=== PATIENT | male | born 1955 | race African-American/Black ===

== ENCOUNTER 2018-08-17 07:24 | Inpatient (IN) | payer OTHER ==
--- NOTE | 2018-08-17 07:40 | PDOC ---
History of Present Illness - General Chief Complaint: Rectal Bleed Stated Complaint: RECTAL BLEEDING Time Seen by Provider: 08/17/18 07:39 - History of Present Illness Initial Comments: 08/17/18 08:56 The patient is a 63 year old male with a history of HTN, anxiety who presents for evaluation of rectal bleeding. The patient notes a 3 day history of bright red in his stool with black colored stool as well. He notes that he has been experiencing blood in his stool with every bowel movement. He states that today , he began feeling extremely fatigued prompting his presentation to the ED for further evaluation. He denies ever experiencing rectal bleeding in the past and otherwise denies fevers, chills, SOB, chest pain, nausea, vomiting, abdominal pain, or changes with urination. Of note, the patient reports almost daily alcohol use but is unsure of the amount of alcohol. Past History - Past Medical History Allergies/Adverse Reactions: Allergies Allergy/AdvReac Type Severity Reaction Status Date / Time No Known Allergies Allergy Verified 08/17/18 07:46 COPD: No HTN: Yes Psychiatric Problems: Yes (anxiety) Other medical history: ETOH - Suicide/Smoking/Psychosocial Hx Smoking History: Never smoked Have you smoked in the past 12 months: No Information on smoking cessation initiated: No Hx Alcohol Use: Yes Drug/Substance Use Hx: No Review of Systems - Review of Systems Comments:: 08/17/18 09:15 Constitutional: Fatigue. No fevers, chills, malaise HEENT: No Rhinorrhea, nasal congestion, visual changes Cardiovascular: No chest pain, syncope, palpitations, lightheadedness Respiratory: No Cough, SOB, Hemoptysis, Gastrointestinal: BRBPR, Melena. No Abdominal pain, Nausea, Vomiting, Constipation, Diarrhea, Genitourinary: No Dysuria, Frequency, Urgency, Hesitancy, Hematuria, Flank pain Musculoskeletal: No Myalgia, arthralgia Skin: Pallor. No rashes, itching, bruising, Neurologic: No Headache, Dizziness, Numbness, Weakness, or Tingling Psychiatric: No Hallucinations. No SI or HI *Physical Exam - Vital Signs Last Vital Signs Temp Pulse Resp BP Pulse Ox 98.3 F 112 H 16 111/56 L 100 08/17/18 07:27 08/17/18 07:27 08/17/18 07:27 08/17/18 07:27 08/17/18 07:27 - Physical Exam Comments: 08/17/18 09:16 General Appearance: Nourished. No Apparent Distress HEENT: EOMI, ALONDRA. Conjuctival pallor noted on exam. No Pharyngeal Erythema, Tonsillar Exudate, Tonsillar Erythema Neck: No Cervical Lymphadenopathy Respiratory/Chest: Lungs Clear, Normal Breath Sounds. No Crackles, Rales, Rhonchi, Wheezing Cardiovascular: Regular Rhythm, Tachycardic Rate. No Murmur, Gallops, Rubs Gastrointestinal/Abdominal: Normal Bowel Sounds, Soft. No Guarding, Rebound, Tenderness Rectal Exam: Significant amount of dark red blood noted around the rectum. Dark red stool on rectal exam. No notable internal or external hemorrhoids. No fissures noted. Musculoskeletal: No CVA Tenderness Extremity: Normal Capillary Refill Integumentary: Pallor noted on exam. Dry, Warm Neurologic: Fully Oriented, Alert, Normal Mood/Affect, Normal Response, Heart Score/ECG Review #1 ECG reviewed & interpreted by me at: 10:22 08/17/18 10:22 Sinus Tachycardic No acute ST Changes HR 113 VA 150 QRS 72 QTc 485 ED Treatment Course - LABORATORY CBC & Chemistry Diagram: 08/17/18 07:49 08/17/18 07:49 Medical Decision Making - Medical Decision Making 08/17/18 09:19 The patient is a 63 year old male with a history of HTN, anxiety who presents for evaluation of rectal bleeding. Differential includes but is not limited to : GI bleed, Anemia, Infectious, Metabolic Derangement. Given the patient's history and physical exam, we will obtain a cbc, cmp, coags, type and screen, stool of occult blood, ekg, chest plain film to evaluate further. We will continue to monitor and reassess while here in the ED. 08/17/18 09:37 CBC demonstrates a hgb of 4. CMP is unremarkable. Stool for occult blood is positive. Chest plain film is unremarkable as read by our radiologist. The patient's symptoms are likely due to symptomatic anemia from a GI bleed. Given the patient's vital signs abnormalities and significant anemia, the patient will require admission with ICU monitoring. We discussed the case with Dr. Spangler with GI who is aware of the case and recommends a protonix drip. We will transfuse the patient with 2 units of PRBC. We will continue to monitor and reassess while here in the ED. 08/17/18 11:06 We discussed the case with the ICU team who accepted the patient for ICU. We discussed the case with the admitting team who accepted the patient for admission. *DC/Admit/Observation/Transfer Diagnosis at time of Disposition: GI bleed Qualifiers: GI bleed type/associated pathology: unspecified gastrointestinal hemorrhage type Qualified Code(s): K92.2 - Gastrointestinal hemorrhage, unspecified Anemia Qualifiers: Anemia type: unspecified type Qualified Code(s): D64.9 - Anemia, unspecified - Discharge Dispostion Condition at time of disposition: Guarded Decision to Admit order: Yes - Referrals - Patient Instructions - Post Discharge Activity
[2018-08-17 08:25] LABS: BASO % 0.6 % (0-2.0); EOS % 0.9 % (0-4.5); HEMATOCRIT 11.9 % (35.4-49); LYMPH % 16.3 % (8-40); MCH 31.4 pg (25.7-33.7); MCHC 33.9 g/dl (32.0-35.9); MEAN CELL VOLUME 92.7 fl (80-96); MEAN PLT VOLUME 8.5 fl (7.5-11.1); MONO % 6.4 % (3.8-10.2); NEUT % 75.8 % (42.8-82.8); RBC 1.28 M/mm3 (4.00-5.60); RDW 18.2 % (11.9-15.9); WHITE BLOOD COUNT 9.8 K/mm3 (4.0-10.0)
[2018-08-17 08:47] LABS: ALBUMIN 2.2 g/dl (3.4-5.0); ALK PHOS 38 U/L (45-117); ANION GAP 9 MMOL/L (8-16); BILIRUBIN,TOTAL 0.3 mg/dL (0.2-1); BLOOD UREA NITROGEN 22.7 mg/dL (7-18); CALCIUM 7.4 mg/dL (8.5-10.1); CHLORIDE 107 mmol/L (98-107); CO2 22 mmol/L (21-32); CREATININE 1.3 mg/dL (0.55-1.3); GLUCOSE,RANDOM 169 mg/dL (74-106); POTASSIUM 3.8 mmol/L (3.5-5.1); SGOT/AST 20 U/L (15-37); SGPT/ALT 13 U/L (13-61); SODIUM 138 mmol/L (136-145); TOT PROT 4.6 g/dl (6.4-8.2)
[2018-08-17 08:48] LABS: INR 1.23 (0.83-1.09); PROTHROMBIN TIME (PATIENT) 14.5 SEC (9.7-13.0)
--- NOTE | 2018-08-17 08:49 | EKG ---
Test Reason : Blood Pressure : / mmHG Vent. Rate : 113 BPM Atrial Rate : 113 BPM P-R Int : 150 ms QRS Dur : 072 ms QT Int : 354 ms P-R-T Axes : 056 046 055 degrees QTc Int : 485 ms SINUS TACHYCARDIA OTHERWISE NORMAL ECG NO PREVIOUS ECGS AVAILABLE Confirmed by CASSIE BELL, JOSH ([id number]) on 08/17/2018 8:48:44 AM Referred By: Confirmed By:JOSH MATTHEWS MD
[2018-08-17] MEDS ORDERED: PANTOPRAZOLE SODIUM 40 MG VIAL IVPUSH ONE (08:59)
--- NOTE | 2018-08-17 09:08 | PDOC ---
Attending Attestation - Resident Resident Name: Stephan Carty - ED Attending Attestation I have performed the following: I have examined & evaluated the patient, The case was reviewed & discussed with the resident, I agree w/resident's findings & plan, Exceptions are as noted - HPI HPI: 08/17/18 09:07 63 years old with past medical history significant for hypertension and anxiety no previous history of GI bleed not on any anticoagulation presents to the emergency Department with three-day history of bright red blood per rectum. Blood is mixed with stool approximately 1-2 episodes per day. Patient now feeling lightheaded with some chest discomfort and generalized weakness. Symptoms are moderate persistent constant with no exacerbating or relieving factors. No history of similar. - Physicial Exam PE: 08/17/18 09:07 Vitals: Triage Vital signs reviewed General Appearance: no acute distress, well nourished well developed, Neck: Supple;No Nucal rigidity Chest Wall: Nontender Cardiac: Regular rate and rhythym, no murmurs, no rubs, no gallops, Lungs: Clear to auscultation bilateral, good air movement bilaterally, Abdomen: Soft, non distended, normal bowel sounds, non tender to palpation Rectal: Bright red blood per rectum mixed with dark stool Extremities: Full range of motion to all extremities, no cyanosis, clubbing, or edema Skin: Warm and dry, no rashes or lesions, no rash, no petechiae Psych: normal mood, normal affect - Critical Care Time Total Critical Care Time: 35 Critical Care Statement: The care of this patient involved high complexity decision making to prevent further life threatening deterioration of the patient 's condition and/or to evaluate & treat vital organ system(s) failure or risk of failure. - Medical Decision Making 08/17/18 09:08 History examination consistent with lower GI bleed 2 IVs placed Patient noted to be tachycardic Labs notable for hemoglobin of 4. 2 units PRBCs ordered GI consultation placed, patient has no GI is a patient at the [facility] no previous colonoscopy or endoscopy in the past. ICU consulted for higher level monitoring Heart Score/ECG Review - ECG Impressions Comment:: 08/17/18 14:48 EKG performed at 7:55 AM demonstrates sinus tachycardia [address] elevations or T-wave inversions will access. WI interval 150, QRS 72, QTC 45. Interpreted by me.
[2018-08-17] MEDS ORDERED: PANTOPRAZOLE SODIUM 40 MG VIAL ONE ×2 (09:17→10:10)
[2018-08-17] MEDS: PANTOPRAZOLE SODIUM 80 MG in SODIUM CHLORIDE 100 ML IVPB SCH ×2 (10:05→13:33)
[2018-08-17] MEDS ORDERED: OCTREOTIDE ACETATE 200 MCG, OCTREOTIDE ACETATE 1,000 MCG in DEXTROSE 5%-WATER - 496 ML IVPB SCH (11:00)
--- NOTE | 2018-08-17 11:20 | CONSULT ---
Consultation: REQUESTING PROVIDER: Dr. Edgar CONSULT REQUEST: GI bleed HISTORY OF PRESENT ILLNESS: 63 year old male with a history of hypertension, anxiety, alcohol abuse, and questionable pleural fluid tap 1 month ago at the [facility] presents to the hospital for a 3 day history of bright red blood per rectum. Patient reports that he began seeing blood around the stool on with every bowel movement. States that since then, his bowel movements are composed of solid stools and he denies overt blood in the toilet. States that this has never happened to him before. Reports mild epigastric abdominal pain, lightheadedness and weakness. Denies any nausea, vomiting, diarrhea, fevers or chills. Denies any NSAID use or liver pathology in the past. Reports drinking 1 liter of vodka every day for many years. Denies family history of colon cancer. Reports having an EGD/colonoscopy in 2010 which was normal. He was admitted to the [facility] around 1 month ago and states that he had fluid in the lung, for which he was tapped, but he does not recall his diagnosis. Denies Smoking Former user of cocaine, hasn't used in many years Daily alcohol 1 L of vodka, in a rehab program Surgeries: Hip replacement, no abdominal surgeries Occupation: former truck assembler and mechanical engineering advisor, now retired. REVIEW OF SYSTEMS: CONSTITUTIONAL: generalized weakness Absent: fever, chills, diaphoresis, malaise, loss of appetite, weight change HEENT: Absent: rhinorrhea, nasal congestion, throat pain, throat swelling, difficulty swallowing, mouth swelling, ear pain, eye pain, visual changes CARDIOVASCULAR: Absent: chest pain, syncope, palpitations, irregular heart rate, lightheadedness , peripheral edema RESPIRATORY: Absent: cough, shortness of breath, dyspnea with exertion, orthopnea, wheezing, stridor, hemoptysis GASTROINTESTINAL: abdominal pain, hematochezia Absent: abdominal distension, nausea, vomiting, diarrhea, constipation, melena GENITOURINARY: Absent: dysuria, frequency, urgency, hesitancy, hematuria, flank pain, genital pain MUSCULOSKELETAL: Absent: myalgia, arthralgia, joint swelling, back pain, neck pain SKIN: Absent: rash, itching, pallor HEMATOLOGIC/IMMUNOLOGIC: Absent: easy bleeding, easy bruising, lymphadenopathy, frequent infections ENDOCRINE: Absent: unexplained weight gain, unexplained weight loss, heat intolerance, cold intolerance NEUROLOGIC: Absent: headache, focal weakness or paresthesias, dizziness, unsteady gait, seizure, mental status changes, bladder or bowel incontinence PSYCHIATRIC: Absent: anxiety, depression, suicidal or homicidal ideation, hallucinations. PHYSICAL EXAMINATION Vital Signs - 24 hr 08/17/18 08/17/18 07:27 09:30 Temperature 98.3 F Pulse Rate 112 H Pulse Rate [ 105 H Left Radial] Respiratory 16 18 Rate Blood Pressure 111/56 L Blood Pressure 98/56 L [Right Arm] O2 Sat by Pulse 100 Oximetry (%) GENERAL: A&Ox3, no acute distress EYES: PERRLA, EOMI, sclera pale ENT: Dry mucus membranes, no blood in the pharynx NECK: No JVD LUNGS: CTA, no wheezes HEART: tachycardic, no murmurs ABDOMEN: Soft, mildly tender to palpation in the epigastrum, BS present MUSCULOSKELETAL: No CVA Tenderness EXTREMITIES: 2+ pulses, no edema. NEUROLOGICAL: Cranial nerves II-XII intact, no focal deficits RECTAL: blood in rectal vault, no hemorrhoids noted Laboratory Results - last 24 hr 08/17/18 08/17/18 08/17/18 07:35 07:49 07:49 WBC 9.8 RBC 1.28 L Hgb 4.0 L* Hct 11.9 L MCV 92.7 MCH 31.4 MCHC 33.9 RDW 18.2 H MPV 8.5 Absolute Neuts (auto) 7.5 Neutrophils % 75.8 Lymphocytes % 16.3 Monocytes % 6.4 Eosinophils % 0.9 Basophils % 0.6 Nucleated RBC % 0 PT with INR 14.50 H INR 1.23 H Sodium Potassium Chloride Carbon Dioxide Anion Gap BUN Creatinine Est GFR (CKD-EPI)AfAm Est GFR (CKD-EPI)NonAf Random Glucose Calcium Total Bilirubin AST ALT Alkaline Phosphatase Total Protein Albumin Stool Occult Blood Positive Blood Type Antibody Screen Crossmatch 08/17/18 08/17/18 08/17/18 07:49 07:49 09:21 WBC RBC Hgb Hct MCV MCH MCHC RDW MPV Absolute Neuts (auto) Neutrophils % Lymphocytes % Monocytes % Eosinophils % Basophils % Nucleated RBC % PT with INR INR Sodium 138 Potassium 3.8 Chloride 107 Carbon Dioxide 22 Anion Gap 9 BUN 22.7 H Creatinine 1.3 Est GFR (CKD-EPI)AfAm 67.78 Est GFR (CKD-EPI)NonAf 58.48 Random Glucose 169 H Calcium 7.4 L Total Bilirubin 0.3 AST 20 ALT 13 Alkaline Phosphatase 38 L Total Protein 4.6 L Albumin 2.2 L Stool Occult Blood Blood Type A POSITIVE A POSITIVE Antibody Screen Negative Crossmatch See Detail Active Medications Generic Name Dose Route Start Last Admin Trade Name Freq PRN Reason Stop Dose Admin Chlorhexidine Gluconate 1 applic 08/17/18 22:00 Hibiclens For Decolonization - TP HS NATALIIA Pantoprazole Sodium 80 mg/ 100 mls @ 10 mls/hr 08/17/18 09:30 08/17/18 10:05 Sodium Chloride IVPB 10 mls/hr Q10H NATALIIA Administration 8 MG/HR Octreotide Acetate 200 mcg/ 500 mls @ 20.833 mls/hr 08/17/18 11:00 Octreotide Acetate 1,000 mcg/ IVPB Dextrose ASDIR NATALIIA Lactated Ringer's 1,000 ml in 1,000 mls @ 125 mls/hr 08/17/18 11:00 Lactated Ringers Solution IV ASDIR NATALIIA Mupirocin 1 applic 08/17/18 22:00 Bactroban Ointment (For Decolonization) - NS 08/22/18 21:59 BID NATALIIA ASSESSMENT/PLAN: 63 year old male with a history of hypertension, anxiety, alcohol abuse, and questionable pleural fluid tap 1 month ago at the [facility] presents to the hospital for a 3 day history of bright red blood per rectum. #Neuro -A&O, no neurologic issues at present -CIWA 0, monitor for withdrawal symptoms #Cardiovascular -tachycardic, likely 2/2 acute blood loss anemia from GI bleed -EKG shows sinus tachycardia with a rate of 113, QTc 485 -patient has a history of hypertension, would hold antihypertensives in setting of GI bleed #Pulmonary -no active issues -patient reportedly had a thoracentesis at the [facility] 1 month ago for fluid in the lungs, we do not have records of this #Gastrointestinal: -patient has an acute GI bleed, possibly a brisk upper GI bleed from varices due to alcohol abuse/cirrhosis vs peptic ulcer disease -two large bore IVs -hemodynamically stable at present, monitor blood pressures -aggressive fluid resuscitation -2U PRBCs ordered -type and screen/coags done -repeat H&H after first and second unit -protonix ggt -octreotide ggt -ICU monitoring -GI consulted #Prophylaxis -recommend SCDS Dispo: We will continue to follow the patient. Thank you for this consultative opportunity. Visit type - Emergency Visit Emergency Visit: Yes ED Registration Date: 08/17/18 Care time: The patient presented to the Emergency Department on the above date and was hospitalized for further evaluation of their emergent condition. - New Patient This patient is new to me today: Yes Date on this admission: 08/17/18 - Critical Care Critical Care patient: Yes Total Critical Care Time (in minutes): 36 Critical Care Statement: The care of this patient involved high complexity decision making to prevent further life threatening deterioration of the patient 's condition and/or to evaluate & treat vital organ system(s) failure or risk of failure.
--- NOTE | 2018-08-17 11:43 | HP ---
CHIEF COMPLAINT: dizziness, fatigue, dark stools with bright red blood PCP: at [facility] HISTORY OF PRESENT ILLNESS: 63 yom with PMHx of HTN, anxiety, major depression requiring inpatient psych 7 years ago, Alcohol abuse (sips vodka through the day), comes with onset of dark stools 2 days ago, Has been feeling weak and fatigued, with poor oral intake over last 2 days. Today when to the bathroom noted dark stools with massive bloody BM, felt severely weak, fatigued, slipped on his own blood, so came to the ED. Denies any head trauma. Patient reports long standing h/o ETOH abuse dating back 2011, was in rehab few months ago, but relapsed. Reports upper endoscopy within the last 1 year, reportedly unremarkable which he had for GERD like symptoms. Denies any NSAIDS use. Reports some epigastric discomfort today. Reports last colonoscopy in 2011, no famHx of GI malignancy. 12 point ROS done, as above, Denies any SI/HI currently. No fevers/chills, urinary symptoms. ER course was notable for: (1) 2 large bore IVs, (2) PRBC (3) GI and ICU consult Recent Travel: Denies PAST MEDICAL HISTORY: HTN, Anxiety, Major depression, Alcohol abuse PAST SURGICAL HISTORY: Denies Social History: Smoking: remote few cig a day from teens to 1988 Alcohol: "sips vodka throughout the day" Drugs: sniffed crack cocaine years ago, none since 2006 Lives alone, no family around Family History: Allergies No Known Allergies Allergy (Verified 08/17/18 07:46) HOME MEDICATIONS: REVIEW OF SYSTEMS 12 point ROS done, per HPI PHYSICAL EXAMINATION Vital Signs - 24 hr 08/17/18 08/17/18 07:27 09:30 Temperature 98.3 F Pulse Rate 112 H Pulse Rate [ 105 H Left Radial] Respiratory 16 18 Rate Blood Pressure 111/56 L Blood Pressure 98/56 L [Right Arm] O2 Sat by Pulse 100 Oximetry (%) Intake & Output 08/14/18 08/15/18 08/16/18 08/17/18 23:59 23:59 23:59 23:59 Weight 190 lb GENERAL: Awake,pos pallor, weak looking, fatigued, short of breath with minimal activity HEAD: Normal with no signs of trauma. EYES: Pupils equal, round and reactive to light, extraocular movements intact, sclera anicteric, conjunctiva clear. No lid lag. EARS, NOSE, THROAT: Ears normal, nares patent, oropharynx clear without exudates. dry mucous membrane NECK: Normal range of motion, supple, no JVD LUNGS: Breath sounds equal, clear to auscultation bilaterally. No wheezes, and no crackles. No accessory muscle use. HEART: S1S2 regular tachycardic ABDOMEN: Soft, mild epigastric tenderness, no voluntary or involuntary guarding or rigidity, pos bowel sounds RECTAL: Dried blood across the thigh, multiple large clots with fresh blood in the rectal area, dark stools, some amber-rectal erythema MUSCULOSKELETAL: Normal range of motion at all joints. No bony deformities or tenderness. No CVA tenderness. UPPER EXTREMITIES: 2+ pulses, warm, well-perfused. No cyanosis. No clubbing. No peripheral edema. LOWER EXTREMITIES: 2+ pulses, warm, well-perfused. No calf tenderness. No peripheral edema. NEUROLOGICAL: AAOx3, Cranial nerves II-XII grossly intact. Normal speech. Gait not observed PSYCHIATRIC: Cooperative. Good eye contact. Appropriate mood and affect. SKIN: Warm, dry, decreased turgor, no rashes or lesions noted, normal capillary refill. Laboratory Results - last 24 hr 08/17/18 08/17/18 08/17/18 07:35 07:49 07:49 WBC 9.8 RBC 1.28 L Hgb 4.0 L* Hct 11.9 L MCV 92.7 MCH 31.4 MCHC 33.9 RDW 18.2 H MPV 8.5 Absolute Neuts (auto) 7.5 Neutrophils % 75.8 Lymphocytes % 16.3 Monocytes % 6.4 Eosinophils % 0.9 Basophils % 0.6 Nucleated RBC % 0 PT with INR 14.50 H INR 1.23 H Sodium Potassium Chloride Carbon Dioxide Anion Gap BUN Creatinine Est GFR (CKD-EPI)AfAm Est GFR (CKD-EPI)NonAf Random Glucose Calcium Total Bilirubin AST ALT Alkaline Phosphatase Creatine Kinase Troponin I Total Protein Albumin Stool Occult Blood Positive Blood Type Antibody Screen Crossmatch 08/17/18 08/17/18 08/17/18 07:49 07:49 09:21 WBC RBC Hgb Hct MCV MCH MCHC RDW MPV Absolute Neuts (auto) Neutrophils % Lymphocytes % Monocytes % Eosinophils % Basophils % Nucleated RBC % PT with INR INR Sodium 138 Potassium 3.8 Chloride 107 Carbon Dioxide 22 Anion Gap 9 BUN 22.7 H Creatinine 1.3 Est GFR (CKD-EPI)AfAm 67.78 Est GFR (CKD-EPI)NonAf 58.48 Random Glucose 169 H Calcium 7.4 L Total Bilirubin 0.3 AST 20 ALT 13 Alkaline Phosphatase 38 L Creatine Kinase 101 Troponin I < 0.02 Total Protein 4.6 L Albumin 2.2 L Stool Occult Blood Blood Type A POSITIVE A POSITIVE Antibody Screen Negative Crossmatch See Detail CXR - no acute process EKG sinus tach 112 ASSESSMENT/PLAN: 63 yom with PMHx of HTN, ETOH abuse, Anxiety, major depression admitted with acute gastrointestinal haemorrhage with hemodynamic instability. -Acute massive gastrointestinal haemorrhage, Esophageal varices vs PUD, r/o mass , vs AVM, low suspicion for diverticular, haemorrhoidal -Acute severe blood loss anemia -h/o HTN -Anxiety -Major depression -h/o Suicidal ideation requiring inpatient psychiatric hospitalization Plan: 2 large bore IVs, Protonix/Octreotide drip, Admit to ICU. Transfuse 2 units PRBC, Aggressive volume resuscitation. Case discussed in detail with GI Dr. Spangler at 11:14 AM, notified of current rectal exam, Hb 4, my concerns for ongoing gastrointestinal haemorrhage with severe blood loss, ongoing hemodynamic concerns with tachycardia and SBP 90s- 100s in this patient with known h/o HTN and significant h/o ETOH abuse and urgency of the situation was expressed. CT A/P with contrast (discussed with ED Dr Carty) Currently on nifedipine/metoprolol/buspiron/buproprion, unsure of doses. Hold for now DVTPPX SCDs Dispo Admit to ICU. Plan discussed with patient in detail, all questions answered. Care co-ordinated with ED and GI Total critical care time spent 65 min. Visit type - Emergency Visit Emergency Visit: Yes ED Registration Date: 08/17/18 Care time: The patient presented to the Emergency Department on the above date and was hospitalized for further evaluation of their emergent condition. - New Patient This patient is new to me today: Yes Date on this admission: 08/17/18 - Critical Care Critical Care patient: Yes Total Critical Care Time (in minutes): 65 Critical Care Statement: The care of this patient involved high complexity decision making to prevent further life threatening deterioration of the patient 's condition and/or to evaluate & treat vital organ system(s) failure or risk of failure.
[2018-08-17] MEDS ORDERED: OCTREOTIDE ACETATE IVPB SCH (12:59)
[2018-08-17] MEDS ORDERED: DEXTROSE 5% IVPB SCH (12:59)
[2018-08-17] MEDS ORDERED: WATER IVPB SCH (12:59)
--- NOTE | 2018-08-17 13:00 | CON.GI ---
Consult - History of Present Illness History of Present Illness: GI CONSULT DICTATED - NPO / IVF'S - PPI INFUSION - TRANSFUSE PRBC TO HG OF 9 -10 - POST TRANSFUSION CBC ; SERIAL CBC - ICU CONSULT - WILL PLAN FOR DIAGNOSTIC EGD ONCE THE PATIENT IS ADEQUATELY RESUSCITATED SEE FULL CONSULT. - Alcohol/Substance Use Hx Alcohol Use: Yes - Smoking History Smoking history: Never smoked Have you smoked in the past 12 months: No Home Medications - Allergies Allergies/Adverse Reactions: Allergies Allergy/AdvReac Type Severity Reaction Status Date / Time No Known Allergies Allergy Verified 08/17/18 07:46 - Home Medications Home Medications: Ambulatory Orders Unobtainable 08/17/18 Physical Exam-GI Vital Signs: Vital Signs Temperature 98.3 F 08/17/18 07:27 Pulse Rate 105 H 08/17/18 09:30 Respiratory Rate 18 08/17/18 09:30 Blood Pressure 98/56 L 08/17/18 09:30 O2 Sat by Pulse Oximetry (%) 100 08/17/18 07:27 Labs: CBC, BMP 08/17/18 07:49 08/17/18 07:49 INR, PTT INR 1.23 (0.83-1.09) H 08/17/18 07:49
[2018-08-17] MEDS: LACTATED RINGERS SOLUTION 1,000 ML/1,000 ML INFUS.BAG IV SCH ×2 (13:11→23:02)
--- NOTE | 2018-08-17 14:13 | PN ---
Teaching Attending Note Name of Resident: Jagdish Delgadillo ATTENDING PHYSICIAN STATEMENT I saw and evaluated the patient. I reviewed the resident's note and discussed the case with the resident. I agree with the resident's findings and plan as documented. SUBJECTIVE: Pt seen and examined in the ICU. Receiving 2nd unit PRBC. Denies shortness of breath, chest pain. Does report some epigastric discomfort. OBJECTIVE: Vital Signs Period Temp Pulse Resp BP Sys/Bryan Pulse Ox Last 24 Hr 98.3 F-98.8 F 102-112 16-24 98-134/56-76 97-100 Intake & Output 08/14/18 08/15/18 08/16/18 08/17/18 23:59 23:59 23:59 23:59 Weight 86.183 kg Gen: NAD but pale Heart: tachycardic, regular Lung: decreased breath sounds at the bases Abd: soft, mild TTP epigastric region, no rebound Ext: no edema CBC, BMP 08/17/18 07:49 08/17/18 07:49 Active Medications Chlorhexidine Gluconate (Hibiclens For Decolonization -) 1 applic TP HS NATALIIA Pantoprazole Sodium 80 mg/ (Sodium Chloride) 100 mls @ 10 mls/hr IVPB Q10H NATALIIA Last Admin: 08/17/18 13:33 Dose: 10 mls/hr Lactated Ringer's (Lactated Ringers Solution) 1,000 ml in 1,000 mls @ 125 mls/ hr IV ASDIR NATALIIA Last Admin: 08/17/18 13:11 Dose: 125 mls/hr Octreotide Acetate 1,200 mcg/ (Dextrose) 500 mls @ 20.833 mls/hr IVPB ASDIR NATALIIA Last Admin: 08/17/18 13:04 Dose: 20.833 mls/hr Mupirocin (Bactroban Ointment (For Decolonization) -) 1 applic NS BID NATALIIA Stop: 08/22/18 21:59 ASSESSMENT AND PLAN: GI Bleed Acute Blood Loss Anemia Alcohol Abuse Depression HTN - transfuse PRBC - monitor H/H - protonix gtt - empiric octreotide gtt - IVF - NPO - ensure large bore peripheral access - monitor for withdrawal symptoms - GI for endoscopy - DVT prophylaxis - ICU monitoring
[2018-08-17 14:41] LABS: LIPASE 4132 U/L (73-393)
[2018-08-17 15:15] LABS: PLATELET COUNT 371 K/MM3 (134-434)
--- NOTE | 2018-08-17 15:56 | CONS ---
DATE OF CONSULTATION: 08/17/2018 The patient is a 63-year-old man with a past medical history of hypertension, anxiety disorder, and major depression, also with alcohol abuse. He says he drinks a small amount of vodka daily apparently for at least the last 5 years. He was in an outpatient alcohol rehab facility in the past. He presents to the hospital with complaints of blood in the stool for the past couple of days. He states he has noticed some bright red blood and some dark stool. Apparently after his last bloody bowel movement he became very weak and slipped on his own blood, prompting him to come to the emergency room for further evaluation. While in the emergency room he has not had any further episodes of melena or hematochezia. Apparently he had an upper endoscopy a year ago which he reports to be normal. Also with a colonoscopy in 2011, which he also reports to be normal. He admits to taking some aspirin over the past couple of weeks but denies any other NSAID use. He also complains of some epigastric discomfort which has been ongoing for the past couple of weeks. He denies any nausea, vomiting or hematemesis or syncope or shortness of breath or chest pain. PAST MEDICAL/SURGICAL HISTORY: As listed in the HPI. ALLERGIES: No known drug allergies. SOCIAL HISTORY: Smokes a few cigarettes daily, drinks alcohol. The exact quantity is not known. He appears to be somewhat unreliable. Drugs: He used to use cocaine in the past, none recently, and he lives alone. HOME MEDICATIONS: Denies. REVIEW OF SYSTEMS: As per the HPI. PHYSICAL EXAMINATION: Vital Signs: Temperature 98.5, pulse 102, blood pressure 113/74, respiratory rate 12. Saturation 99% on room air. General: No acute distress. HEENT: Anicteric sclerae. Cardiovascular: S1, S2, regular rate and rhythm. Lungs: Bilateral clear to auscultation. Abdomen: Soft, with some tenderness to deep palpation in the epigastrium without any rebound or guarding. Extremities: No edema. Rectal: Exam by the ER revealed some old blood. LABORATORY: White blood cell count 9.8, hemoglobin 4, hematocrit 11, MCV 92. Platelet count is pending. Neutrophils 75. INR 1.2. Sodium 138, potassium 3.8 , BUN/creatinine 22/1.3. Glucose 169. Calcium 7.4, AST 20, ALT 13, alkaline phosphatase 38, troponin negative. Albumin 2.2. Lipase is pending. Stool for occult blood positive. Abdomen and pelvis CT scan was ordered and is pending results. IMPRESSION: Severe anemia, melena, hematochezia an upper gastrointestinal source of bleeding will need to be excluded secondary to peptic ulcer disease/ angioectasia/ varices considering he drinks alcohol. There is no sign of an overt gastrointestinal bleed at this time. Patient is hemodynamically stable. RECOMMENDATION: Follow up CT scan results. Platelet count will need to be resulted. Protonix infusion. Considering he drinks alcohol, would continue him also on an octreotide drip, n.p.o., IV fluids, ICU consultation. Transfuse PRBCs to hemoglobin of 9. Serial CBCs q.8 hours and a post transfusion CBC. Once he is volume resuscitated, will plan for an urgent endoscopy which can be done later today pending his CT scan results. Plan of care was discussed with the primary medical team. Will follow this patient closely with you. DO DELFIN MAYO/[id number] MTDD
[2018-08-17 16:01] LABS: BASO % 0.4 % (0-2.0); EOS % 0.7 % (0-4.5); HEMATOCRIT 17.6 % (35.4-49); LYMPH % 17.9 % (8-40); MCHC 33.2 g/dl (32.0-35.9); MEAN CELL VOLUME 90.5 fl (80-96); MEAN PLT VOLUME 8.2 fl (7.5-11.1); MONO % 7.8 % (3.8-10.2); NEUT % 73.2 % (42.8-82.8); RBC 1.95 M/mm3 (4.00-5.60); RDW 17.4 % (11.9-15.9); WHITE BLOOD COUNT 12.4 K/mm3 (4.0-10.0)
[2018-08-17 16:16] LABS: HEMOGLOBIN 5.9 GM/dL (11.7-16.9)
[2018-08-17] MEDS ORDERED: METOCLOPRAMIDE HCL INJECTION 10 MG/2 ML VIAL IVPUSH ONE (17:21)
[2018-08-17 17:54] LABS: PLATELET COUNT 186 K/MM3 (134-434)
[2018-08-17 17:55] LABS: PLATELET ESTIMATE ADEQUATE
[2018-08-17] MEDS ORDERED: PT OWN MED DRAWER 7, Y5N ONE (20:12)
[2018-08-17] MEDS ORDERED: KETAMINE HCL 500 MG/10 ML VIAL ONE (20:57)
[2018-08-17] MEDS ORDERED: MIDAZOLAM HCL 2 MG/2 ML SINGLE DOSE VIAL ONE ×2 (20:57)
[2018-08-17] MEDS ORDERED: EPINEPHrine 1:10,000 (P-F SYR) 1 MG/10 ML DISP.SYRIN ONE (21:02)
[2018-08-17] MEDS: traZODone HCL 100 MG TABLET (FP) PO SCH (22:54)
[2018-08-17] MEDS: CHLORHEXIDINE GLUCONATE 4% CLEANSER FOR DECOLONIZATION TP SCH (22:59)
[2018-08-17] MEDS: MUPIROCIN 2% TOPICAL OINTMENT FOR DECOLONIZATION NS SCH ×2 (23:00→23:01)
[2018-08-18 07:01] LABS: ALBUMIN 2.1 g/dl (3.4-5.0); BILIRUBIN,TOTAL 1.9 mg/dL (0.2-1); BLOOD UREA NITROGEN 17.7 mg/dL (7-18); CALCIUM 7.2 mg/dL (8.5-10.1); CREATININE 1.1 mg/dL (0.55-1.3); MAGNESIUM 1.7 mg/dL (1.8-2.4); PHOSPHOROUS 2.9 mg/dL (2.5-4.9); POTASSIUM 4.2 mmol/L (3.5-5.1); TOT PROT 4.3 g/dl (6.4-8.2)
[2018-08-18] MEDS: LACTATED RINGERS SOLUTION 1,000 ML/1,000 ML INFUS.BAG IV SCH ×2 (07:13→15:58)
[2018-08-18] MEDS: PANTOPRAZOLE SODIUM 80 MG in SODIUM CHLORIDE 100 ML IVPB SCH ×3 (07:13→15:29)
[2018-08-18 07:21] LABS: HEMOGLOBIN 7.2 GM/dL (11.7-16.9); MCH 30.1 pg (25.7-33.7); MCHC 34.6 g/dl (32.0-35.9); MEAN CELL VOLUME 87.1 fl (80-96); MEAN PLT VOLUME 8.5 fl (7.5-11.1); RBC 2.41 M/mm3 (4.00-5.60); RDW 17.3 % (11.9-15.9); WHITE BLOOD COUNT 9.4 K/mm3 (4.0-10.0)
--- NOTE | 2018-08-18 07:37 | PN.GI ---
GI Progress Note Subjective: PATIENT STATES HE IS FEELING BETTER / LESS EPIGASTRIC DISCOMFORT; HAD ONE BOWEL MOVEMENT - DARK IN COLOR WITH BRIGHT RED BLOOD. DENIES N/V; STATES HE IS HUNGRY - Objective Vital Signs: Vital Signs Temperature 98.6 F 08/18/18 02:00 Pulse Rate 92 H 08/18/18 07:00 Respiratory Rate 18 08/18/18 07:00 Blood Pressure 124/75 08/18/18 07:00 O2 Sat by Pulse Oximetry (%) 100 08/17/18 21:47 Constitutional: Well Nourished, No Distress, Calm Eyes: Yes: WNL, Conjunctiva Clear HENT: Yes: WNL Neck: Yes: WNL Cardiovascular: Yes: WNL, Regular Rate and Rhythm Respiratory: Yes: WNL, Regular, CTA Bilaterally Gastrointestinal Inspection: Yes: WNL ...Auscultate: Yes: Normoactive Bowel Sounds Extremities: Yes: WNL Edema: No Labs: CBC, BMP 08/18/18 05:35 INR, PTT INR 1.23 (0.83-1.09) H 08/17/18 07:49 Problem List - Problems (1) Pancreatitis Assessment/Plan: S/P EGD WITH FINDINGS OF MILD GASTROPATHY - NO ULCER OR BLOOD VISUALIZED. SUSPECT SECONDARY TO DIVERTICULOSIS VS. ANGIOECTASIA / SMALL BOWEL ETIOLOGY. ACUTE PANCREATITIS DDX - ETOH INDUCED VS BILIARY ETIOLOGY REC: - C/W IVF'S - ADVANCE TO CLEAR LIQUID DIET - STOP PPI INFUSION CAN CHANGE TO PROTONIX 40 MG PO QD - BLEEDING SCAN OR CTA IF DEVELOPS OVERT BLEED. - SURGERY EVALUATION - TREND CBC/ CHEMISTRY / LFT - MRCP ABD ONCE STABLE - WILL NEED A COLONOSCOPY ONCE HIS PANCREATITIS RESOLVES. - MICU CARE Code(s): K85.90 - ACUTE PANCREATITIS WITHOUT NECROSIS OR INFECTION, UNSP (2) Alcohol abuse Code(s): F10.10 - ALCOHOL ABUSE, UNCOMPLICATED (3) Anemia Code(s): D64.9 - ANEMIA, UNSPECIFIED Qualifiers: Anemia type: unspecified type Qualified Code(s): D64.9 - Anemia, unspecified (4) GI bleed Code(s): K92.2 - GASTROINTESTINAL HEMORRHAGE, UNSPECIFIED Qualifiers: GI bleed type/associated pathology: unspecified gastrointestinal hemorrhage type Qualified Code(s): K92.2 - Gastrointestinal hemorrhage, unspecified
--- NOTE | 2018-08-18 08:29 | PN ---
Physical Exam: SUBJECTIVE: Patient seen and examined at bedside- no acute events overnight; patient states that he is feeling OK just feeing a little tired and hungry however he denies ay CP/SOB/N/V; patient did have bloody stools last night according to nursing OBJECTIVE: Vital Signs Period Temp Pulse Resp BP Sys/Bryan Pulse Ox Last 24 Hr 98.1 F-98.9 F 84-118 16-24 98-143/56-84 97-100 GENERAL: The patient is awake, alert, and fully oriented, in no acute distress. EYES: PEERLA: EOMI: no scleral icterus NECK: no JVD; no lymphadenopathy LUNGS:CTA B/L; no rales, rhonchi or wheezing HEART: Regular rate and rhythm, S1, S2 without murmur, rub or gallop. ABDOMEN: Soft, slight epigastric tenderness upon palpation; nondistended +BS in all 4 quadrants EXTREMITIES: 2+ pulses, warm, well-perfused, no edema. . RECTAL: blood and stool present in rectal vault; no hemorrhoids/fissures or anal tears present Laboratory Results - last 24 hr 08/17/18 08/17/18 08/17/18 07:35 07:49 07:49 WBC 9.8 RBC 1.28 L Hgb 4.0 L* Hct 11.9 L MCV 92.7 MCH 31.4 MCHC 33.9 RDW 18.2 H Plt Count 371 MPV 8.5 Absolute Neuts (auto) 7.5 Neutrophils % 75.8 Lymphocytes % 16.3 Monocytes % 6.4 Eosinophils % 0.9 Basophils % 0.6 Nucleated RBC % 0 Platelet Estimate Platelet Comment PT with INR 14.50 H INR 1.23 H Sodium Potassium Chloride Carbon Dioxide Anion Gap BUN Creatinine Est GFR (CKD-EPI)AfAm Est GFR (CKD-EPI)NonAf Random Glucose Lactic Acid Calcium Phosphorus Magnesium Total Bilirubin AST ALT Alkaline Phosphatase Creatine Kinase Troponin I Total Protein Albumin Lipase Stool Occult Blood Positive Blood Type Antibody Screen Crossmatch 08/17/18 08/17/18 08/17/18 07:49 07:49 09:21 WBC RBC Hgb Hct MCV MCH MCHC RDW Plt Count MPV Absolute Neuts (auto) Neutrophils % Lymphocytes % Monocytes % Eosinophils % Basophils % Nucleated RBC % Platelet Estimate Platelet Comment PT with INR INR Sodium 138 Potassium 3.8 Chloride 107 Carbon Dioxide 22 Anion Gap 9 BUN 22.7 H Creatinine 1.3 Est GFR (CKD-EPI)AfAm 67.78 Est GFR (CKD-EPI)NonAf 58.48 Random Glucose 169 H Lactic Acid Calcium 7.4 L Phosphorus Magnesium Total Bilirubin 0.3 AST 20 ALT 13 Alkaline Phosphatase 38 L Creatine Kinase 101 Troponin I < 0.02 Total Protein 4.6 L Albumin 2.2 L Lipase 4132 H Stool Occult Blood Blood Type A POSITIVE A POSITIVE Antibody Screen Negative Crossmatch See Detail 08/17/18 08/18/18 08/18/18 15:50 05:35 05:35 WBC 12.4 H 9.4 RBC 1.95 L 2.41 L Hgb 5.9 L* 7.2 L Hct 17.6 L D 21.0 L D MCV 90.5 87.1 MCH 30.0 30.1 MCHC 33.2 34.6 RDW 17.4 H 17.3 H Plt Count 186 D MPV 8.2 8.5 Absolute Neuts (auto) 9.1 H Neutrophils % 73.2 Lymphocytes % 17.9 Monocytes % 7.8 Eosinophils % 0.7 Basophils % 0.4 Nucleated RBC % 0 Platelet Estimate Adequate Platelet Comment Slide scanned PT with INR INR Sodium 139 Potassium 4.2 Chloride 110 H Carbon Dioxide 26 Anion Gap 3 L BUN 17.7 Creatinine 1.1 Est GFR (CKD-EPI)AfAm 82.95 Est GFR (CKD-EPI)NonAf 71.57 Random Glucose 115 H Lactic Acid Calcium 7.2 L Phosphorus 2.9 Magnesium 1.7 L Total Bilirubin 1.9 H AST 25 ALT 13 Alkaline Phosphatase 36 L Creatine Kinase Troponin I Total Protein 4.3 L Albumin 2.1 L Lipase Stool Occult Blood Blood Type Antibody Screen Crossmatch 08/18/18 05:35 WBC RBC Hgb Hct MCV MCH MCHC RDW Plt Count MPV Absolute Neuts (auto) Neutrophils % Lymphocytes % Monocytes % Eosinophils % Basophils % Nucleated RBC % Platelet Estimate Platelet Comment PT with INR INR Sodium Potassium Chloride Carbon Dioxide Anion Gap BUN Creatinine Est GFR (CKD-EPI)AfAm Est GFR (CKD-EPI)NonAf Random Glucose Lactic Acid 0.9 Calcium Phosphorus Magnesium Total Bilirubin AST ALT Alkaline Phosphatase Creatine Kinase Troponin I Total Protein Albumin Lipase Stool Occult Blood Blood Type Antibody Screen Crossmatch Active Medications Generic Name Dose Route Start Last Admin Trade Name Freq PRN Reason Stop Dose Admin Chlorhexidine Gluconate 1 applic 06/08/19 22:00 08/17/18 22:59 Hibiclens For Decolonization - TP 1 applic HS NATALIIA Administration Pantoprazole Sodium 80 mg/ 100 mls @ 10 mls/hr 08/17/18 09:30 08/18/18 07:14 Sodium Chloride IVPB Not Given Q10H NATALIIA 8 MG/HR Lactated Ringer's 1,000 ml in 1,000 mls @ 125 mls/hr 08/17/18 11:00 08/18/18 07:13 Lactated Ringers Solution IV 125 mls/hr ASDIR NATALIIA Administration Mupirocin 1 applic 08/17/18 22:00 08/17/18 23:01 Bactroban Ointment (For Decolonization) - NS 08/22/18 21:59 1 applic BID NATALIIA Administration Trazodone HCl 300 mg 08/17/18 22:00 08/17/18 22:54 Desyrel - PO 300 mg HS NATALIIA Administration ASSESSMENT/PLAN: 63 y/o male with PMH of HTN, anxiety, MDD, alcohol abuse presents to the ED with complaints of dark stools since Sunday #Neuro -no neurological issues at this juncture -patient is AO X3 #Cardio patient has history of hypertension -currently holding antihypertensives in light of GI bleed -will monitor hemodynamics #GI GI Bleed- rectal exam this AM shows blood mixed in with stool patient is 2/p 4 units of PRBCS : repeat Hgb this AM 7.2 -underwent endoscopy yesterday showing erythematous gastropathy but no overt bleeding (no ulcers or varices seen) -patient also found to have acute on chronic pancreatitis (given CT findings and elevated lipase) -Dr. Spangler on board -NPO -protonix drip -will need colonoscopy -CBC pending for 12pm; if Hgb drops will transfuse -LR @125mls/hr #Heme patients most recent Hgb this AM was 7.2 -repeat CBC pending for 12pm this afternoon -if Hgb <7 altagracia transfuse # Psych patient not currently withdrawing from alcohol -will continue to monitor CIWA -c/w patients home trazodone F/E/N LR @125mls/hr monitor electrolytes NPO DVT PPX: SCDs in light of GI bleed GI PPX: protonix drip dispo: if repeat CBC this afternoon remains stable can be transferred to floor Problem List - Problems (1) HTN (hypertension) Code(s): I10 - ESSENTIAL (PRIMARY) HYPERTENSION (2) Alcohol abuse Code(s): F10.10 - ALCOHOL ABUSE, UNCOMPLICATED (3) Depression Code(s): F32.9 - MAJOR DEPRESSIVE DISORDER, SINGLE EPISODE, UNSPECIFIED (4) Anemia Code(s): D64.9 - ANEMIA, UNSPECIFIED Qualifiers: Anemia type: unspecified type Qualified Code(s): D64.9 - Anemia, unspecified (5) GI bleed Code(s): K92.2 - GASTROINTESTINAL HEMORRHAGE, UNSPECIFIED Qualifiers: GI bleed type/associated pathology: unspecified gastrointestinal hemorrhage type Qualified Code(s): K92.2 - Gastrointestinal hemorrhage, unspecified Visit type - Emergency Visit Emergency Visit: Yes ED Registration Date: 08/17/18 Care time: The patient presented to the Emergency Department on the above date and was hospitalized for further evaluation of their emergent condition. - New Patient This patient is new to me today: Yes Date on this admission: 08/18/18 - Critical Care Critical Care patient: Yes Total Critical Care Time (in minutes): 35 Critical Care Statement: The care of this patient involved high complexity decision making to prevent further life threatening deterioration of the patient 's condition and/or to evaluate & treat vital organ system(s) failure or risk of failure.
--- NOTE | 2018-08-18 10:35 | PN ---
Physical Exam: SUBJECTIVE: Patient seen and examined OBJECTIVE: Vital Signs Period Temp Pulse Resp BP Sys/Bryan Pulse Ox Last 24 Hr 98.1 F-98.9 F 84-118 16-24 112-143/61-84 97-100 GENERAL: Awake,pos pallor, looks better HEAD: Normal with no signs of trauma. EYES: Pupils equal, round and reactive to light, extraocular movements intact, sclera anicteric, conjunctiva clear. No lid lag. EARS, NOSE, THROAT: Ears normal, nares patent, oropharynx clear without exudates. dry mucous membrane NECK: Normal range of motion, supple, no JVD LUNGS: Breath sounds equal, clear to auscultation bilaterally. No wheezes, and no crackles. No accessory muscle use. HEART: S1S2 regular tachycardic ABDOMEN: Soft, mild epigastric tenderness, no voluntary or involuntary guarding or rigidity, pos bowel sounds RECTAL: dark maroon blob with some mucous in the amber-rectal area MUSCULOSKELETAL: Normal range of motion at all joints. No bony deformities or tenderness. No CVA tenderness. UPPER EXTREMITIES: 2+ pulses, warm, well-perfused. No cyanosis. No clubbing. No peripheral edema. LOWER EXTREMITIES: 2+ pulses, warm, well-perfused. No calf tenderness. No peripheral edema. NEUROLOGICAL: AAOx3, Cranial nerves II-XII grossly intact. Normal speech. Gait not observed PSYCHIATRIC: Cooperative. Good eye contact. Appropriate mood and affect. SKIN: Warm, dry, decreased turgor, no rashes or lesions noted, normal capillary refill. Laboratory Results - last 24 hr 08/17/18 08/17/18 08/17/18 07:49 07:49 07:49 WBC RBC Hgb Hct MCV MCH MCHC RDW Plt Count 371 MPV Absolute Neuts (auto) Neutrophils % Lymphocytes % Monocytes % Eosinophils % Basophils % Nucleated RBC % Platelet Estimate Platelet Comment Sodium 138 Potassium 3.8 Chloride 107 Carbon Dioxide 22 Anion Gap 9 BUN 22.7 H Creatinine 1.3 Est GFR (CKD-EPI)AfAm 67.78 Est GFR (CKD-EPI)NonAf 58.48 Random Glucose 169 H Hemoglobin A1c % Lactic Acid Calcium 7.4 L Phosphorus Magnesium Total Bilirubin 0.3 AST 20 ALT 13 Alkaline Phosphatase 38 L Creatine Kinase 101 Troponin I < 0.02 Total Protein 4.6 L Albumin 2.2 L Lipase 4132 H Blood Type A POSITIVE Antibody Screen Negative Crossmatch See Detail 08/17/18 08/18/18 08/18/18 15:50 05:35 05:35 WBC 12.4 H 9.4 RBC 1.95 L 2.41 L Hgb 5.9 L* 7.2 L Hct 17.6 L D 21.0 L D MCV 90.5 87.1 MCH 30.0 30.1 MCHC 33.2 34.6 RDW 17.4 H 17.3 H Plt Count 186 D MPV 8.2 8.5 Absolute Neuts (auto) 9.1 H Neutrophils % 73.2 Lymphocytes % 17.9 Monocytes % 7.8 Eosinophils % 0.7 Basophils % 0.4 Nucleated RBC % 0 Platelet Estimate Adequate Platelet Comment Slide scanned Sodium 139 Potassium 4.2 Chloride 110 H Carbon Dioxide 26 Anion Gap 3 L BUN 17.7 Creatinine 1.1 Est GFR (CKD-EPI)AfAm 82.95 Est GFR (CKD-EPI)NonAf 71.57 Random Glucose 115 H Hemoglobin A1c % Lactic Acid Calcium 7.2 L Phosphorus 2.9 Magnesium 1.7 L Total Bilirubin 1.9 H AST 25 ALT 13 Alkaline Phosphatase 36 L Creatine Kinase Troponin I Total Protein 4.3 L Albumin 2.1 L Lipase Blood Type Antibody Screen Crossmatch 08/18/18 08/18/18 05:35 05:35 WBC RBC Hgb Hct MCV MCH MCHC RDW Plt Count MPV Absolute Neuts (auto) Neutrophils % Lymphocytes % Monocytes % Eosinophils % Basophils % Nucleated RBC % Platelet Estimate Platelet Comment Sodium Potassium Chloride Carbon Dioxide Anion Gap BUN Creatinine Est GFR (CKD-EPI)AfAm Est GFR (CKD-EPI)NonAf Random Glucose Hemoglobin A1c % < 5.0 Lactic Acid 0.9 Calcium Phosphorus Magnesium Total Bilirubin AST ALT Alkaline Phosphatase Creatine Kinase Troponin I Total Protein Albumin Lipase Blood Type Antibody Screen Crossmatch Active Medications Generic Name Dose Route Start Last Admin Trade Name Freq PRN Reason Stop Dose Admin Chlorhexidine Gluconate 1 applic 08/17/18 22:00 08/17/18 22:59 Hibiclens For Decolonization - TP 1 applic HS NATALIIA Administration Pantoprazole Sodium 80 mg/ 100 mls @ 10 mls/hr 08/17/18 09:30 08/18/18 07:14 Sodium Chloride IVPB Not Given Q10H NATALIIA 8 MG/HR Lactated Ringer's 1,000 ml in 1,000 mls @ 125 mls/hr 08/17/18 11:00 08/18/18 07:13 Lactated Ringers Solution IV 125 mls/hr ASDIR NATALIIA Administration Mupirocin 1 applic 08/17/18 22:00 08/17/18 23:01 Bactroban Ointment (For Decolonization) - NS 08/22/18 21:59 1 applic BID NATALIIA Administration Trazodone HCl 300 mg 08/17/18 22:00 08/17/18 22:54 Desyrel - PO 300 mg HS NATALIIA Administration ASSESSMENT/PLAN: 63 yom with PMHx of HTN, ETOH abuse, Anxiety, major depression admitted with acute gastrointestinal haemorrhage with hemodynamic instability. -Acute massive gastrointestinal haemorrhage,s/p EGD, r/o small bowel/colon etiology, ?AVM, vs ischemic/inflammatory vs diverticular -Acute severe blood loss anemia -Acute pancreatitis, suspect alcohol mediated, less likely GB etiology -h/o HTN -Anxiety -Major depression -h/o Suicidal ideation requiring inpatient psychiatric hospitalization Plan: s/p EGD s/p 4 units PRBC, h/h noted. Still with ongoing dark BM and rectal exam with concerns for bleed/melena. Hemodynamics stable. Closely monitor H/h. If drifting down, may need bleeding scan to address if is a candidate for IR guided embolization. If stable, will tranfuse to keep Hb >8 and follow up with GI for possible colonoscopy and additional testing. Protonix drip. Can d/c octreotide drip given EGD, discuss with GI. CT A/P noted. Supportive treatment. RUQ US when stable. Suspect alcohol etiology for pancreatitis. Currently on nifedipine/metoprolol/buspiron/buproprion at home, unsure of doses. Hold for now DVTPPX SCDs Dispo Continue monitoring in ICU. Plan discussed with patient in detail, all questions answered. Care co-ordinated with ICU Total critical care time spent 38 min. Visit type - Emergency Visit Emergency Visit: Yes ED Registration Date: 08/17/18 Care time: The patient presented to the Emergency Department on the above date and was hospitalized for further evaluation of their emergent condition. - New Patient This patient is new to me today: No - Critical Care Critical Care patient: Yes Total Critical Care Time (in minutes): 38 Critical Care Statement: The care of this patient involved high complexity decision making to prevent further life threatening deterioration of the patient 's condition and/or to evaluate & treat vital organ system(s) failure or risk of failure.
--- NOTE | 2018-08-18 11:04 | PN ---
Teaching Attending Note Name of Resident: Cierra Hilton ATTENDING PHYSICIAN STATEMENT I saw and evaluated the patient. I reviewed the resident's note and discussed the case with the resident. I agree with the resident's findings and plan as documented. SUBJECTIVE: Pt seen and examined in the ICU. s/p EGD yesterday showing portal gastropathy but no source of bleed identified. Transfused 4 units PRBC. Still some bloody bowel movements. No shortness of breath, chest pain. Abdominal discomfort improving. OBJECTIVE: Vital Signs Period Temp Pulse Resp BP Sys/Bryan Pulse Ox Last 24 Hr 98.1 F-98.9 F 84-118 16-24 112-143/61-84 97-100 Intake & Output 08/15/18 08/16/18 08/17/18 08/18/18 23:59 23:59 23:59 23:59 Intake Total 2950 960 Output Total 250 400 Balance 2700 560 Weight 92.533 kg 88.592 kg Gen: NAD at rest Heart: RRR Lung: decreased breath sounds at the bases Abd: soft, nontender Ext: no edema CBC, BMP 08/18/18 05:35 08/18/18 05:35 Active Medications Chlorhexidine Gluconate (Hibiclens For Decolonization -) 1 applic TP HS [facility] Last Admin: 08/17/18 22:59 Dose: 1 applic Pantoprazole Sodium 80 mg/ (Sodium Chloride) 100 mls @ 10 mls/hr IVPB Q10H NATALIIA Last Admin: 08/18/18 07:14 Dose: Not Given Lactated Ringer's (Lactated Ringers Solution) 1,000 ml in 1,000 mls @ 125 mls/ hr IV ASDIR [facility] Last Admin: 08/18/18 07:13 Dose: 125 mls/hr Mupirocin (Bactroban Ointment (For Decolonization) -) 1 applic NS BID NATALIIA Stop: 08/22/18 21:59 Last Admin: 08/17/18 23:01 Dose: 1 applic Trazodone HCl (Desyrel -) 300 mg PO HS [facility] Last Admin: 08/17/18 22:54 Dose: 300 mg ASSESSMENT AND PLAN: GI Bleed Acute Blood Loss Anemia Alcohol Abuse Acute Pancreatitis Depression HTN - monitor H/H - transfuse as needed - protonix gtt - octreotide gtt d/c'd - IVF - NPO - ensure large bore peripheral access - will likely need colonoscopy - monitor for withdrawal symptoms - DVT prophylaxis - can monitor on floor if H/H stable
[2018-08-18 11:47] LABS: PLATELET COUNT 174.6 K/MM3 (134-434)
[2018-08-18 12:45] LABS: HEMATOCRIT 20.5 % (35.4-49); MCH 29.8 pg (25.7-33.7); MCHC 34.3 g/dl (32.0-35.9); MEAN CELL VOLUME 86.9 fl (80-96); RBC 2.36 M/mm3 (4.00-5.60); RDW 17.7 % (11.9-15.9); WHITE BLOOD COUNT 9.4 K/mm3 (4.0-10.0)
[2018-08-18 15:59] LABS: PLATELET COUNT 240 K/MM3 (134-434)
[2018-08-18] MEDS: MUPIROCIN 2% TOPICAL OINTMENT FOR DECOLONIZATION NS SCH ×2 (15:59→21:51)
[2018-08-18 20:37] LABS: HEMATOCRIT 22.7 % (35.4-49); HEMOGLOBIN 7.8 GM/dL (11.7-16.9); MCHC 34.2 g/dl (32.0-35.9); MEAN CELL VOLUME 87.7 fl (80-96); MEAN PLT VOLUME 8.2 fl (7.5-11.1); RBC 2.59 M/mm3 (4.00-5.60)
[2018-08-18 21:41] LABS: PLATELET COUNT 148 K/MM3 (134-434)
[2018-08-18] MEDS ORDERED: PT OWN MED DRAWER 7, Y5N ONE (21:50)
[2018-08-18] MEDS: CHLORHEXIDINE GLUCONATE 4% CLEANSER FOR DECOLONIZATION TP SCH (21:51)
[2018-08-18] MEDS: traZODone HCL 100 MG TABLET (FP) PO SCH (21:51)
[2018-08-19 06:12] LABS: HEMATOCRIT 21.5 % (35.4-49); HEMOGLOBIN 7.6 GM/dL (11.7-16.9); MCH 30.6 pg (25.7-33.7); MCHC 35.4 g/dl (32.0-35.9); MEAN CELL VOLUME 86.5 fl (80-96); MEAN PLT VOLUME 7.5 fl (7.5-11.1); RBC 2.49 M/mm3 (4.00-5.60); RDW 16.8 % (11.9-15.9); WHITE BLOOD COUNT 7.1 K/mm3 (4.0-10.0)
[2018-08-19 06:17] LABS: BILIRUBIN,DIRECT 0.2 mg/dL (0.0-0.2); BLOOD UREA NITROGEN 9.5 mg/dL (7-18); CALCIUM 7.2 mg/dL (8.5-10.1); CREATININE 0.9 mg/dL (0.55-1.3); MAGNESIUM 1.5 mg/dL (1.8-2.4); PHOSPHOROUS 3.2 mg/dL (2.5-4.9); POTASSIUM 3.9 mmol/L (3.5-5.1)
[2018-08-19] MEDS ORDERED: MAGNESIUM OXIDE 400 MG TABLET (FP) PO ONE (07:44)
--- NOTE | 2018-08-19 07:46 | PN ---
Physical Exam: SUBJECTIVE: Patient seen and examined at bedside- no acute events overnight' patient did have a bowel movement that was "burgundy" in color; states that he felt dizzy when he got up from the toilet but no chest pains or diaphoresis; is having slight abdominal tenderness; denies CP/SOB/N/V OBJECTIVE: Vital Signs Period Temp Pulse Resp BP Sys/Bryan Pulse Ox Last 24 Hr 98 F-98.8 F 81-98 14-21 108-144/57-85 100-100 GENERAL: The patient is awake, alert, and fully oriented, in no acute distress. EYES: PEERLA: EOMI; no scleral icterus . NECK: no JVD: no lymphadenopathy LUNGS: CTA B/L; no rales, rhonchi or wheezing HEART: Regular rate and rhythm, S1, S2 without murmur, rub or gallop. ABDOMEN: Soft, slight epigastric tenderness, nondistended, normoactive bowel sounds, no guarding, no rebound, no hepatosplenomegaly, no masses. EXTREMITIES: 2+ pulses, warm, well-perfused, no edema. PSYCH: Normal mood, normal affect. SKIN: Warm, dry, normal turgor, no rashes or lesions noted Laboratory Results - last 24 hr 08/17/18 08/18/18 08/18/18 07:49 05:35 05:35 WBC 9.4 RBC 2.41 L Hgb 7.2 L Hct 21.0 L D MCV 87.1 MCH 30.1 MCHC 34.6 RDW 17.3 H Plt Count 174.6 MPV 8.5 Manual Slide Review Platelet Comment Sodium Potassium Chloride Carbon Dioxide Anion Gap BUN Creatinine Est GFR (CKD-EPI)AfAm Est GFR (CKD-EPI)NonAf POC Glucometer Random Glucose Hemoglobin A1c % < 5.0 Calcium Phosphorus Magnesium Direct Bilirubin LD Total Triglycerides Cholesterol Total LDL Cholesterol HDL Cholesterol Blood Type A POSITIVE Antibody Screen Negative Crossmatch See Detail 08/18/18 08/18/18 08/18/18 12:20 12:29 19:40 WBC 9.4 9.0 RBC 2.36 L 2.59 L Hgb 7.0 L 7.8 L Hct 20.5 L 22.7 L MCV 86.9 87.7 MCH 29.8 30.0 MCHC 34.3 34.2 RDW 17.7 H 17.0 H Plt Count 240 D 148 D MPV 8.0 8.2 Manual Slide Review Reviewed Platelet Comment Adq Sodium Potassium Chloride Carbon Dioxide Anion Gap BUN Creatinine Est GFR (CKD-EPI)AfAm Est GFR (CKD-EPI)NonAf POC Glucometer 133 Random Glucose Hemoglobin A1c % Calcium Phosphorus Magnesium Direct Bilirubin LD Total Triglycerides Cholesterol Total LDL Cholesterol HDL Cholesterol Blood Type Antibody Screen Crossmatch 08/19/18 08/19/18 08/19/18 05:20 05:20 05:20 WBC 7.1 RBC 2.49 L Hgb 7.6 L Hct 21.5 L MCV 86.5 MCH 30.6 MCHC 35.4 RDW 16.8 H Plt Count MPV 7.5 Manual Slide Review Platelet Comment Sodium 141 Potassium 3.9 Chloride 108 H Carbon Dioxide 30 Anion Gap 3 L BUN 9.5 Creatinine 0.9 Est GFR (CKD-EPI)AfAm 105.72 Est GFR (CKD-EPI)NonAf 91.22 POC Glucometer Random Glucose 103 Hemoglobin A1c % Calcium 7.2 L Phosphorus 3.2 Magnesium 1.5 L Direct Bilirubin 0.2 LD Total 167 Triglycerides 87 Cholesterol 92 Total LDL Cholesterol 47 HDL Cholesterol 32 L Blood Type Antibody Screen Crossmatch Active Medications Generic Name Dose Route Start Last Admin Trade Name Freq PRN Reason Stop Dose Admin Chlorhexidine Gluconate 1 applic 08/17/18 22:00 08/18/18 21:51 Hibiclens For Decolonization - TP 1 applic HS NATALIIA Administration Lactated Ringer's 1,000 ml in 1,000 mls @ 125 mls/hr 08/17/18 11:00 08/18/18 15:58 Lactated Ringers Solution IV 125 mls/hr ASDIR NATALIIA Administration Magnesium Oxide 800 mg 08/19/18 07:44 Mag-Ox - PO 08/19/18 07:45 ONCE ONE Mupirocin 1 applic 08/17/18 22:00 08/18/18 21:51 Bactroban Ointment (For Decolonization) - NS 08/22/18 21:59 1 applic BID NATALIIA Administration Pantoprazole Sodium 40 mg 08/19/18 10:00 Protonix Iv IVPUSH DAILY NATALIIA Trazodone HCl 300 mg 08/17/18 22:00 08/18/18 21:51 Desyrel - PO 300 mg HS NATALIIA Administration ASSESSMENT/PLAN: 63 y/o male with PMH of HTN, anxiety, MDD, alcohol abuse presents to the ED with complaints of dark stools since Sunday #Neuro -no neurological issues at this juncture -patient is AO X3 #Cardio patient has history of hypertension -currently holding antihypertensives in light of GI bleed -will monitor hemodynamics #GI GI Bleed- rectal exam this AM shows blood mixed in with stool patient is 2/p 5 units of PRBCS : repeat Hgb this AM 7.6; will be receiving 1 more unit of blood endoscopy showing erythematous gastropathy but no overt bleeding (no ulcers or varices seen) -patient also found to have acute on chronic pancreatitis (given CT findings and elevated lipase); -RUQ U/S pending -Dr. Spangler on board -clear liquid diet -protonix IV daily -will need colonoscopy once pancreatitis has resolved as per Dr. Spangler -LR @125mls/hr #Heme patients most recent Hgb this AM was 7.6; not appropriately rising given the amount of units hes been transfused -will be receivign 1 more unit of PRBCS -post transfusion CBC -hemolysis w/u in place -if Hgb <7 altagracia transfuse # Psych patient not currently withdrawing from alcohol -will continue to monitor CIWA -c/w patients home trazodone F/E/N LR @125mls/hr monitor electrolytes clear diet DVT PPX: SCDs in light of GI bleed GI PPX: protonix daily dispo: transfer to telemetry Problem List - Problems (1) HTN (hypertension) Code(s): I10 - ESSENTIAL (PRIMARY) HYPERTENSION (2) Alcohol abuse Code(s): F10.10 - ALCOHOL ABUSE, UNCOMPLICATED (3) Depression Code(s): F32.9 - MAJOR DEPRESSIVE DISORDER, SINGLE EPISODE, UNSPECIFIED (4) Anemia Code(s): D64.9 - ANEMIA, UNSPECIFIED Qualifiers: Anemia type: unspecified type Qualified Code(s): D64.9 - Anemia, unspecified (5) GI bleed Code(s): K92.2 - GASTROINTESTINAL HEMORRHAGE, UNSPECIFIED Qualifiers: GI bleed type/associated pathology: unspecified gastrointestinal hemorrhage type Qualified Code(s): K92.2 - Gastrointestinal hemorrhage, unspecified Visit type - Emergency Visit Emergency Visit: Yes ED Registration Date: 08/17/18 Care time: The patient presented to the Emergency Department on the above date and was hospitalized for further evaluation of their emergent condition. - New Patient This patient is new to me today: No - Critical Care Critical Care patient: Yes Total Critical Care Time (in minutes): 35 Critical Care Statement: The care of this patient involved high complexity decision making to prevent further life threatening deterioration of the patient 's condition and/or to evaluate & treat vital organ system(s) failure or risk of failure.
[2018-08-19] MEDS: LACTATED RINGERS SOLUTION 1,000 ML/1,000 ML INFUS.BAG IV SCH ×3 (07:55→23:05)
[2018-08-19 08:13] LABS: PLATELET COUNT 159 K/MM3 (134-434)
[2018-08-19] MEDS: MUPIROCIN 2% TOPICAL OINTMENT FOR DECOLONIZATION NS SCH (09:02)
[2018-08-19] MEDS ORDERED: PANTOPRAZOLE SODIUM 40 MG VIAL IVPUSH SCH (10:00)
--- NOTE | 2018-08-19 10:21 | PN ---
Teaching Attending Note Name of Resident: Marjorie Carr ATTENDING PHYSICIAN STATEMENT I saw and evaluated the patient. I reviewed the resident's note and discussed the case with the resident. I agree with the resident's findings and plan as documented with exceptions below. SUBJECTIVE: Patient seen and examined, Feels better, no dsypnea or weakness. Abdominal pain improved, tolerating clears well. OBJECTIVE: Vital Signs Period Temp Pulse Resp BP Sys/Bryan Pulse Ox Last 24 Hr 98 F-98.8 F 79-98 14-21 108-144/57-85 100-100 Intake & Output 08/16/18 08/17/18 08/18/18 08/19/18 23:59 23:59 23:59 23:59 Intake Total 2900 3090 1000 Output Total 250 2550 1900 Balance 2650 540 -900 Weight 204 lb 195 lb 5 oz 195 lb General: sitting in bed, awake, pleasant, no acute distress Chest: CTAB, no rales or wheezing Abdomen:soft, minimal epigastric tenderness, ND, no voluntary or involuntary guarding or rigidity, pos bowel sounds Rectal: scant dark blood in amber-rectal area Extremities: no edema Psych: Awake, more co-operative, pleasant today Home Medications Medication Instructions Recorded Buspirone HCl 15 mg PO 08/17/18 Buspirone HCl [Buspar -] mg PO BID 08/17/18 Metformin HCl PO DAILY 08/17/18 Metoprolol Succinate [Toprol Xl] 50 mg PO 08/17/18 Nifedipine ER [Procardia XL -] 08/17/18 Trazodone HCl 300 mg PO HS 08/17/18 Active Medications Chlorhexidine Gluconate (Hibiclens For Decolonization -) 1 applic TP HS [facility] Last Admin: 08/18/18 21:51 Dose: 1 applic Lactated Ringer's (Lactated Ringers Solution) 1,000 ml in 1,000 mls @ 125 mls/ hr IV ASDIR [facility] Last Admin: 08/19/18 07:55 Dose: 125 mls/hr Mupirocin (Bactroban Ointment (For Decolonization) -) 1 applic NS BID [facility] Stop: 08/22/18 21:59 Last Admin: 08/19/18 09:02 Dose: 1 applic Pantoprazole Sodium (Protonix Iv) 40 mg IVPUSH DAILY [facility] Last Admin: 08/19/18 09:03 Dose: 40 mg Trazodone HCl (Desyrel -) 300 mg PO HS NATALIIA Last Admin: 08/18/18 21:51 Dose: 300 mg Laboratory Results - last 24 hr 08/17/18 08/18/18 08/18/18 07:49 05:35 12:20 WBC 9.4 RBC 2.36 L Hgb 7.0 L Hct 20.5 L MCV 86.9 MCH 29.8 MCHC 34.3 RDW 17.7 H Plt Count 174.6 240 D MPV 8.0 Manual Slide Review Platelet Comment Sodium Potassium Chloride Carbon Dioxide Anion Gap BUN Creatinine Est GFR (CKD-EPI)AfAm Est GFR (CKD-EPI)NonAf POC Glucometer Random Glucose Calcium Phosphorus Magnesium Direct Bilirubin LD Total Triglycerides Cholesterol Total LDL Cholesterol HDL Cholesterol Blood Type A POSITIVE Antibody Screen Negative Crossmatch See Detail 08/18/18 08/18/18 08/19/18 12:29 19:40 05:20 WBC 9.0 7.1 RBC 2.59 L 2.49 L Hgb 7.8 L 7.6 L Hct 22.7 L 21.5 L MCV 87.7 86.5 MCH 30.0 30.6 MCHC 34.2 35.4 RDW 17.0 H 16.8 H Plt Count 148 D 159 MPV 8.2 7.5 Manual Slide Review Reviewed Platelet Comment Adq Sodium Potassium Chloride Carbon Dioxide Anion Gap BUN Creatinine Est GFR (CKD-EPI)AfAm Est GFR (CKD-EPI)NonAf POC Glucometer 133 Random Glucose Calcium Phosphorus Magnesium Direct Bilirubin LD Total Triglycerides Cholesterol Total LDL Cholesterol HDL Cholesterol Blood Type Antibody Screen Crossmatch 08/19/18 08/19/18 05:20 05:20 WBC RBC Hgb Hct MCV MCH MCHC RDW Plt Count MPV Manual Slide Review Platelet Comment Sodium 141 Potassium 3.9 Chloride 108 H Carbon Dioxide 30 Anion Gap 3 L BUN 9.5 Creatinine 0.9 Est GFR (CKD-EPI)AfAm 105.72 Est GFR (CKD-EPI)NonAf 91.22 POC Glucometer Random Glucose 103 Calcium 7.2 L Phosphorus 3.2 Magnesium 1.5 L Direct Bilirubin 0.2 LD Total 167 Triglycerides 87 Cholesterol 92 Total LDL Cholesterol 47 HDL Cholesterol 32 L Blood Type Antibody Screen Crossmatch ASSESSMENT AND PLAN: 63 yom with PMHx of HTN, ETOH abuse, Anxiety, major depression admitted with acute gastrointestinal haemorrhage with hemodynamic instability. -Acute massive gastrointestinal haemorrhage,s/p EGD, r/o small bowel/colon etiology, ?AVM, vs ischemic/inflammatory vs diverticular -Acute severe blood loss anemia -Acute pancreatitis, suspect alcohol mediated, less likely GB etiology -h/o HTN -Anxiety -Major depression -h/o Suicidal ideation requiring inpatient psychiatric hospitalization Plan: s/p EGD with erythematous gastropathy but no active bleed. s/p 5 units PRBC, h/h noted. Transfuse 1 more unit today Still with ongoing dark BM and rectal exam with some blood though markedly improved. Hemodynamics stable. Closely monitor H/h. PO clears, likely needs colonoscopy, follow up with GI. Off protonix/Octreotide drips. Continue PPI BID. CT A/P noted. Supportive treatment. RUQ US. Suspect alcohol etiology for pancreatitis. Currently on nifedipine/metoprolol/buspiron/buproprion/metformin/trazodone at home, unsure of doses. Hold for now Confirm with [place] pharmacy. DVTPPX SCDs Dispo agree with transfer to telemetry. Plan discussed with patient in detail, all questions answered. Care co-ordinated with ICU Total critical care time spent 37 min.
--- NOTE | 2018-08-19 10:40 | PN ---
Physical Exam: SUBJECTIVE: Patient seen and examined resting in bed nad. afebrile hemodynamically stable. no acute events. no bm today. denies abd pain, b/b/d/c. no further bleeding episodes. tolerating clears OBJECTIVE: Vital Signs Period Temp Pulse Resp BP Sys/Bryan Pulse Ox Last 24 Hr 98 F-98.8 F 79-98 14-21 108-144/57-85 100-100 GENERAL: The patient is awake, alert, and fully oriented, in no acute distress. HEAD: Normal with no signs of trauma. EYES: PERRL, extraocular movements intact, sclera anicteric, conjunctiva clear. No ptosis. ENT: moist mucous membranes. NECK: supple. LUNGS: Breath sounds equal, clear to auscultation bilaterally HEART: Regular rate and rhythm, S1, S2 ABDOMEN: Soft, nontender, nondistended, normoactive bowel sounds, no guarding, no rebound, no hepatosplenomegaly, no masses. EXTREMITIES: no edema. NEUROLOGICAL: Cranial nerves II through XII grossly intact. Normal speech, gait not observed. PSYCH: Normal mood, normal affect. SKIN: Warm, dry Laboratory Results - last 24 hr 08/17/18 08/18/18 08/18/18 07:49 05:35 12:20 WBC 9.4 RBC 2.36 L Hgb 7.0 L Hct 20.5 L MCV 86.9 MCH 29.8 MCHC 34.3 RDW 17.7 H Plt Count 174.6 240 D MPV 8.0 Manual Slide Review Platelet Comment Sodium Potassium Chloride Carbon Dioxide Anion Gap BUN Creatinine Est GFR (CKD-EPI)AfAm Est GFR (CKD-EPI)NonAf POC Glucometer Random Glucose Calcium Phosphorus Magnesium Direct Bilirubin LD Total Triglycerides Cholesterol Total LDL Cholesterol HDL Cholesterol Blood Type A POSITIVE Antibody Screen Negative Crossmatch See Detail 08/18/18 08/18/18 08/19/18 12:29 19:40 05:20 WBC 9.0 7.1 RBC 2.59 L 2.49 L Hgb 7.8 L 7.6 L Hct 22.7 L 21.5 L MCV 87.7 86.5 MCH 30.0 30.6 MCHC 34.2 35.4 RDW 17.0 H 16.8 H Plt Count 148 D 159 MPV 8.2 7.5 Manual Slide Review Reviewed Platelet Comment Adq Sodium Potassium Chloride Carbon Dioxide Anion Gap BUN Creatinine Est GFR (CKD-EPI)AfAm Est GFR (CKD-EPI)NonAf POC Glucometer 133 Random Glucose Calcium Phosphorus Magnesium Direct Bilirubin LD Total Triglycerides Cholesterol Total LDL Cholesterol HDL Cholesterol Blood Type Antibody Screen Crossmatch 08/19/18 08/19/18 05:20 05:20 WBC RBC Hgb Hct MCV MCH MCHC RDW Plt Count MPV Manual Slide Review Platelet Comment Sodium 141 Potassium 3.9 Chloride 108 H Carbon Dioxide 30 Anion Gap 3 L BUN 9.5 Creatinine 0.9 Est GFR (CKD-EPI)AfAm 105.72 Est GFR (CKD-EPI)NonAf 91.22 POC Glucometer Random Glucose 103 Calcium 7.2 L Phosphorus 3.2 Magnesium 1.5 L Direct Bilirubin 0.2 LD Total 167 Triglycerides 87 Cholesterol 92 Total LDL Cholesterol 47 HDL Cholesterol 32 L Blood Type Antibody Screen Crossmatch Active Medications Generic Name Dose Route Start Last Admin Trade Name Freq PRN Reason Stop Dose Admin Chlorhexidine Gluconate 1 applic 08/17/18 22:00 08/18/18 21:51 Hibiclens For Decolonization - TP 1 applic HS NATALIIA Administration Lactated Ringer's 1,000 ml in 1,000 mls @ 125 mls/hr 08/17/18 11:00 08/19/18 07:55 Lactated Ringers Solution IV 125 mls/hr ASDIR NATALIIA Administration Mupirocin 1 applic 08/17/18 22:00 08/19/18 09:02 Bactroban Ointment (For Decolonization) - NS 08/22/18 21:59 1 applic BID NATALIIA Administration Pantoprazole Sodium 40 mg 08/19/18 10:00 08/19/18 09:03 Protonix Iv IVPUSH 40 mg DAILY NATALIIA Administration Trazodone HCl 300 mg 08/17/18 22:00 08/18/18 21:51 Desyrel - PO 300 mg HS NATALIIA Administration ASSESSMENT/PLAN: This is a 63 yo m with PMH of EtOH abuse, HTN, Anxiety, MDD, who was admitted with massive upper GIB and hemodynamic instability Massive GIB with hemodynamic instability Acute Blood loss anemia normocytic Acute on chronic pancreatitis EtOH abuse HTN anxiety MDD -s/p 5 u pRBCs hgb now 7.6, being transfused another unit, off PPI and octreotide gtt now on IV PPI 40 D -hemodynamically stable; if over bleeding resumes obtain CTA abd/pelvis -s/p EGD consistent with erythematous gastropathy w/o evidence of bleeding. -will need colonoscopy and maybe capsule endoscopy outpatient -Gi consult appreciated -ct ab appreciated, acute on chronic pancreatitis likely alcoholic rather than biliary, will f/u RUQ US -transfer tele Problem List - Problems (1) Alcohol abuse Code(s): F10.10 - ALCOHOL ABUSE, UNCOMPLICATED (2) Anemia Code(s): D64.9 - ANEMIA, UNSPECIFIED Qualifiers: Anemia type: unspecified type Qualified Code(s): D64.9 - Anemia, unspecified (3) GI bleed Code(s): K92.2 - GASTROINTESTINAL HEMORRHAGE, UNSPECIFIED Qualifiers: GI bleed type/associated pathology: unspecified gastrointestinal hemorrhage type Qualified Code(s): K92.2 - Gastrointestinal hemorrhage, unspecified (4) HTN (hypertension) Code(s): I10 - ESSENTIAL (PRIMARY) HYPERTENSION (5) Pancreatitis Code(s): K85.90 - ACUTE PANCREATITIS WITHOUT NECROSIS OR INFECTION, UNSP Visit type - Emergency Visit Emergency Visit: Yes ED Registration Date: 08/17/18 Care time: The patient presented to the Emergency Department on the above date and was hospitalized for further evaluation of their emergent condition. - New Patient This patient is new to me today: Yes Date on this admission: 08/19/18 - Critical Care Critical Care patient: Yes Total Critical Care Time (in minutes): 45 Critical Care Statement: The care of this patient involved high complexity decision making to prevent further life threatening deterioration of the patient 's condition and/or to evaluate & treat vital organ system(s) failure or risk of failure. - Discharge Referral Referred to [facility] No
--- NOTE | 2018-08-19 11:30 | PN ---
Teaching Attending Note Name of Resident: Cierra Hilton ATTENDING PHYSICIAN STATEMENT I saw and evaluated the patient. I reviewed the resident's note and discussed the case with the resident. I agree with the resident's findings and plan as documented. SUBJECTIVE: Pt seen and examined in the ICU. Still with some bloody bowel movements. No shortness of breath or chest pain. No further abdominal pain. OBJECTIVE: Vital Signs Period Temp Pulse Resp BP Sys/Bryan Pulse Ox Last 24 Hr 98 F-98.8 F 79-98 14-21 108-144/57-85 100-100 Intake & Output 08/16/18 08/17/18 08/18/18 08/19/18 23:59 23:59 23:59 23:59 Intake Total 2900 3090 1000 Output Total 250 2550 2250 Balance 2650 540 -1250 Weight 92.533 kg 88.592 kg 88.451 kg Gen: NAD at rest Heart: RRR Lung: decreased breath sounds at the bases Abd: soft, nontender Ext: no edema CBC, BMP 08/19/18 05:20 08/19/18 05:20 Active Medications Chlorhexidine Gluconate (Hibiclens For Decolonization -) 1 applic TP HS [facility] Last Admin: 08/18/18 21:51 Dose: 1 applic Lactated Ringer's (Lactated Ringers Solution) 1,000 ml in 1,000 mls @ 125 mls/ hr IV ASDIR NATALIIA Last Admin: 08/19/18 07:55 Dose: 125 mls/hr Mupirocin (Bactroban Ointment (For Decolonization) -) 1 applic NS BID NATALIIA Stop: 08/22/18 21:59 Last Admin: 08/19/18 09:02 Dose: 1 applic Pantoprazole Sodium (Protonix Iv) 40 mg IVPUSH DAILY NATALIIA Last Admin: 08/19/18 09:03 Dose: 40 mg Trazodone HCl (Desyrel -) 300 mg PO HS NATALIIA Last Admin: 08/18/18 21:51 Dose: 300 mg ASSESSMENT AND PLAN: GI Bleed Acute Blood Loss Anemia Alcohol Abuse Acute Pancreatitis Depression HTN - monitor H/H - transfuse as needed - protonix - IVF - PO per GI - ensure large bore peripheral access - will likely need colonoscopy - monitor for withdrawal symptoms - DVT prophylaxis - can monitor on floor
[2018-08-19] MEDS ORDERED: INSULIN (NOVOLOG) ASPART 100 UNITS/ML 10ML VIAL ONE (11:54)
[2018-08-19 12:33] VITALS: BMI 25.0
[2018-08-19 13:56] LABS: BILIRUBIN,DIRECT 0.2 mg/dL (0.0-0.2); BILIRUBIN,TOTAL 0.6 mg/dL (0.2-1); TOT PROT 4.3 g/dl (6.4-8.2)
--- NOTE | 2018-08-19 15:35 | PN ---
Progress Note (short form) - Note Progress Note: Patient seen and examined Two dark loose bm overnight and one during day today Denies abdominal pain, just feels gassy Just completed 1 unit PRBC Patient is moving to floor Vital Signs Temp 98.2 F 08/19/18 14:00 Pulse 86 08/19/18 14:00 Resp 16 08/19/18 14:00 BP 141/82 08/19/18 14:00 Pulse Ox 100 08/19/18 08:00 NAD soft, distended but nontender, +tympany CBC, BMP 08/19/18 05:20 08/19/18 05:20 Pancreatitis - improving - continue clear liquids GI bleed - EGD was negative. Follow up PM CBC, monitor bms, will likely plan for colonoscopy later this week
[2018-08-19 18:12] LABS: BASO % 0.3 % (0-2.0); EOS % 4.2 % (0-4.5); HEMATOCRIT 26.8 % (35.4-49); HEMOGLOBIN 9.1 GM/dL (11.7-16.9); LYMPH % 20.5 % (8-40); MCHC 34.1 g/dl (32.0-35.9); MEAN PLT VOLUME 8.1 fl (7.5-11.1); PLATELET COUNT 176 K/MM3 (134-434); RBC 3.04 M/mm3 (4.00-5.60); RDW 16.6 % (11.9-15.9); WHITE BLOOD COUNT 7.7 K/mm3 (4.0-10.0)
[2018-08-19] MEDS ORDERED: traZODone HCL 50 MG TABLET (FP) ONE ×2 (20:00→20:03)
[2018-08-19] MEDS ORDERED: CHLORHEXIDINE GLUCONATE 4% CLEANSER FOR DECOLONIZATION TP SCH (22:00)
[2018-08-19] MEDS ORDERED: MUPIROCIN 2% TOPICAL OINTMENT FOR DECOLONIZATION NS SCH (22:00)
[2018-08-19] MEDS: traZODone HCL 100 MG TABLET (FP) PO SCH (23:06)
[2018-08-20] MEDS: LACTATED RINGERS SOLUTION 1,000 ML/1,000 ML INFUS.BAG IV SCH ×2 (06:50→15:45)
[2018-08-20 07:42] LABS: BLOOD UREA NITROGEN 5.6 mg/dL (7-18); CALCIUM 7.2 mg/dL (8.5-10.1); CREATININE 0.9 mg/dL (0.55-1.3); MAGNESIUM 1.7 mg/dL (1.8-2.4); POTASSIUM 3.5 mmol/L (3.5-5.1)
[2018-08-20 07:54] LABS: BILIRUBIN,DIRECT 0.3 mg/dL (0.0-0.2); BILIRUBIN,TOTAL 0.6 mg/dL (0.2-1); TOT PROT 4.4 g/dl (6.4-8.2)
--- NOTE | 2018-08-20 08:12 | PN ---
Physical Exam: SUBJECTIVE: Patient seen and examined resting in bed nad. afebrile hemodynamically stable. no acute events. melena yesterday. denies abd pain, b/b/d/c. tolerating clears OBJECTIVE: Vital Signs Period Temp Pulse Resp BP Sys/Bryan Pulse Ox Last 24 Hr 97.9 F-99.2 F 63-97 14-20 115-141/44-84 97 GENERAL: The patient is awake, alert, and fully oriented, in no acute distress. HEAD: Normal with no signs of trauma. EYES: PERRL, extraocular movements intact, sclera anicteric, conjunctiva clear. No ptosis. ENT: moist mucous membranes. NECK: supple. LUNGS: Breath sounds equal, clear to auscultation bilaterally HEART: Regular rate and rhythm, S1, S2 ABDOMEN: Soft, nontender, nondistended, normoactive bowel sounds, no guarding, no rebound, no hepatosplenomegaly, no masses. EXTREMITIES: no edema. NEUROLOGICAL: Cranial nerves II through XII grossly intact. Normal speech, gait not observed. PSYCH: Normal mood, normal affect. SKIN: Warm, dry Laboratory Results - last 24 hr 08/17/18 08/19/18 08/19/18 07:49 05:20 05:20 WBC RBC Hgb Hct MCV MCH MCHC RDW Plt Count 159 MPV Absolute Neuts (auto) Neutrophils % Lymphocytes % Monocytes % Eosinophils % Basophils % Nucleated RBC % Haptoglobin Sodium Potassium Chloride Carbon Dioxide Anion Gap BUN Creatinine Est GFR (CKD-EPI)AfAm Est GFR (CKD-EPI)NonAf Random Glucose Calcium Phosphorus Magnesium Total Bilirubin 0.6 Direct Bilirubin 0.2 AST 17 ALT 11 L Alkaline Phosphatase 36 L Total Protein 4.3 L Albumin 2.0 L Triglycerides 87 Cholesterol 92 Total LDL Cholesterol 47 HDL Cholesterol 32 L Blood Type A POSITIVE Antibody Screen Negative Crossmatch See Detail 08/19/18 08/19/18 08/20/18 05:20 17:05 06:00 WBC 7.7 RBC 3.04 L Hgb 9.1 L Hct 26.8 L D MCV 88.0 MCH 30.0 MCHC 34.1 RDW 16.6 H Plt Count 176 MPV 8.1 Absolute Neuts (auto) 5.0 Neutrophils % 65.0 Lymphocytes % 20.5 Monocytes % 10.0 Eosinophils % 4.2 D Basophils % 0.3 Nucleated RBC % 0 Haptoglobin 46 Sodium 139 Potassium 3.5 Chloride 106 Carbon Dioxide 29 Anion Gap 4 L BUN 5.6 L Creatinine 0.9 Est GFR (CKD-EPI)AfAm 105.72 Est GFR (CKD-EPI)NonAf 91.22 Random Glucose 90 Calcium 7.2 L Phosphorus 4.0 Magnesium 1.7 L Total Bilirubin Direct Bilirubin AST ALT Alkaline Phosphatase Total Protein Albumin Triglycerides Cholesterol Total LDL Cholesterol HDL Cholesterol Blood Type Antibody Screen Crossmatch 08/20/18 06:00 WBC RBC Hgb Hct MCV MCH MCHC RDW Plt Count MPV Absolute Neuts (auto) Neutrophils % Lymphocytes % Monocytes % Eosinophils % Basophils % Nucleated RBC % Haptoglobin Sodium Potassium Chloride Carbon Dioxide Anion Gap BUN Creatinine Est GFR (CKD-EPI)AfAm Est GFR (CKD-EPI)NonAf Random Glucose Calcium Phosphorus Magnesium Total Bilirubin 0.6 Direct Bilirubin 0.3 H AST 17 ALT 12 L Alkaline Phosphatase 39 L Total Protein 4.4 L Albumin 2.0 L Triglycerides Cholesterol Total LDL Cholesterol HDL Cholesterol Blood Type Antibody Screen Crossmatch Active Medications Generic Name Dose Route Start Last Admin Trade Name Freq PRN Reason Stop Dose Admin Lactated Ringer's 1,000 ml in 1,000 mls @ 125 mls/hr 08/19/18 15:22 08/20/18 06:50 Lactated Ringers Solution IV 125 mls/hr ASDIR NATALIIA Administration Magnesium Sulfate 1 gm 08/20/18 08:06 Magnesium Sulfate IVPB 08/20/18 08:07 ONCE ONE Pantoprazole Sodium 40 mg 08/20/18 10:00 Protonix Iv IVPUSH DAILY NATALIIA Trazodone HCl 300 mg 08/19/18 22:00 08/19/18 23:06 Desyrel - PO 300 mg HS NATALIIA Administration ASSESSMENT/PLAN: This is a 63 yo m with PMH of EtOH abuse, HTN, Anxiety, MDD, who was admitted with massive upper GIB and hemodynamic instability Massive GIB with hemodynamic instability Acute Blood loss anemia normocytic Acute on chronic pancreatitis EtOH abuse HTN anxiety MDD -s/p 5 u pRBCs hgb 8.3 dropped from 9.1, on IV PPI 40 D -hemodynamically stable; if over bleeding resumes obtain CTA abd/pelvis -s/p EGD consistent with erythematous gastropathy w/o evidence of bleeding. -will need colonoscopy inpatient preferably soon given evidence of ongoing bleed and maybe capsule endoscopy outpatient -f/u GI recs -ct ab appreciated, acute on chronic pancreatitis likely alcoholic rather than biliary; abd US BCD 9 mm and fatty liver. -lipase trending down Problem List - Problems (1) Alcohol abuse Code(s): F10.10 - ALCOHOL ABUSE, UNCOMPLICATED (2) Anemia Code(s): D64.9 - ANEMIA, UNSPECIFIED Qualifiers: Anemia type: unspecified type Qualified Code(s): D64.9 - Anemia, unspecified (3) GI bleed Code(s): K92.2 - GASTROINTESTINAL HEMORRHAGE, UNSPECIFIED Qualifiers: GI bleed type/associated pathology: unspecified gastrointestinal hemorrhage type Qualified Code(s): K92.2 - Gastrointestinal hemorrhage, unspecified (4) HTN (hypertension) Code(s): I10 - ESSENTIAL (PRIMARY) HYPERTENSION (5) Pancreatitis Code(s): K85.90 - ACUTE PANCREATITIS WITHOUT NECROSIS OR INFECTION, UNSP Visit type - Emergency Visit Emergency Visit: Yes ED Registration Date: 08/17/18 Care time: The patient presented to the Emergency Department on the above date and was hospitalized for further evaluation of their emergent condition. - New Patient This patient is new to me today: No - Critical Care Critical Care patient: No - Discharge Referral Referred to [facility] Med P.C.: No
[2018-08-20 08:25] LABS: HEMATOCRIT 23.9 % (35.4-49); HEMOGLOBIN 8.3 GM/dL (11.7-16.9); MCH 30.4 pg (25.7-33.7); MCHC 34.8 g/dl (32.0-35.9); MEAN CELL VOLUME 87.3 fl (80-96); PLATELET COUNT 179 K/MM3 (134-434); RBC 2.73 M/mm3 (4.00-5.60); RDW 16.7 % (11.9-15.9); WHITE BLOOD COUNT 6.2 K/mm3 (4.0-10.0)
[2018-08-20] MEDS ORDERED: MAGNESIUM SULF 50% (8.12 MEQ/2 ML-1 GM VIAL) IVPB ONE (08:30)
[2018-08-20] MEDS ORDERED: PANTOPRAZOLE SODIUM 40 MG VIAL IVPUSH SCH (10:00)
[2018-08-20] MEDS ORDERED: PATIENT'S OWN MEDICATION (NON-FORMULARY) (Bupropion Hcl [Bupropion Hcl Er] 200 MG) PO SCH (10:45)
[2018-08-20] MEDS ORDERED: buPROPion HCL 100 MG TABLET PO SCH (10:45)
--- NOTE | 2018-08-20 10:55 | PN ---
Teaching Attending Note Name of Resident: Marjorie Carr ATTENDING PHYSICIAN STATEMENT I saw and evaluated the patient. I reviewed the resident's note and discussed the case with the resident. I agree with the resident's findings and plan as documented with exceptions below. SUBJECTIVE: Patient seen and examined, occasional dizziness but improved. Abdominal pain almost resolved, tolerating clears well. Overall unchanged "maroon" stools as discussed. Overall feels well. OBJECTIVE: Vital Signs Period Temp Pulse Resp BP Sys/Bryan Pulse Ox Last 24 Hr 97.9 F-99.2 F 63-97 16-20 115-141/44-82 97 Intake & Output 08/17/18 08/18/18 08/19/18 08/20/18 23:59 23:59 23:59 23:59 Intake Total 2900 3090 1710 625 Output Total 250 2550 3000 Balance 2650 540 -1290 625 Weight 204 lb 195 lb 5 oz 195 lb 203 lb 6.4 oz General: sitting in bed, pleasant, no acute distress Chest: CTAB, no rales or wheezing Abdomen:soft, minimal epigastric tenderness, no voluntary or involuntary guarding or rigidity, pos bowel sounds Extremities: no edema Home Medications Medication Instructions Recorded Buspirone HCl [Buspar -] 10 mg PO BID 08/17/18 Metformin HCl 500 mg PO DAILY 08/17/18 Metoprolol Succinate [Toprol Xl] 25 mg PO DAILY 08/17/18 Nifedipine ER [Procardia XL -] 30 mg PO DAILY 08/17/18 Trazodone HCl 300 mg PO HS 08/17/18 Bupropion HCl [Bupropion HCl ER] 200 mg PO BID 08/19/18 Omeprazole 40 mg PO DAILY 08/19/18 Active Medications Bupropion HCl (Wellbutrin -) 200 mg PO BID NATALIIA Buspirone HCl (Buspar -) 10 mg PO BID NATALIIA Lactated Ringer's (Lactated Ringers Solution) 1,000 ml in 1,000 mls @ 100 mls/ hr IV ASDIR NATALIIA Pantoprazole Sodium (Protonix Iv) 40 mg IVPUSH DAILY NATALIIA Last Admin: 08/20/18 10:10 Dose: 40 mg Trazodone HCl (Desyrel -) 300 mg PO HS [facility] Last Admin: 08/19/18 23:06 Dose: 300 mg Laboratory Results - last 24 hr 08/17/18 08/19/18 08/19/18 07:49 05:20 05:20 WBC RBC Hgb Hct MCV MCH MCHC RDW Plt Count MPV Absolute Neuts (auto) Neutrophils % Lymphocytes % Monocytes % Eosinophils % Basophils % Nucleated RBC % Haptoglobin 46 Sodium Potassium Chloride Carbon Dioxide Anion Gap BUN Creatinine Est GFR (CKD-EPI)AfAm Est GFR (CKD-EPI)NonAf Random Glucose Calcium Phosphorus Magnesium Ferritin Total Bilirubin 0.6 Direct Bilirubin 0.2 AST 17 ALT 11 L Alkaline Phosphatase 36 L Total Protein 4.3 L Albumin 2.0 L Triglycerides 87 Cholesterol 92 Total LDL Cholesterol 47 HDL Cholesterol 32 L Lipase Vitamin B12 Blood Type A POSITIVE Antibody Screen Negative Crossmatch See Detail 08/19/18 08/20/18 08/20/18 17:05 06:00 06:00 WBC 7.7 6.2 RBC 3.04 L 2.73 L Hgb 9.1 L 8.3 L Hct 26.8 L D 23.9 L MCV 88.0 87.3 MCH 30.0 30.4 MCHC 34.1 34.8 RDW 16.6 H 16.7 H Plt Count 176 179 MPV 8.1 8.0 Absolute Neuts (auto) 5.0 Neutrophils % 65.0 Lymphocytes % 20.5 Monocytes % 10.0 Eosinophils % 4.2 D Basophils % 0.3 Nucleated RBC % 0 Haptoglobin Sodium 139 Potassium 3.5 Chloride 106 Carbon Dioxide 29 Anion Gap 4 L BUN 5.6 L Creatinine 0.9 Est GFR (CKD-EPI)AfAm 105.72 Est GFR (CKD-EPI)NonAf 91.22 Random Glucose 90 Calcium 7.2 L Phosphorus 4.0 Magnesium 1.7 L Ferritin Total Bilirubin Direct Bilirubin AST ALT Alkaline Phosphatase Total Protein Albumin Triglycerides Cholesterol Total LDL Cholesterol HDL Cholesterol Lipase 1986 H Vitamin B12 Blood Type Antibody Screen Crossmatch 08/20/18 08/20/18 06:00 06:00 WBC RBC Hgb Hct MCV MCH MCHC RDW Plt Count MPV Absolute Neuts (auto) Neutrophils % Lymphocytes % Monocytes % Eosinophils % Basophils % Nucleated RBC % Haptoglobin Sodium Potassium Chloride Carbon Dioxide Anion Gap BUN Creatinine Est GFR (CKD-EPI)AfAm Est GFR (CKD-EPI)NonAf Random Glucose Calcium Phosphorus Magnesium Ferritin 134.2 Total Bilirubin 0.6 Direct Bilirubin 0.3 H AST 17 ALT 12 L Alkaline Phosphatase 39 L Total Protein 4.4 L Albumin 2.0 L Triglycerides Cholesterol Total LDL Cholesterol HDL Cholesterol Lipase Vitamin B12 908 Blood Type Antibody Screen Crossmatch ASSESSMENT AND PLAN: 63 yom with PMHx of HTN, ETOH abuse, Anxiety, major depression admitted with acute gastrointestinal haemorrhage with hemodynamic instability. -Acute massive gastrointestinal haemorrhage,s/p EGD, r/o small bowel/colon etiology, ?AVM, vs ischemic/inflammatory vs diverticular -Acute severe blood loss anemia -Acute pancreatitis, suspect alcohol mediated, less likely GB etiology -h/o HTN -Anxiety -Major depression -h/o Suicidal ideation requiring inpatient psychiatric hospitalization Plan: s/p EGD with erythematous gastropathy but no active bleed. s/p 6 units PRBC, h/h noted. Hb trending down. Tranfuse for Hb <8 Hemodynamics stable. Monitor h/h and hemodynamics closely. Follow up with GI for additional testing/colonoscopy. PO clears as amilcar. Off protonix/Octreotide drips. Continue PPI. CT A/P noted. Suspect alcohol etiology for pancreatitis. RUQ US noted. LFTs normal. MRCP likely outpatient once active bleed concerns resolved. Home meds reconciled. Resume buspirone/Buproprion/Trazodone. Hold anti-hypertensives. [facility] DVTPPX SCDs Dispo agree with transfer to telemetry. Plan discussed with patient in detail, all questions answered.
[2018-08-20] MEDS: buPROPion HCL 100 MG TABLET PO SCH ×2 (12:26→18:44)
[2018-08-20] MEDS: busPIRone HCL 10 MG TABLET (FP) PO SCH ×2 (12:26→23:04)
--- NOTE | 2018-08-20 13:56 | PN.GI ---
GI Progress Note Subjective: No overt bleeeding no abdominal pain - Objective Vital Signs: Vital Signs Temperature 98.9 F 08/20/18 10:00 Pulse Rate 83 08/20/18 10:00 Respiratory Rate 20 08/20/18 10:00 Blood Pressure 132/79 08/20/18 10:00 O2 Sat by Pulse Oximetry (%) 97 08/20/18 09:00 Constitutional: Calm Eyes: No: Sclera Icterus Cardiovascular: Yes: Regular Rate and Rhythm. No: Murmur Respiratory: Yes: CTA Bilaterally Gastrointestinal Inspection: No: Distention, Scars ...Auscultate: Yes: Normoactive Bowel Sounds ...Palpate: No: Hepatomegaly, Splenomegaly, Tenderness ...Percussion: No: Tympanitic ...Rectal Exam: Yes: Other (No external lesions, no masses, brown stool, no melena or gross blood.) Edema: No (No LE edema) Labs: CBC, BMP 08/20/18 06:00 08/20/18 06:00 INR, PTT INR 1.23 (0.83-1.09) H 08/17/18 07:49 Problem List - Problems (1) Pancreatitis Assessment/Plan: Clinically asymptomatic Tolerating clears Advised the need for complete alcohol cessation Code(s): K85.90 - ACUTE PANCREATITIS WITHOUT NECROSIS OR INFECTION, UNSP (2) GI bleed Assessment/Plan: No overt bleeding with stable hemodynamics despite drop in H/H Discussed colonoscopy for completion of evaluation. patient states that his last colonoscopy was 10 years ago and normal. Discussed potential risks of the procedure like but not limited to bleeding, perforation requiring surgery to repair, infection and sedation medication effects all of which could be potentially life threatening. he has agreed to the procedure. Consent obtained. For now: Clears NPO after midnight Bowel prep ordered AM labs Code(s): K92.2 - GASTROINTESTINAL HEMORRHAGE, UNSPECIFIED Qualifiers: GI bleed type/associated pathology: unspecified gastrointestinal hemorrhage type Qualified Code(s): K92.2 - Gastrointestinal hemorrhage, unspecified
[2018-08-20 14:44] LABS: HEMOGLOBIN 8.9 GM/dL (11.7-16.9); MCH 30.3 pg (25.7-33.7); MCHC 34.3 g/dl (32.0-35.9); MEAN CELL VOLUME 88.2 fl (80-96); MEAN PLT VOLUME 7.5 fl (7.5-11.1); PLATELET COUNT 184 K/MM3 (134-434); RBC 2.94 M/mm3 (4.00-5.60); RDW 17.2 % (11.9-15.9); WHITE BLOOD COUNT 6.4 K/mm3 (4.0-10.0)
[2018-08-20] MEDS ORDERED: BISACODYL 5 MG TABLET.DR (FP) PO ONE (15:00)
[2018-08-20] MEDS ORDERED: PEG 3350/NA SULF BICARB CL/KCL 4000 ML SOLN.RECON PO ONE (16:00)
[2018-08-20] MEDS ORDERED: traZODone HCL 50 MG TABLET (FP) ONE (22:41)
[2018-08-20] MEDS: traZODone HCL 100 MG TABLET (FP) PO SCH (23:06)
[2018-08-21 04:10] LABS: SERUM IRON SATURATION 10 % (15-55); TOTAL IRON BINDING CAPACITY 195 ug/dL (250-450)
[2018-08-21] MEDS ORDERED: PT OWN MED DRAWER 7, Y5N ONE ×2 (07:34→18:23)
--- NOTE | 2018-08-21 07:40 | PN ---
Physical Exam: SUBJECTIVE: Patient seen and examined resting in bed nad. afebrile hemodynamically stable. no acute events. brown stool yesterday. denies abd pain, b/b/d/c. npo awaiting colonoscopy OBJECTIVE: Vital Signs Period Temp Pulse Resp BP Sys/Bryan Pulse Ox Last 24 Hr 98.2 F-98.9 F 80-89 18-20 118-154/78-99 97-100 GENERAL: The patient is awake, alert, and fully oriented, in no acute distress. HEAD: Normal with no signs of trauma. EYES: PERRL, extraocular movements intact, sclera anicteric, conjunctiva clear. No ptosis. ENT: moist mucous membranes. NECK: supple. LUNGS: Breath sounds equal, clear to auscultation bilaterally HEART: Regular rate and rhythm, S1, S2 ABDOMEN: Soft, nontender, nondistended, normoactive bowel sounds, no guarding, no rebound, no hepatosplenomegaly, no masses. EXTREMITIES: no edema. NEUROLOGICAL: Cranial nerves II through XII grossly intact. Normal speech, gait not observed. PSYCH: Normal mood, normal affect. SKIN: Warm, dry Laboratory Results - last 24 hr 08/17/18 08/20/18 08/20/18 07:49 06:00 06:00 WBC 6.2 RBC 2.73 L Hgb 8.3 L Hct 23.9 L MCV 87.3 MCH 30.4 MCHC 34.8 RDW 16.7 H Plt Count 179 MPV 8.0 Sodium 139 Potassium 3.5 Chloride 106 Carbon Dioxide 29 Anion Gap 4 L BUN 5.6 L Creatinine 0.9 Est GFR (CKD-EPI)AfAm 105.72 Est GFR (CKD-EPI)NonAf 91.22 Random Glucose 90 Calcium 7.2 L Phosphorus 4.0 Magnesium 1.7 L Iron TIBC Iron Saturation Transferrin Ferritin Total Bilirubin Direct Bilirubin AST ALT Alkaline Phosphatase Total Protein Albumin Lipase 1986 H Vitamin B12 Blood Type A POSITIVE Antibody Screen Negative Crossmatch See Detail 08/20/18 08/20/18 08/20/18 06:00 06:00 06:00 WBC RBC Hgb Hct MCV MCH MCHC RDW Plt Count MPV Sodium Potassium Chloride Carbon Dioxide Anion Gap BUN Creatinine Est GFR (CKD-EPI)AfAm Est GFR (CKD-EPI)NonAf Random Glucose Calcium Phosphorus Magnesium Iron 19 L TIBC 195 L Iron Saturation 10 L Transferrin 142 L Ferritin 134.2 Total Bilirubin 0.6 Direct Bilirubin 0.3 H AST 17 ALT 12 L Alkaline Phosphatase 39 L Total Protein 4.4 L Albumin 2.0 L Lipase Vitamin B12 908 Blood Type Antibody Screen Crossmatch 08/20/18 14:20 WBC 6.4 RBC 2.94 L Hgb 8.9 L Hct 26.0 L MCV 88.2 MCH 30.3 MCHC 34.3 RDW 17.2 H Plt Count 184 MPV 7.5 Sodium Potassium Chloride Carbon Dioxide Anion Gap BUN Creatinine Est GFR (CKD-EPI)AfAm Est GFR (CKD-EPI)NonAf Random Glucose Calcium Phosphorus Magnesium Iron TIBC Iron Saturation Transferrin Ferritin Total Bilirubin Direct Bilirubin AST ALT Alkaline Phosphatase Total Protein Albumin Lipase Vitamin B12 Blood Type Antibody Screen Crossmatch Active Medications Generic Name Dose Route Start Last Admin Trade Name Freq PRN Reason Stop Dose Admin Bupropion HCl 200 mg 08/20/18 11:15 08/20/18 18:44 Wellbutrin - PO 200 mg DAILY@1000,1900 NATALIIA Administration Buspirone HCl 10 mg 08/20/18 10:45 08/20/18 23:04 Buspar - PO 10 mg BID NATALIIA Administration Lactated Ringer's 1,000 ml in 1,000 mls @ 100 mls/hr 08/20/18 10:35 08/20/18 15:45 Lactated Ringers Solution IV 100 mls/hr ASDIR NATALIIA Administration Pantoprazole Sodium 20 mg 08/21/18 10:00 Protonix - PO DAILY NATALIIA Trazodone HCl 300 mg 08/19/18 22:00 08/20/18 23:06 Desyrel - PO 300 mg HS NATALIIA Administration ASSESSMENT/PLAN: This is a 63 yo m with PMH of EtOH abuse, HTN, Anxiety, MDD, who was admitted with massive upper GIB and hemodynamic instability Massive GIB with hemodynamic instability Acute Blood loss anemia normocytic Acute on chronic pancreatitis EtOH abuse HTN anxiety MDD -hgb 8.5, on IV PPI 40 D -hemodynamically stable; if over bleeding resumes obtain CTA abd/pelvis -s/p EGD consistent with erythematous gastropathy w/o evidence of bleeding. -awaiting colonoscopy today -gi consult appreciated -ct ab appreciated, acute on chronic pancreatitis likely alcoholic rather than biliary; abd US BCD 9 mm and fatty liver. -lipase trending down Problem List - Problems (1) Alcohol abuse Code(s): F10.10 - ALCOHOL ABUSE, UNCOMPLICATED (2) Anemia Code(s): D64.9 - ANEMIA, UNSPECIFIED Qualifiers: Anemia type: unspecified type Qualified Code(s): D64.9 - Anemia, unspecified (3) GI bleed Code(s): K92.2 - GASTROINTESTINAL HEMORRHAGE, UNSPECIFIED Qualifiers: GI bleed type/associated pathology: unspecified gastrointestinal hemorrhage type Qualified Code(s): K92.2 - Gastrointestinal hemorrhage, unspecified (4) HTN (hypertension) Code(s): I10 - ESSENTIAL (PRIMARY) HYPERTENSION (5) Pancreatitis Code(s): K85.90 - ACUTE PANCREATITIS WITHOUT NECROSIS OR INFECTION, UNSP Visit type - Emergency Visit Emergency Visit: Yes ED Registration Date: 08/17/18 Care time: The patient presented to the Emergency Department on the above date and was hospitalized for further evaluation of their emergent condition. - New Patient This patient is new to me today: No - Critical Care Critical Care patient: No - Discharge Referral Referred to [facility] Med P.C.: No
[2018-08-21 07:50] LABS: INR 1.14 (0.83-1.09); PROTHROMBIN TIME (PATIENT) 13.5 SEC (9.7-13.0)
[2018-08-21 07:56] LABS: BASO % 0.9 % (0-2.0); EOS % 6.5 % (0-4.5); HEMATOCRIT 24.5 % (35.4-49); HEMOGLOBIN 8.5 GM/dL (11.7-16.9); LYMPH % 26.3 % (8-40); MCH 30.7 pg (25.7-33.7); MCHC 34.7 g/dl (32.0-35.9); MEAN CELL VOLUME 88.4 fl (80-96); MEAN PLT VOLUME 7.9 fl (7.5-11.1); NEUT % 54.3 % (42.8-82.8); PLATELET COUNT 192 K/MM3 (134-434); RBC 2.77 M/mm3 (4.00-5.60); RDW 17.3 % (11.9-15.9); WHITE BLOOD COUNT 5.2 K/mm3 (4.0-10.0)
[2018-08-21 09:13] LABS: ALBUMIN 2.2 g/dl (3.4-5.0); BILIRUBIN,TOTAL 0.6 mg/dL (0.2-1); BLOOD UREA NITROGEN 3.5 mg/dL (7-18); CALCIUM 7.5 mg/dL (8.5-10.1); CREATININE 0.9 mg/dL (0.55-1.3); MAGNESIUM 1.8 mg/dL (1.8-2.4); PHOSPHOROUS 3.6 mg/dL (2.5-4.9); POTASSIUM 3.6 mmol/L (3.5-5.1); TOT PROT 4.7 g/dl (6.4-8.2)
[2018-08-21] MEDS: buPROPion HCL 100 MG TABLET PO SCH ×2 (10:00→18:13)
[2018-08-21] MEDS: busPIRone HCL 10 MG TABLET (FP) PO SCH ×2 (10:00→21:17)
[2018-08-21] MEDS: LACTATED RINGERS SOLUTION 1,000 ML/1,000 ML INFUS.BAG IV SCH (12:00)
--- NOTE | 2018-08-21 13:45 | PN ---
Progress Note (short form) - Note Progress Note: Colonoscopy performed today revealing 2 diminutive transverse colon polyps removed, and sigmoid diverticulosis. There was some residual greenish stool mostly in right colon/cecum, large lesions not seen however smaller or flat lesions could have been missed. Otherwise unremarkable exam. No blood seen. Recommendations: -Monitor for further bleeding -Follow up pathology results -PPI daily -Repeat colonoscopy in 1 year for surveillance purposes pending path -If further bleeding may consider repeat endoscopy and possible push enteroscopy if dark stools/melena as otherwise no obvious findings on recent EGD or colon to explain source of bleed.
--- NOTE | 2018-08-21 14:01 | PN ---
Teaching Attending Note Name of Resident: Marjorie Carr ATTENDING PHYSICIAN STATEMENT I saw and evaluated the patient. I reviewed the resident's note and discussed the case with the resident. I agree with the resident's findings and plan as documented. SUBJECTIVE: Mr Atkinson is without complaint today. Denies cp, sob, n/v. OBJECTIVE: Last Vital Signs Temp Pulse Resp BP Pulse Ox 36.6 C 71 18 105/48 L 99 08/21/18 13:25 08/21/18 13:25 08/21/18 13:25 08/21/18 13:25 08/21/18 13:25 Gen: nad Pulm: ctab w/o w/r/r CV: rrr w/o m/r/g Abd: +bs, s/nt/nd Ext: no c/c/e CBC, BMP 08/21/18 05:59 08/21/18 05:59 ASSESSMENT AND PLAN: Problem List - Problems (1) GI bleed Assessment/Plan: -appreciate GI assistance -appears resolved, H/H stable -s/p EGD -colonoscopy today -follow up results -continue protonix Code(s): K92.2 - GASTROINTESTINAL HEMORRHAGE, UNSPECIFIED Qualifiers: GI bleed type/associated pathology: unspecified gastrointestinal hemorrhage type Qualified Code(s): K92.2 - Gastrointestinal hemorrhage, unspecified (2) Anemia Assessment/Plan: -s/p 4 units -currently stable -follow up colonoscopy results Code(s): D64.9 - ANEMIA, UNSPECIFIED Qualifiers: Anemia type: unspecified type Qualified Code(s): D64.9 - Anemia, unspecified (3) HTN (hypertension) Assessment/Plan: -controlled -monitor Code(s): I10 - ESSENTIAL (PRIMARY) HYPERTENSION (4) Alcohol abuse Assessment/Plan: -counseled cessation Code(s): F10.10 - ALCOHOL ABUSE, UNCOMPLICATED (5) Pancreatitis Assessment/Plan: -asymptomatic -advance diet as tolerated Code(s): K85.90 - ACUTE PANCREATITIS WITHOUT NECROSIS OR INFECTION, UNSP
[2018-08-21] MEDS: PANTOPRAZOLE 20 MG TABLET (FP) PO SCH (17:45)
[2018-08-21] MEDS: traZODone HCL 100 MG TABLET (FP) PO SCH (23:33)
[2018-08-22 08:51] LABS: BASO % 0.5 % (0-2.0); EOS % 5.8 % (0-4.5); HEMOGLOBIN 9.2 GM/dL (11.7-16.9); LYMPH % 24.2 % (8-40); MCH 30.3 pg (25.7-33.7); MEAN CELL VOLUME 89.2 fl (80-96); MEAN PLT VOLUME 7.7 fl (7.5-11.1); MONO % 11.9 % (3.8-10.2); NEUT % 57.6 % (42.8-82.8); RBC 3.03 M/mm3 (4.00-5.60); RDW 17.1 % (11.9-15.9); WHITE BLOOD COUNT 5.7 K/mm3 (4.0-10.0)
[2018-08-22 08:52] LABS: ALBUMIN 2.3 g/dl (3.4-5.0); BILIRUBIN,TOTAL 0.6 mg/dL (0.2-1); BLOOD UREA NITROGEN 3.5 mg/dL (7-18); CALCIUM 7.9 mg/dL (8.5-10.1); MAGNESIUM 1.6 mg/dL (1.8-2.4); PHOSPHOROUS 4.3 mg/dL (2.5-4.9); POTASSIUM 3.7 mmol/L (3.5-5.1); TOT PROT 5.1 g/dl (6.4-8.2)
[2018-08-22 09:03] LABS: PLATELET COUNT 250 K/MM3 (134-434)
[2018-08-22] MEDS ORDERED: PT OWN MED DRAWER 7, Y5N ONE ×2 (09:42→17:49)
[2018-08-22] MEDS: PANTOPRAZOLE 20 MG TABLET (FP) PO SCH (09:49)
[2018-08-22] MEDS: buPROPion HCL 100 MG TABLET PO SCH ×2 (09:50→18:02)
[2018-08-22] MEDS: busPIRone HCL 10 MG TABLET (FP) PO SCH (09:51)
[2018-08-22] MEDS: LACTATED RINGERS SOLUTION 1,000 ML/1,000 ML INFUS.BAG IV SCH (12:45)
--- NOTE | 2018-08-22 13:30 | PN ---
Teaching Attending Note Name of Resident: Marjorie Carr ATTENDING PHYSICIAN STATEMENT I saw and evaluated the patient. I reviewed the resident's note and discussed the case with the resident. I agree with the resident's findings and plan as documented. SUBJECTIVE: Mr Atkinson is without complaint today. No cp, sob, n/v. OBJECTIVE: Last Vital Signs Temp Pulse Resp BP Pulse Ox 36.9 C 77 18 130/78 99 08/22/18 08:38 08/22/18 08:38 08/22/18 09:00 08/22/18 08:38 08/22/18 09:00 Gen: nad Pulm: ctab w/o w/r/r CV: rrr w/o m/r/g Abd: +bs, s/nt/nd Ext: no c/c/e CBC, BMP 08/22/18 06:33 08/22/18 06:33 ASSESSMENT AND PLAN: (1) GI bleed Assessment/Plan: -s/p EGD and colonoscopy -no obvious signs of bleeding -H/H improving -diet advanced -? if can discharge today, will d/w GI -continue protonix Code(s): K92.2 - GASTROINTESTINAL HEMORRHAGE, UNSPECIFIED Qualifiers: GI bleed type/associated pathology: unspecified gastrointestinal hemorrhage type Qualified Code(s): K92.2 - Gastrointestinal hemorrhage, unspecified (2) Anemia Assessment/Plan: -s/p 4 units -currently stable Code(s): D64.9 - ANEMIA, UNSPECIFIED Qualifiers: Anemia type: unspecified type Qualified Code(s): D64.9 - Anemia, unspecified (3) HTN (hypertension) Assessment/Plan: -controlled -monitor Code(s): I10 - ESSENTIAL (PRIMARY) HYPERTENSION (4) Alcohol abuse Assessment/Plan: -counseled cessation Code(s): F10.10 - ALCOHOL ABUSE, UNCOMPLICATED (5) Pancreatitis Assessment/Plan: -asymptomatic -advance diet today to see if tolerates Code(s): K85.90 - ACUTE PANCREATITIS WITHOUT NECROSIS OR INFECTION, UNSP Problem List - Problems (1) GI bleed Code(s): K92.2 - GASTROINTESTINAL HEMORRHAGE, UNSPECIFIED Qualifiers: GI bleed type/associated pathology: unspecified gastrointestinal hemorrhage type Qualified Code(s): K92.2 - Gastrointestinal hemorrhage, unspecified (2) Anemia Code(s): D64.9 - ANEMIA, UNSPECIFIED Qualifiers: Anemia type: unspecified type Qualified Code(s): D64.9 - Anemia, unspecified (3) HTN (hypertension) Code(s): I10 - ESSENTIAL (PRIMARY) HYPERTENSION (4) Alcohol abuse Code(s): F10.10 - ALCOHOL ABUSE, UNCOMPLICATED (5) Pancreatitis Code(s): K85.90 - ACUTE PANCREATITIS WITHOUT NECROSIS OR INFECTION, UNSP
--- NOTE | 2018-08-22 14:38 | PN ---
Physical Exam: SUBJECTIVE: Patient seen and examined resting in bed nad. afebrile hemodynamically stable. no acute events. brown stool yesterday. denies abd pain, b/b/d/c. npo awaiting colonoscopy OBJECTIVE: Vital Signs Period Temp Pulse Resp BP Sys/Bryan Pulse Ox Last 24 Hr 98.1 F-98.7 F 77-95 18-20 123-140/74-83 98-99 GENERAL: The patient is awake, alert, and fully oriented, in no acute distress. HEAD: Normal with no signs of trauma. EYES: PERRL, extraocular movements intact, sclera anicteric, conjunctiva clear. No ptosis. ENT: moist mucous membranes. NECK: supple. LUNGS: Breath sounds equal, clear to auscultation bilaterally HEART: Regular rate and rhythm, S1, S2 ABDOMEN: Soft, nontender, nondistended, normoactive bowel sounds, no guarding, no rebound, no hepatosplenomegaly, no masses. EXTREMITIES: no edema. NEUROLOGICAL: Cranial nerves II through XII grossly intact. Normal speech, gait not observed. PSYCH: Normal mood, normal affect. SKIN: Warm, dry Laboratory Results - last 24 hr 08/17/18 08/20/18 08/22/18 07:49 06:00 06:33 WBC 5.7 RBC 3.03 L Hgb 9.2 L Hct 24.0 L 27.0 L MCV 89.2 MCH 30.3 MCHC 34.0 RDW 17.1 H Plt Count 250 D MPV 7.7 Absolute Neuts (auto) 3.3 Neutrophils % 57.6 Lymphocytes % 24.2 Monocytes % 11.9 H Eosinophils % 5.8 H Basophils % 0.5 Nucleated RBC % 0 Sodium Potassium Chloride Carbon Dioxide Anion Gap BUN Creatinine Est GFR (CKD-EPI)AfAm Est GFR (CKD-EPI)NonAf Random Glucose Calcium Phosphorus Magnesium Total Bilirubin AST ALT Alkaline Phosphatase Total Protein Albumin Folate 1280 Folate Hemolysate 307.3 Blood Type A POSITIVE Antibody Screen Negative Crossmatch See Detail 08/22/18 06:33 WBC RBC Hgb Hct MCV MCH MCHC RDW Plt Count MPV Absolute Neuts (auto) Neutrophils % Lymphocytes % Monocytes % Eosinophils % Basophils % Nucleated RBC % Sodium 141 Potassium 3.7 Chloride 104 Carbon Dioxide 30 Anion Gap 7 L BUN 3.5 L Creatinine 1.0 Est GFR (CKD-EPI)AfAm 93.08 Est GFR (CKD-EPI)NonAf 80.31 Random Glucose 81 Calcium 7.9 L Phosphorus 4.3 Magnesium 1.6 L Total Bilirubin 0.6 AST 19 ALT 14 Alkaline Phosphatase 48 Total Protein 5.1 L Albumin 2.3 L Folate Folate Hemolysate Blood Type Antibody Screen Crossmatch Active Medications Generic Name Dose Route Start Last Admin Trade Name Chavaq PRN Reason Stop Dose Admin Bupropion HCl 200 mg 08/20/18 11:15 08/22/18 09:50 Wellbutrin - PO 200 mg DAILY@1000,1900 NATALIIA Administration Buspirone HCl 10 mg 08/20/18 10:45 08/22/18 09:51 Buspar - PO 10 mg BID NATALIIA Administration Lactated Ringer's 1,000 ml in 1,000 mls @ 100 mls/hr 08/20/18 10:35 08/22/18 12:45 Lactated Ringers Solution IV 100 mls/hr ASDIR NATALIIA Administration Pantoprazole Sodium 20 mg 08/21/18 10:00 08/22/18 09:49 Protonix - PO 20 mg DAILY NATALIIA Administration Trazodone HCl 300 mg 08/19/18 22:00 08/21/18 23:33 Desyrel - PO 300 mg HS NATALIIA Administration ASSESSMENT/PLAN: This is a 63 yo m with PMH of EtOH abuse, HTN, Anxiety, MDD, who was admitted with massive upper GIB and hemodynamic instability Massive GIB with hemodynamic instability Acute Blood loss anemia normocytic Acute on chronic pancreatitis EtOH abuse HTN anxiety MDD -hgb 8.5, on IV PPI 40 D -hemodynamically stable; if over bleeding resumes obtain CTA abd/pelvis -s/p EGD consistent with erythematous gastropathy w/o evidence of bleeding. -awaiting colonoscopy today -gi consult appreciated -ct ab appreciated, acute on chronic pancreatitis likely alcoholic rather than biliary; abd US BCD 9 mm and fatty liver. -lipase trending down Problem List - Problems (1) Alcohol abuse Code(s): F10.10 - ALCOHOL ABUSE, UNCOMPLICATED (2) Anemia Code(s): D64.9 - ANEMIA, UNSPECIFIED Qualifiers: Anemia type: unspecified type Qualified Code(s): D64.9 - Anemia, unspecified (3) GI bleed Code(s): K92.2 - GASTROINTESTINAL HEMORRHAGE, UNSPECIFIED Qualifiers: GI bleed type/associated pathology: unspecified gastrointestinal hemorrhage type Qualified Code(s): K92.2 - Gastrointestinal hemorrhage, unspecified (4) HTN (hypertension) Code(s): I10 - ESSENTIAL (PRIMARY) HYPERTENSION (5) Pancreatitis Code(s): K85.90 - ACUTE PANCREATITIS WITHOUT NECROSIS OR INFECTION, UNSP
--- NOTE | 2018-08-22 17:14 | PN.GI ---
GI Progress Note Subjective: No acute events No overt bleeding No abdominal pain Colonoscopy revealed colon polyps, scattered sigmoid diverticula, retained adherent green liquid stool right colon. - Objective Vital Signs: Vital Signs Temperature 98.1 F 08/22/18 14:00 Pulse Rate 87 08/22/18 14:00 Respiratory Rate 20 08/22/18 14:00 Blood Pressure 129/83 08/22/18 14:00 O2 Sat by Pulse Oximetry (%) 99 08/22/18 09:00 Constitutional: Calm Eyes: No: Sclera Icterus Cardiovascular: Yes: Regular Rate and Rhythm Respiratory: Yes: CTA Bilaterally Gastrointestinal Inspection: No: Distention ...Auscultate: Yes: Normoactive Bowel Sounds ...Palpate: Yes: Soft. No: Hepatomegaly, Splenomegaly, Tenderness Edema: No (No LE edema) Neurological: Yes: Alert Labs: CBC, BMP 08/22/18 06:33 08/22/18 06:33 INR, PTT INR 1.14 (0.83-1.09) H 08/21/18 05:59 Hepatic Panel Total Bilirubin 0.6 mg/dL (0.2-1) 08/22/18 06:33 Direct Bilirubin 0.3 mg/dL (0.0-0.2) H 08/20/18 06:00 AST 19 U/L (15-37) 08/22/18 06:33 ALT 14 U/L (13-61) 08/22/18 06:33 Alkaline Phosphatase 48 U/L (45-117) 08/22/18 06:33 Albumin 2.3 g/dl (3.4-5.0) L 08/22/18 06:33 Problem List - Problems (1) Pancreatitis Assessment/Plan: No abdominal pain. Clinically improved Advised complete alcohol cessation Code(s): K85.90 - ACUTE PANCREATITIS WITHOUT NECROSIS OR INFECTION, UNSP (2) GI bleed Assessment/Plan: No overt bleeding. ? diverticular bleed, however only few tics noted in sigmoid on colonoscopy. Monitor for now. If rebleeding, bleeding scan or CTA (depending on briskness of bleed) could be of benefit to help localize source Gave Mr. Atkinson my card for outpatient follow-up, however [facility] Code(s): K92.2 - GASTROINTESTINAL HEMORRHAGE, UNSPECIFIED Qualifiers: GI bleed type/associated pathology: unspecified gastrointestinal hemorrhage type Qualified Code(s): K92.2 - Gastrointestinal hemorrhage, unspecified
--- NOTE | 2018-08-22 17:27 | DS ---
Physical Exam: SUBJECTIVE: Patient seen and examined resting in bed nad. afebrile hemodynamically stable. no acute events. brown stool yesterday. denies abd pain, b/b/d/c. pod1 s/p colonoscopy. tolerating regular diet OBJECTIVE: Vital Signs Period Temp Pulse Resp BP Sys/Bryan Pulse Ox Last 24 Hr 98.1 F-98.7 F 77-87 18-20 123-140/74-83 98-99 PHYSICAL EXAM GENERAL: The patient is awake, alert, and fully oriented, in no acute distress. HEAD: Normal with no signs of trauma. EYES: PERRL, extraocular movements intact, sclera anicteric, conjunctiva clear. No ptosis. ENT: moist mucous membranes. NECK: supple. LUNGS: Breath sounds equal, clear to auscultation bilaterally HEART: Regular rate and rhythm, S1, S2 ABDOMEN: Soft, nontender, nondistended, normoactive bowel sounds, no guarding, no rebound, no hepatosplenomegaly, no masses. EXTREMITIES: no edema. NEUROLOGICAL: Cranial nerves II through XII grossly intact. Normal speech, gait not observed. PSYCH: Normal mood, normal affect. SKIN: Warm, dry LABS Laboratory Results - last 24 hr 08/17/18 08/20/18 08/22/18 07:49 06:00 06:33 WBC 5.7 RBC 3.03 L Hgb 9.2 L Hct 24.0 L 27.0 L MCV 89.2 MCH 30.3 MCHC 34.0 RDW 17.1 H Plt Count 250 D MPV 7.7 Absolute Neuts (auto) 3.3 Neutrophils % 57.6 Lymphocytes % 24.2 Monocytes % 11.9 H Eosinophils % 5.8 H Basophils % 0.5 Nucleated RBC % 0 Sodium Potassium Chloride Carbon Dioxide Anion Gap BUN Creatinine Est GFR (CKD-EPI)AfAm Est GFR (CKD-EPI)NonAf Random Glucose Calcium Phosphorus Magnesium Total Bilirubin AST ALT Alkaline Phosphatase Total Protein Albumin Folate 1280 Folate Hemolysate 307.3 Blood Type A POSITIVE Antibody Screen Negative Crossmatch See Detail 08/22/18 06:33 WBC RBC Hgb Hct MCV MCH MCHC RDW Plt Count MPV Absolute Neuts (auto) Neutrophils % Lymphocytes % Monocytes % Eosinophils % Basophils % Nucleated RBC % Sodium 141 Potassium 3.7 Chloride 104 Carbon Dioxide 30 Anion Gap 7 L BUN 3.5 L Creatinine 1.0 Est GFR (CKD-EPI)AfAm 93.08 Est GFR (CKD-EPI)NonAf 80.31 Random Glucose 81 Calcium 7.9 L Phosphorus 4.3 Magnesium 1.6 L Total Bilirubin 0.6 AST 19 ALT 14 Alkaline Phosphatase 48 Total Protein 5.1 L Albumin 2.3 L Folate Folate Hemolysate Blood Type Antibody Screen Crossmatch HOSPITAL COURSE: Date of Admission:08/17/18 This is a 63 yo m with PMH of EtOH abuse, HTN, Anxiety, MDD, who was admitted with massive upper GIB and hemodynamic instability. was also found to have acute on chronic alcoholic pancreatitis. he underwent several transfusions in icu and was treated with octreotide and ppi gtt. when his hgb stabilized and he was no longer having melena, he underwent endoscopy and then colonoscopy. neither of the procedures revealed an obvious bleeding source. EGD consistent with erythematous gastropathy. Colonoscopy revealing 2 diminutive transverse colon polyps removed, and sigmoid diverticulosis. was discharged home on ppi bid and told to repeat colonoscopy in 1yr. if bleeding recurs should get capsule endoscopy. Was advised to quit EtOH/attend rehab. Date of Discharge: 08/22/18 Minutes to complete discharge: 35 Discharge Summary Reason For Visit: GI HEMORRAGE,ANEMIA Current Active Problems Alcohol abuse (Acute) Anemia (Acute) Depression (Acute) GI bleed (Acute) HTN (hypertension) (Acute) Pancreatitis (Acute) Condition: Stable - Instructions Diet, Activity, Other Instructions: You were admitted for gastrointestinal bleeding. You were transfused blood and your blood counts stabilized. you underwent endocopy and colonoscopy, howeer, no source of bleeding was found. please take Protonix 40 mg twice a day at home and watch your stool. If it turns black or bloody, or if you develop severe fatigue, chest pain, dizziness or weakness, immediately return to the hospital. Please follow up with Dr Iggy Bazan gastroenterology within 1 week Please follow up with your primary doctor within 1 week continue taking all other medications as before We urge you to quit alcohol! Please refer to a rehab center for cessation help. Referrals: Pillo Bazan DO [Staff Physician] - Disposition: HOME - Home Medications Comprehensive Discharge Medication List: Ambulatory Orders Metformin HCl 500 mg PO DAILY 08/17/18 RX: Buspirone HCl [Buspar -] 10 mg PO BID 08/17/18 RX: Metoprolol Succinate [Toprol Xl] 25 mg PO DAILY 08/17/18 RX: Nifedipine ER [Procardia XL -] 30 mg PO DAILY 08/17/18 RX: Trazodone HCl 300 mg PO HS 08/17/18 RX: Bupropion HCl [Bupropion HCl ER] 200 mg PO BID 08/19/18 RX: Pantoprazole Sodium 40 mg PO BID #60 tablet. 08/22/18 Problem List - Problems (1) Alcohol abuse Code(s): F10.10 - ALCOHOL ABUSE, UNCOMPLICATED (2) Anemia Code(s): D64.9 - ANEMIA, UNSPECIFIED Qualifiers: Anemia type: unspecified type Qualified Code(s): D64.9 - Anemia, unspecified (3) GI bleed Code(s): K92.2 - GASTROINTESTINAL HEMORRHAGE, UNSPECIFIED Qualifiers: GI bleed type/associated pathology: unspecified gastrointestinal hemorrhage type Qualified Code(s): K92.2 - Gastrointestinal hemorrhage, unspecified (4) HTN (hypertension) Code(s): I10 - ESSENTIAL (PRIMARY) HYPERTENSION (5) Pancreatitis Code(s): K85.90 - ACUTE PANCREATITIS WITHOUT NECROSIS OR INFECTION, UNSP This patient is new to me today: No Emergency Visit: Yes ED Registration Date: 08/17/18 Care time: The patient presented to the Emergency Department on the above date and was hospitalized for further evaluation of their emergent condition. Critical Care patient: No - Discharge Referral Referred to [facility] Med P.C.: No
[2018-08-22 19:28] VITALS: BP 133/80; PULSE 82; TEMP 98.2
--- NOTE | 2018-08-23 09:59 | PATH ---
Surgical Pathology Report Patient Name: KEL RAJAN Med. Rec. #: [id number] /Age/Gender: 1955 (Age: 63) / M Account: [id number] Location: 4 W TELEMETRY U Taken: 08/21/2018 Received: 08/22/2018 Reported: 08/23/2018 Physicians: Avis Lion MD Specimen(s) Received BX TRANSVERSE COLON POLYP Clinical History Anemia Postoperative diagnosis: Colon polyps, diverticulosis Final Diagnosis COLON, TRANSVERSE, SNARE POLYPECTOMY: TUBULAR ADENOMA. Electronically Signed Harvey Chairez M.D. Gross Description Received in formalin, labeled "transverse colon polyp" is a lazcano, irregular portion of soft tissue measuring 0.3 cm. in greatest dimension. The specimen is submitted in toto in one cassette. /08/22/201808/22/2018
== END 2018-08-23 07:41 | disposition home or self-care (01) | DRG 377 ==
LOC: JER 07:24 → JERBED 09:53 → JICU 12:52 → J4W 08-19 15:10
PROVIDERS: ADMIT Hospitalist; ATTEND Internal Medicine
PROC: 30233N1 Transfusion of Nonautologous Red Blood Cells into Peripheral Vein, Percutaneous Approach (ICD-10-PCS; 2018-08-17)
PROC: 0DBL8ZX Excision of Transverse Colon, Via Natural or Artificial Opening Endoscopic, Diagnostic (ICD-10-PCS; principal; 2018-08-21 11:30)
DX: K92.2 Gastrointestinal hemorrhage, unspecified (principal); K85.90 Acute pancreatitis without necrosis or infection, unspecified; D62 Acute posthemorrhagic anemia; I10 Essential (primary) hypertension; F41.9 Anxiety disorder, unspecified; D64.9 Anemia, unspecified; R00.0 Tachycardia, unspecified; F10.20 Alcohol dependence, uncomplicated; F32.9 Major depressive disorder, single episode, unspecified; K63.5 Polyp of colon; K57.30 Diverticulosis of large intestine without perforation or abscess without bleeding; K29.70 Gastritis, unspecified, without bleeding; K64.8 Other hemorrhoids
CPT/HCPCS: 36415; 36430; 36511; 71045-TC-FY; 74177-TC; 76705-TC; 80048; 80053; 80061; 80076; 82248; 82272; 82550; 82607; 82728; 82747; 82962; 83010; 83036; 83540; 83550; 83605; 83615; 83690; 83721; 83735; 84100; 84466; 84484; 85014; 85025; 85027; 85610; 86850; 86900; 86901; 86922; 88305-TC; 93005; 93010; 99283-25; P9038; P9058

== ENCOUNTER 2019-02-12 13:17 | Inpatient (IN) | payer OTHER ==
[2019-02-12] MEDS ORDERED: SODIUM CHLORIDE 1,000 ML IV STA (14:49)
--- NOTE | 2019-02-12 15:21 | PDOC ---
History of Present Illness <Ezequiel Spencer - Last Filed: 02/12/19 16:34> - General History Source: Patient - History of Present Illness Initial Comments: 02/12/19 15:06 Patient is a 63 year old male with PMH of GI bleeds, HTN, anxiety, depression, and alcohol abuse who presents with suicidal ideation and rectal bleeding for 1 week. Pt presents to the ER with one week of dark, maroon-colored stools and ideations that he wants to "let himself bleed out". He was admitted in August 2018 for a GI bleed, was transfused, and underwent colonoscopy/endoscopy with no findings of source. He has since been taking 40mg protonix BID and following up with GI/PCP at the [facility]. He reports that he has these episodes of blood in his stool after drinking large amounts of alcohol. He has been attempting to quit alcohol use and is currently in a rehab program. However, last week, on , pt's girlfriend broke up with him which prompted him to relapse and binge a large amount of alcohol. This caused one episode of hematemesis and one bowel movement streaked with bright red blood. Since Sunday , his daily BMs have been black and tarry (but no additional episodes of vomiting). He endorses associated lightheadedness with standing, LÓPEZ, and palpitations. Denies chest pain, abd pain, nausea, fevers, chills. Pt denies alcohol or drug use since his binge episode on , but has had worsening depression and suicidal ideations. He wants to "let himself bleed out so that he can be with his mother". Has not inflicted any self-injurious behavior. Denies homicidal ideation. Pt spoke with his director of social work (from the [facility]) this morning who urged him to come to the ER for medical evaluation, and then to be transferred to the [facility] psych to be treated for his depression. Allergies: NKDA PMH: as per HPI Surgical hx: denies 02/12/19 15:31 <Rebecca Dyer - Last Filed: 02/12/19 16:41> - General Chief Complaint: Rectal Bleed Stated Complaint: BLOOD IN STOOL Time Seen by Provider: 02/12/19 14:08 Past History <Ezequiel Spencer - Last Filed: 02/12/19 16:34> - Past Medical History Anemia: No Asthma: No Cancer: No Cardiac Disorders: Yes COPD: Yes Diabetes: Yes GI Disorders: Yes (gi bleed) HTN: Yes Psychiatric Problems: Yes (depression, alcohol abuse) - Surgical History Orthopedic Surgery: Yes (left hip replacement) - Psycho Social/Smoking Cessation Hx Smoking History: Never smoked Have you smoked in the past 12 months: No If you are a former smoker, when did you quit?: 1988 Information on smoking cessation initiated: No Hx Alcohol Use: Yes Drug/Substance Use Hx: No Hx Substance Use Treatment: Yes (quit 2007) <DenisseHua bardalesRebecca - Last Filed: 02/12/19 16:41> - Past Medical History Allergies/Adverse Reactions: Allergies Allergy/AdvReac Type Severity Reaction Status Date / Time lisinopril Allergy Verified 02/12/19 13:24 Home Medications: Ambulatory Orders Buspirone HCl [Buspar -] 10 mg PO BID 08/17/18 Metoprolol Succinate [Toprol Xl] 25 mg PO DAILY 08/17/18 Nifedipine ER [Procardia XL -] 30 mg PO DAILY 08/17/18 Trazodone HCl 300 mg PO HS 08/17/18 Bupropion HCl [Bupropion HCl ER] 200 mg PO BID 08/19/18 Pantoprazole Sodium 40 mg PO BID #60 tablet. 08/22/18 Review of Systems - Review of Systems Able to Perform ROS?: Yes Constitutional: No: Symptoms Reported, See HPI, Chills, Diaphoresis, Fever, Loss of Appetite, Malaise, Night Sweats, Weakness, Weight Stable, Unintentional Wgt. Loss, Unexplained wgt Loss, Other HEENTM: No: Symptoms Reported, See HPI, Eye Pain, Blurred Vision, Tearing, Recent change in vision, Double Vision, Cataracts, Ear Pain, Ocular Prothesis, Ear Discharge, Nose Pain, Nose Congestion, Tinnitus, Nose Bleeding, Hearing Loss , Throat Pain, Throat Swelling, Mouth Pain, Dental Problems, Difficulty Swallowing, Mouth Swelling, Other Respiratory: Yes: SOB with Exertion. No: Cough, Orthopnea, Productive cough, Hemoptysis Cardiac (ROS): Yes: Lightheadedness, Palpitations. No: Chest Pain, Edema ABD/GI: Yes: Blood Streaked Bowels, Rectal Bleeding, Vomiting, Tarry Stools : No: Symptoms Reported, See HPI, Burning, Dysuria, Discharge, Frequency, Flank Pain, Hematuria, Incontinence, Pain, Urgency, Testicular Mass, Testicular Swelling, Lesions, Testicular Pain, Other Neurological: No: Symptoms reported, See HPI, Headache, Numbness, Paresthesia, Pre-Existing Deficit, Seizure, Tingling, Tremors, Weakness, Unsteady Gait, Ataxia, Dizziness, Other Psychiatric: Yes: Anxiety, Depression, Frequent Crying, Emotional Problems <Rebecca Dyer - Last Filed: 02/12/19 16:41> *Physical Exam - Vital Signs Last Vital Signs Temp Pulse Resp BP Pulse Ox 98.3 F 119 H 19 109/49 L 99 02/12/19 13:19 02/12/19 13:19 02/12/19 13:19 02/12/19 13:19 02/12/19 13:19 <Ezequiel Spencer - Last Filed: 02/12/19 16:34> - Vital Signs Last Vital Signs Temp Pulse Resp BP Pulse Ox 98.3 F 119 H 19 109/49 L 99 02/12/19 13:19 02/12/19 13:19 02/12/19 13:19 02/12/19 13:19 02/12/19 13:19 - Physical Exam General Appearance: Yes: Nourished, Mild Distress HEENT: positive: Symmetrical, Pharynx Normal. negative: Pharyngeal Erythema, Tonsillar Exudate, Tonsillar Erythema Neck: positive: Normal Thyroid, Supple Respiratory/Chest: positive: Lungs Clear, Normal Breath Sounds. negative: Respiratory Distress, Accessory Muscle Use, Crackles, Rhonchi, Wheezing Cardiovascular: positive: S1, S2, Tachycardia. negative: Edema, JVD, Murmur Vascular Pulses: Dorsalis-Pedis (R): 2+, Doralis-Pedis (L): 2+ Gastrointestinal/Abdominal: positive: Normal Bowel Sounds, Tender Rectal Exam: positive: normal rectal tone, melena, heme positive stool (Maroon- colored stool on exam). negative: hemorrhoids Neurologic: positive: post doctoral fellow II-XII NML intact, Fully Oriented, Alert, Motor Strength 5/5. negative: Normal Mood/Affect <Rebecca Dyer - Last Filed: 02/12/19 16:41> ED Treatment Course - LABORATORY CBC & Chemistry Diagram: 02/12/19 15:10 02/12/19 15:10 - ADDITIONAL ORDERS Additional order review: Laboratory Results 02/12/19 02/12/19 02/12/19 15:10 15:10 15:10 PT with INR 11.90 INR 1.01 PTT (Actin FS) 24.5 L Sodium 140 Potassium 4.4 Chloride 107 Carbon Dioxide 26 Anion Gap 7 L BUN 15.7 Creatinine 1.4 H Est GFR (CKD-EPI)AfAm 61.97 Est GFR (CKD-EPI)NonAf 53.47 Random Glucose 120 H Calcium 8.0 L Total Bilirubin 0.2 AST 10 L ALT 15 Alkaline Phosphatase 29 L Total Protein 5.3 L Albumin 2.6 L Blood Type A POSITIVE Antibody Screen Negative Crossmatch See Detail 02/12/19 15:10 RBC 1.54 L MCV 84.6 MCHC 31.9 L RDW 21.7 H MPV 7.9 Neutrophils % 73.4 D Lymphocytes % 18.9 D Monocytes % 5.7 Eosinophils % 1.3 Basophils % 0.7 - Medications Given in the ED: ED Medications Discontinued Medications Generic Name Dose Route Start Last Admin Trade Name Freq PRN Reason Stop Dose Admin Sodium Chloride 1,000 mls @ 1,000 mls/hr 02/12/19 14:49 02/12/19 15:20 Normal Saline - IV 02/12/19 15:48 1,000 mls/hr ASDIR STA Administration <Ezequiel Spencer - Last Filed: 02/12/19 16:34> - LABORATORY CBC & Chemistry Diagram: 02/12/19 15:10 02/12/19 15:10 <Rebecca Dyer - Last Filed: 02/12/19 16:41> Medical Decision Making - Medical Decision Making 02/12/19 15:36 - Stool guiac - CBC, CMP, EKG - 1:1 obs as pt repeatedly states "I'm better off " 02/12/19 16:40 Hgb: 4.2 --> transfuse 2PRBC Will admit, ICU consultation <Rebecca Dyer - Last Filed: 02/12/19 16:41> Discharge - Discharge Information Problems reviewed: Yes - Admission Yes <Ezequiel Spencer - Last Filed: 02/12/19 16:34> - Discharge Information Problems reviewed: Yes - Admission Yes <Rebecca Dyer - Last Filed: 02/12/19 16:41> - Discharge Information Clinical Impression/Diagnosis: Lower GI bleed
--- NOTE | 2019-02-12 15:42 | EKG ---
Test Reason : Blood Pressure : / mmHG Vent. Rate : 096 BPM Atrial Rate : 096 BPM P-R Int : 176 ms QRS Dur : 076 ms QT Int : 364 ms P-R-T Axes : 056 031 047 degrees QTc Int : 459 ms NORMAL SINUS RHYTHM NORMAL ECG WHEN COMPARED WITH ECG OF 17-AUG-2018 07:55, NO SIGNIFICANT CHANGE WAS FOUND Confirmed by JOSH MATTHEWS MD ([id number]) on 02/12/2019 3:42:28 PM Referred By: Confirmed By:JOSH MATTHEWS MD
[2019-02-12 15:46] LABS: INR 1.01 (0.83-1.09); PROTHROMBIN TIME (PATIENT) 11.9 SEC (9.7-13.0)
[2019-02-12 15:48] LABS: BASO % 0.7 % (0-2.0); PLATELET COUNT 196 K/MM3 (134-434)
[2019-02-12 15:49] LABS: ACTIVATED PTT 24.5 SECONDS (25.2-36.5)
[2019-02-12 15:56] LABS: EOS % 1.3 % (0-4.5); LYMPH % 18.9 % (8-40); MCHC 31.9 g/dl (32.0-35.9); MEAN CELL VOLUME 84.6 fl (80-96); MEAN PLT VOLUME 7.9 fl (7.5-11.1); MONO % 5.7 % (3.8-10.2); NEUT % 73.4 % (42.8-82.8); RBC 1.54 M/mm3 (4.00-5.60); RDW 21.7 % (11.9-15.9); WHITE BLOOD COUNT 5.4 K/mm3 (4.0-10.0)
[2019-02-12 15:58] LABS: HEMOGLOBIN 4.2 GM/dL (11.7-16.9)
[2019-02-12 16:07] LABS: ALBUMIN 2.6 g/dl (3.4-5.0); BILIRUBIN,TOTAL 0.2 mg/dL (0.2-1); BLOOD UREA NITROGEN 15.7 mg/dL (7-18); CREATININE 1.4 mg/dL (0.55-1.3); POTASSIUM 4.4 mmol/L (3.5-5.1); TOT PROT 5.3 g/dl (6.4-8.2)
--- NOTE | 2019-02-12 16:16 | PDOC ---
Attending Attestation - Resident Resident Name: Rebecca Dyer - ED Attending Attestation I have performed the following: I have examined & evaluated the patient, The case was reviewed & discussed with the resident, I agree w/resident's findings & plan, Exceptions are as noted - HPI HPI: 02/12/19 16:13 Patient is a 63-year-old male with history of alcohol abuse, hypertension and previous GI bleeding presents with days of dark stools with associated abdominal pain. Patient recently started drinking again after a personal break- up. Patient denies hematemesis/fever/chills. - Physicial Exam PE: 02/12/19 16:14 Patient is awake and alert, well-nourished, tachycardic, in no distress Normocephalic, atraumatic PERRLA, EOMI, conjunctiva pale CTA RRR Abdomen soft, nontender, nondistended, ME: Maroon blood noted - Medical Decision Making 02/12/19 16:15 Patient 63-year-old male with history of hypertension, alcohol abuse and previous GI bleed with history of diverticulosis who presents with several days of rectal bleeding. Patient is mildly tachycardic. H&H is noted to be 4.2 and 15. I suspect recurrent diverticular bleeding. Will administer a bolus of normal saline 500 mL. Will transfuse 2 units of packed cells. Will admit to the ICU for serial credits and GI evaluation. Will consider CTA of abdomen pelvis to evaluate for the source of bleeding. 02/12/19 16:23 There is no stigmata of liver disease. Patient's platelets and INR noted to be within normal limits. Previous EGD revealed no evidence of esophageal varices. At this time, I do not believe that octreotide is indicated.
[2019-02-12 17:21] LABS: ANISOCYTOSIS 2+; MACROCYTOSIS 0; OVALOCYTE 1+; PLATELET ESTIMATE NORMAL; TEAR DROP CELLS 1+
--- NOTE | 2019-02-12 18:32 | CONSULT ---
Consultation: REQUESTING PROVIDER: CONSULT REQUEST: We have been asked to medically evaluate this patient for ICU admission due to GI bleed. HISTORY OF PRESENT ILLNESS: 63 y/o/m with PMHx of MDD, HTN, GI bleeds, diverticulitis, anxiety, alcohol abuse here for GI bleed for the last week. He states he first noticed that he was bleeding on 02/06 after he drank 2 pints of vodka. He does not usually drink but states he started to drink that day because his girlfriend broke up with him and he was upset. He did not come in sooner because he had suicidal ideations and wanted to "bleed out". His mother when she was 62 and he wanted to "join her". He has one BM per day and states all his BMs have been dark but he has not seen loreta blood. He has had a GI bleed in the past. He had a capsule endoscopy done 2 weeks ago at the [facility] which he states showed diverticulitis but no ulcers or bleeding. He denies chest pain, abd pain, headache, SOB, fever, chills, N/V/D, hemorrhoids, loss of consciousness. Patient became emotional and tearful during interview. Per ER, on rectal exam patient had normal rectal tone, no external hemorrhoids noted, and maroon colored stool noted on gloved hand. REVIEW OF SYSTEMS: As per HPI PHYSICAL EXAMINATION Vital Signs - 24 hr 02/12/19 02/12/19 02/12/19 13:19 15:20 15:55 Temperature 98.3 F Pulse Rate 119 H Pulse Rate [ 116 H 94 H Apical] Respiratory 19 22 H 22 H Rate Blood Pressure 109/49 L Blood Pressure 104/61 124/66 [Left Arm] O2 Sat by Pulse 99 99 97 Oximetry (%) GENERAL: Awake, alert, and fully oriented, exam limited as patient became emotional and tearful HEAD: Normal with no signs of trauma. EYES: cataracts bilaterally, PERRL EARS, NOSE, THROAT: dry mucous membranes. NECK: Normal range of motion, supple, trachea midline LUNGS: Breath sounds equal, clear to auscultation bilaterally. No wheezes, and no crackles. No accessory muscle use. HEART: RRR, murmur noted ABDOMEN: Soft, nontender, not distended, normoactive bowel sounds, no guarding, no rebound, no masses EXTREMITIES: 2+ pulses, warm, well-perfused. No calf tenderness. No peripheral edema. NEUROLOGICAL: Cranial nerves II-XII intact. Normal speech. Normal sensation throughout PSYCHIATRIC: Good eye contact. Tearful affect SKIN: Warm, dry Laboratory Results - last 24 hr 02/12/19 02/12/19 02/12/19 15:10 15:10 15:10 WBC 5.4 RBC 1.54 L Hgb 4.2 L* Hct 13.0 L MCV 84.6 MCH 27.0 D MCHC 31.9 L RDW 21.7 H Plt Count 196 D MPV 7.9 Absolute Neuts (auto) 4.0 Neutrophils % 73.4 D Lymphocytes % 18.9 D Monocytes % 5.7 Eosinophils % 1.3 Basophils % 0.7 Nucleated RBC % 0 Hypochromia 3+ Platelet Estimate Normal Polychromasia 1+ Poikilocytosis 1+ Anisocytosis 2+ Microcytosis 2+ Macrocytosis 0 Tear Drop Cells 1+ Ovalocytes 1+ PT with INR 11.90 INR 1.01 PTT (Actin FS) 24.5 L Sodium 140 Potassium 4.4 Chloride 107 Carbon Dioxide 26 Anion Gap 7 L BUN 15.7 Creatinine 1.4 H Est GFR (CKD-EPI)AfAm 61.97 Est GFR (CKD-EPI)NonAf 53.47 Random Glucose 120 H Calcium 8.0 L Total Bilirubin 0.2 AST 10 L ALT 15 Alkaline Phosphatase 29 L Total Protein 5.3 L Albumin 2.6 L Blood Type Antibody Screen Crossmatch 02/12/19 15:10 WBC RBC Hgb Hct MCV MCH MCHC RDW Plt Count MPV Absolute Neuts (auto) Neutrophils % Lymphocytes % Monocytes % Eosinophils % Basophils % Nucleated RBC % Hypochromia Platelet Estimate Polychromasia Poikilocytosis Anisocytosis Microcytosis Macrocytosis Tear Drop Cells Ovalocytes PT with INR INR PTT (Actin FS) Sodium Potassium Chloride Carbon Dioxide Anion Gap BUN Creatinine Est GFR (CKD-EPI)AfAm Est GFR (CKD-EPI)NonAf Random Glucose Calcium Total Bilirubin AST ALT Alkaline Phosphatase Total Protein Albumin Blood Type A POSITIVE Antibody Screen Negative Crossmatch See Detail ASSESSMENT/PLAN: 63 y/o/m with PMHx of MDD, HTN, GI bleeds, diverticulitis, anxiety, alcohol abuse here for GI bleed for the last week and suicidal ideations. Patient admitted to ICU for active GI bleed monitoring. #Neuro - AAOx3 - Suicidal ideations, Psychiatry consulted - 1:1 monitoring - Hx of MDD, continue home anti-depression medications as per primary team #Cardio - History of HTN - Continue home HTN meds per primary team #Pulm - maintain SpO2 >92% #GI - Hx of GI bleeds, capsule endoscopy done at [place] two weeks ago showing diverticulitis but no active bleeding - Active GI bleed for the last week - Hgb/Hct at 4.2/13 - 2 Units PRBC ordered, repeat CBC after transfusion. Transfuse as needed - GI consulted - Consider abd CTA to evaluate for bleeding #Renal - BUN/Cr 15.7/1.4 - Mildly elevated over previous visits, likely pre-renal due to anemia. Monitor #Prophylaxis - holding AC due to active bleeding - Protonix BID #FEN - monitor and replete lytes as needed - NPO - NS @75mls/hr #Disposition - ICU monitoring Visit type - Emergency Visit Emergency Visit: Yes ED Registration Date: 02/12/19 Care time: The patient presented to the Emergency Department on the above date and was hospitalized for further evaluation of their emergent condition. - New Patient This patient is new to me today: Yes Date on this admission: 02/12/19 - Critical Care Critical Care patient: Yes Total Critical Care Time (in minutes): 36 Critical Care Statement: The care of this patient involved high complexity decision making to prevent further life threatening deterioration of the patient 's condition and/or to evaluate & treat vital organ system(s) failure or risk of failure. ATTENDING PHYSICIAN STATEMENT I saw and evaluated the patient. I reviewed the resident's note and discussed the case with the resident. I agree with the resident's findings and plan as documented. SUBJECTIVE: OBJECTIVE: ASSESSMENT AND PLAN:
[2019-02-12] MEDS: SODIUM CHLORIDE 1,000 ML IV SCH ×2 (19:40→23:29)
--- NOTE | 2019-02-12 19:51 | HP ---
Admitting History and Physical - Primary Care Physician PCP: Jenna Wayne - Admission History of Present Illness: 63 year old male with PMH of GI bleeds, HTN, anxiety, depression, and alcohol abuse who presents with suicidal ideation and rectal bleeding for 1 week. Pt presents to the ER with one week of dark, maroon-colored stools and ideations that he wants to "let himself bleed out". He was admitted in August 2018 for a GI bleed, was transfused, and underwent colonoscopy/endoscopy with no findings of source. He has since been taking 40mg protonix BID and following up with GI/PCP at the [facility]. He reports that he has these episodes of blood in his stool after drinking large amounts of alcohol. He has been attempting to quit alcohol use and is currently in a rehab program. However, last week, on , pt's girlfriend broke up with him which prompted him to relapse and binge a large amount of alcohol. This caused one episode of hematemesis and one bowel movement streaked with bright red blood. Since Sunday, his daily BMs have been black and tarry (but no additional episodes of vomiting). He endorses associated lightheadedness with standing, LÓPEZ, and palpitations. Denies chest pain, abd pain, nausea, fevers, chills. - Smoking History Smoking history: Never smoked Have you smoked in the past 12 months: No If you are a former smoker, when did you quit?: 1988 - Alcohol/Substance Use Hx Alcohol Use: Yes Home Medications - Allergies Allergies/Adverse Reactions: Allergies Allergy/AdvReac Type Severity Reaction Status Date / Time lisinopril Allergy Verified 02/12/19 13:24 - Home Medications Home Medications: Ambulatory Orders Buspirone HCl [Buspar -] 10 mg PO BID 08/17/18 Metoprolol Succinate [Toprol Xl] 25 mg PO DAILY 08/17/18 Nifedipine ER [Procardia XL -] 30 mg PO DAILY 08/17/18 Trazodone HCl 300 mg PO HS 08/17/18 Bupropion HCl [Bupropion HCl ER] 200 mg PO BID 08/19/18 Pantoprazole Sodium 40 mg PO BID #60 tablet. 08/22/18 Physical Examination Vital Signs: Vital Signs Temperature 97.8 F 02/12/19 19:40 Pulse Rate 88 02/12/19 19:40 Respiratory Rate 20 02/12/19 19:40 Blood Pressure 127/76 02/12/19 19:40 O2 Sat by Pulse Oximetry (%) 100 02/12/19 19:40 Constitutional: Yes: No Distress HENT: Yes: Atraumatic Cardiovascular: Yes: Regular Rate and Rhythm Respiratory: Yes: CTA Bilaterally Gastrointestinal: Yes: Normal Bowel Sounds Extremities: Yes: WNL Neurological: Yes: Alert, Oriented Labs: CBC, BMP 02/12/19 15:10 02/12/19 15:10 Problem List - Problems (1) Lower GI bleed Assessment/Plan: transfuse 2 u prbc gi bleed h/o diverticular bleeding Code(s): K92.2 - GASTROINTESTINAL HEMORRHAGE, UNSPECIFIED (2) Alcohol abuse Code(s): F10.10 - ALCOHOL ABUSE, UNCOMPLICATED (3) Anemia Assessment/Plan: s/p prbc Code(s): D64.9 - ANEMIA, UNSPECIFIED Qualifiers: Anemia type: unspecified type Qualified Code(s): D64.9 - Anemia, unspecified (4) HTN (hypertension) Code(s): I10 - ESSENTIAL (PRIMARY) HYPERTENSION (5) Depression Assessment/Plan: on 1:1 psych eval Code(s): F32.9 - MAJOR DEPRESSIVE DISORDER, SINGLE EPISODE, UNSPECIFIED Assessment/Plan Laboratory Tests 02/12/19 02/12/19 02/12/19 15:10 15:10 15:10 WBC 5.4 RBC 1.54 L Hgb 4.2 L* Hct 13.0 L MCV 84.6 MCH 27.0 D MCHC 31.9 L RDW 21.7 H Plt Count 196 D MPV 7.9 Absolute Neuts (auto) 4.0 Neutrophils % 73.4 D Lymphocytes % 18.9 D Monocytes % 5.7 Eosinophils % 1.3 Basophils % 0.7 Nucleated RBC % 0 Hypochromia 3+ Platelet Estimate Normal Polychromasia 1+ Poikilocytosis 1+ Anisocytosis 2+ Microcytosis 2+ Macrocytosis 0 Tear Drop Cells 1+ Ovalocytes 1+ PT with INR 11.90 INR 1.01 PTT (Actin FS) 24.5 L Sodium 140 Potassium 4.4 Chloride 107 Carbon Dioxide 26 Anion Gap 7 L BUN 15.7 Creatinine 1.4 H Est GFR (CKD-EPI)AfAm 61.97 Est GFR (CKD-EPI)NonAf 53.47 Random Glucose 120 H Calcium 8.0 L Total Bilirubin 0.2 AST 10 L ALT 15 Alkaline Phosphatase 29 L Total Protein 5.3 L Albumin 2.6 L Blood Type Antibody Screen Crossmatch 02/12/19 15:10 WBC RBC Hgb Hct MCV MCH MCHC RDW Plt Count MPV Absolute Neuts (auto) Neutrophils % Lymphocytes % Monocytes % Eosinophils % Basophils % Nucleated RBC % Hypochromia Platelet Estimate Polychromasia Poikilocytosis Anisocytosis Microcytosis Macrocytosis Tear Drop Cells Ovalocytes PT with INR INR PTT (Actin FS) Sodium Potassium Chloride Carbon Dioxide Anion Gap BUN Creatinine Est GFR (CKD-EPI)AfAm Est GFR (CKD-EPI)NonAf Random Glucose Calcium Total Bilirubin AST ALT Alkaline Phosphatase Total Protein Albumin Blood Type A POSITIVE Antibody Screen Negative Crossmatch See Detail Active Medications Generic Name Dose Route Start Last Admin Trade Name Freq PRN Reason Stop Dose Admin Sodium Chloride 1,000 mls @ 75 mls/hr 02/12/19 18:30 Normal Saline - IV ASDIR NATALIIA Pantoprazole Sodium 40 mg 02/12/19 22:00 Protonix Iv IVPUSH BID NATALIIA Active Medications Generic Name Dose Route Start Last Admin Trade Name Freq PRN Reason Stop Dose Admin Sodium Chloride 1,000 mls @ 75 mls/hr 02/12/19 18:30 02/12/19 19:40 Normal Saline - IV 75 mls/hr ASDIR NATALIIA Administration Pantoprazole Sodium 40 mg 02/12/19 22:00 Protonix Iv IVPUSH BID NATALIIA cc time 60 min
[2019-02-12 22:37] VITALS: BMI 29.2
[2019-02-12] MEDS ORDERED: traZODone HCL 100 MG TABLET (FP) PO ONE (23:17)
[2019-02-12] MEDS: PANTOPRAZOLE SODIUM 40 MG VIAL IVPUSH SCH (23:29)
[2019-02-12] MEDS ORDERED: traZODone HCL 50 MG TABLET (FP) ONE (23:57)
[2019-02-13 02:04] LABS: HEMATOCRIT 17.9 % (35.4-49); MCH 27.6 pg (25.7-33.7); MCHC 33.3 g/dl (32.0-35.9); MEAN CELL VOLUME 82.9 fl (80-96); MEAN PLT VOLUME 7.8 fl (7.5-11.1); PLATELET COUNT 173 K/MM3 (134-434); RBC 2.15 M/mm3 (4.00-5.60); RDW 19.2 % (11.9-15.9); WHITE BLOOD COUNT 6.1 K/mm3 (4.0-10.0)
[2019-02-13 02:08] LABS: HEMOGLOBIN 5.9 GM/dL (11.7-16.9)
--- NOTE | 2019-02-13 07:59 | PN ---
Physical Exam: SUBJECTIVE: Patient seen and examined on AM ICU rounds. Patient alert and oriented, occasionally walking around his room, talkative. Hgb increasing appropriately with PRBC administration. Patient denies dizziness, SOB, CP, palpitations. OBJECTIVE: Vital Signs Period Temp Pulse Resp BP Sys/Bryan Pulse Ox Last 24 Hr 97.8 F-98.6 F 78-119 16-24 104-152/49-85 97-100 GENERAL: Awake, alert, and fully oriented, exam limited as patient became emotional and tearful. HEENT: Normal with no signs of trauma, cataracts bilaterally, PERRL, dry mucous membranes, trachea midline. LUNGS: Breath sounds equal, clear to auscultation bilaterally. No wheezes, and no crackles. No accessory muscle use. HEART: RRR, murmur noted. ABDOMEN: Soft, nontender, not distended, no guarding, no rebound, no masses. EXTREMITIES: 2+ pulses, warm, well-perfused. No calf tenderness. No peripheral edema. NEUROLOGICAL: Cranial nerves II-XII grossly intact. Normal speech. Normal sensation throughout. PSYCHIATRIC: Good eye contact, cooperative, tearful affect. SKIN: Warm, dry, no rashes noted. Laboratory Results - last 24 hr 02/12/19 02/12/19 02/12/19 15:10 15:10 15:10 WBC 5.4 RBC 1.54 L Hgb 4.2 L* Hct 13.0 L MCV 84.6 MCH 27.0 D MCHC 31.9 L RDW 21.7 H Plt Count 196 D MPV 7.9 Absolute Neuts (auto) 4.0 Neutrophils % 73.4 D Lymphocytes % 18.9 D Monocytes % 5.7 Eosinophils % 1.3 Basophils % 0.7 Nucleated RBC % 0 Hypochromia 3+ Platelet Estimate Normal Polychromasia 1+ Poikilocytosis 1+ Anisocytosis 2+ Microcytosis 2+ Macrocytosis 0 Tear Drop Cells 1+ Ovalocytes 1+ PT with INR 11.90 INR 1.01 PTT (Actin FS) 24.5 L Sodium 140 Potassium 4.4 Chloride 107 Carbon Dioxide 26 Anion Gap 7 L BUN 15.7 Creatinine 1.4 H Est GFR (CKD-EPI)AfAm 61.97 Est GFR (CKD-EPI)NonAf 53.47 Random Glucose 120 H Calcium 8.0 L Total Bilirubin 0.2 AST 10 L ALT 15 Alkaline Phosphatase 29 L Total Protein 5.3 L Albumin 2.6 L Blood Type Antibody Screen Crossmatch 02/12/19 02/13/19 15:10 01:10 WBC 6.1 RBC 2.15 L Hgb 5.9 L* Hct 17.9 L D MCV 82.9 MCH 27.6 MCHC 33.3 RDW 19.2 H Plt Count 173 MPV 7.8 Absolute Neuts (auto) Neutrophils % Lymphocytes % Monocytes % Eosinophils % Basophils % Nucleated RBC % Hypochromia Platelet Estimate Polychromasia Poikilocytosis Anisocytosis Microcytosis Macrocytosis Tear Drop Cells Ovalocytes PT with INR INR PTT (Actin FS) Sodium Potassium Chloride Carbon Dioxide Anion Gap BUN Creatinine Est GFR (CKD-EPI)AfAm Est GFR (CKD-EPI)NonAf Random Glucose Calcium Total Bilirubin AST ALT Alkaline Phosphatase Total Protein Albumin Blood Type A POSITIVE Antibody Screen Negative Crossmatch See Detail Active Medications Generic Name Dose Route Start Last Admin Trade Name Freq PRN Reason Stop Dose Admin Sodium Chloride 1,000 mls @ 75 mls/hr 02/12/19 18:30 02/12/19 23:29 Normal Saline - IV 75 mls/hr ASDIR NATALIIA Administration Pantoprazole Sodium 40 mg 02/12/19 22:00 02/12/19 23:29 Protonix Iv IVPUSH 40 mg BID NATALIIA Administration ASSESSMENT/PLAN: 63yo M PMH MDD, HTN, GI bleeds, diverticulitis, anxiety, alcohol abuse here for GI bleed for the last week and suicidal ideations. Patient admitted to ICU for active GI bleed monitoring. #Neuro - AAOx3 - Suicidal ideations, Psychiatry consulted - 1:1 monitoring - Hx of MDD, continue home anti-depression medications as per primary team #Cardio - History of HTN - Continue home HTN meds per primary team #Pulm - Maintain SpO2 >92% #GI - Hx of GI bleeds, capsule endoscopy done at [place] two weeks ago showing diverticulitis but no active bleeding, records requested - Active GI bleed for the last week - Hgb/Hct at 4.2/13 - 2 Units PRBC ordered, repeat CBC after transfusion. Transfuse as needed - Appreciate GI consultation - Consider abd CTA to evaluate for bleeding - Octreotide drip started #Renal - BUN/Cr 15.7/1.4 - Mildly elevated over previous visits, likely pre-renal due to anemia. Monitor #Prophylaxis - holding AC due to active bleeding - Protonix BID #FEN - Monitor and replete lytes as needed - NPO - NS @75mls/hr #Disposition - ICU monitoring Visit type - Emergency Visit Emergency Visit: Yes ED Registration Date: 02/12/19 Care time: The patient presented to the Emergency Department on the above date and was hospitalized for further evaluation of their emergent condition. - New Patient This patient is new to me today: Yes Date on this admission: 02/13/19 - Critical Care Critical Care patient: Yes Total Critical Care Time (in minutes): 36 Critical Care Statement: The care of this patient involved high complexity decision making to prevent further life threatening deterioration of the patient 's condition and/or to evaluate & treat vital organ system(s) failure or risk of failure. ATTENDING PHYSICIAN STATEMENT I saw and evaluated the patient. I reviewed the resident's note and discussed the case with the resident. I agree with the resident's findings and plan as documented. SUBJECTIVE: OBJECTIVE: ASSESSMENT AND PLAN:
[2019-02-13] MEDS: PANTOPRAZOLE SODIUM 40 MG VIAL IVPUSH SCH (09:58)
[2019-02-13] MEDS: SODIUM CHLORIDE 1,000 ML IV SCH (09:58)
--- NOTE | 2019-02-13 10:41 | PN ---
Progress Note (short form) - Note Progress Note: patient seen and examined. Full consult to follow. Patient currently refusing EGD/Enteroscopy. Alludes to being told of transfer to [facility]?
--- NOTE | 2019-02-13 11:36 | CON.GI ---
Consult Consult Specialty:: GI Referred by:: GI bleed Reason for Consultation:: Anemia, melena - History of Present Illness Chief Complaint: Weakness, melena History of Present Illness: 63M admitted through [facility] for evaluation of weakness. Explains that he starting binge drinking alcohol because his girlfriend broke up with him around thanksgiving. he has been having dark bowel movements since. He was evaluated at [facility] 08/28 by GI for anemia. He underwent EGD (gastritis) and colonoscopy ( diverticulosis in sigmoid, two colon polyps). he alludes to having subsequent EGD/Colonoscopy at the [facility] where he follows with a copywriter. He also alludes to having had a capsule endoscopy that did not reveal a source of bleeding. There has been no active bleeding since admission. He denies abdominal pain. He is refusing further GI work-up. He explains that [facility] and that they were ? expecting him to be transferred there. - Past Medical History Cardio/Vascular: Yes: HTN Gastrointestinal: Yes: Diverticulosis, Other (Tubular adenomas x 2 08/28) Psych: Yes: Addictions (ETOH abuse), Anxiety, Depression - Alcohol/Substance Use Hx Alcohol Use: Yes - Smoking History Smoking history: Former smoker Have you smoked in the past 12 months: No If you are a former smoker, when did you quit?: 1988 - Social History Usual Living Arrangement: Alone Place of : [facility] History of Recent Travel: No Home Medications - Allergies Allergies/Adverse Reactions: Allergies Allergy/AdvReac Type Severity Reaction Status Date / Time lisinopril Allergy Verified 02/12/19 13:24 - Home Medications Home Medications: Ambulatory Orders Buspirone HCl [Buspar -] 10 mg PO BID 08/17/18 Metoprolol Succinate [Toprol Xl] 25 mg PO DAILY 08/17/18 Nifedipine ER [Procardia XL -] 30 mg PO DAILY 08/17/18 Trazodone HCl 300 mg PO HS 08/17/18 Bupropion HCl [Bupropion HCl ER] 200 mg PO BID 08/19/18 Pantoprazole Sodium 40 mg PO BID #60 tablet. 08/22/18 Family Medical History Other Family History: No family history of colorectal cancer or other GI malignancy Review of Systems - Review of Systems Constitutional: reports: Weakness. denies: Chills Cardiovascular: denies: Chest Pain Respiratory: denies: Cough Gastrointestinal: reports: Melena, Rectal Bleeding. denies: Abdominal Pain, Diarrhea Physical Exam-GI Vital Signs: Vital Signs Temperature 97.8 F 02/13/19 07:39 Pulse Rate 84 02/13/19 09:40 Respiratory Rate 18 02/13/19 09:40 Blood Pressure 141/80 02/13/19 09:40 O2 Sat by Pulse Oximetry (%) 100 02/12/19 22:22 Constitutional: Yes: Calm Eyes: No: Sclera Icterus Cardiovascular: Yes: Regular Rate and Rhythm. No: Murmur Respiratory: Yes: CTA Bilaterally Gastrointestinal Inspection: No: Distention, Scars ...Auscultate: Yes: Normoactive Bowel Sounds ...Palpate: Yes: Soft. No: Hepatomegaly, Splenomegaly ...Rectal Exam: Yes: Other (No external lesions, no masses, brown formed stool.) Edema: No (No LE edema) Neurological: Yes: Alert, Oriented Labs: CBC, BMP 02/13/19 01:10 02/12/19 15:10 INR, PTT INR 1.01 (0.83-1.09) 02/12/19 15:10 Hepatic Panel Total Bilirubin 0.2 mg/dL (0.2-1) 02/12/19 15:10 AST 10 U/L (15-37) L 02/12/19 15:10 ALT 15 U/L (13-61) 02/12/19 15:10 Alkaline Phosphatase 29 U/L (45-117) L 02/12/19 15:10 Albumin 2.6 g/dl (3.4-5.0) L 02/12/19 15:10 Problem List - Problems (1) GI bleed Assessment/Plan: Currently no overt bleeding. Offered EGD + /-Enteroscopy for further small bowel evaluation followed by possible colonoscopy. He states that he recently had this performed at the [facility] along with a capsule endoscopy and does not want repeat procedures at this time. He is aware that continued GI bleeding can be potentially life threatening. He states that he advised his doctor at the [facility] that he was being admitted here and that he was going to be transferred there for further evaluation. This will need ada be clarified by the Medical Team For now: Monitor H/H Clear liquids Keep Hgb 7-8 Protonix 40mg once daily Clarify regarding transfer to [facility] Recall GI if patient amenable to endoscopic evaluation Code(s): K92.2 - GASTROINTESTINAL HEMORRHAGE, UNSPECIFIED Qualifiers: GI bleed type/associated pathology: unspecified gastrointestinal hemorrhage type Qualified Code(s): K92.2 - Gastrointestinal hemorrhage, unspecified
[2019-02-13 11:38] VITALS: TEMP 98
--- NOTE | 2019-02-13 11:40 | PN ---
Teaching Attending Note Name of Resident: Lion Pat ATTENDING PHYSICIAN STATEMENT I saw and evaluated the patient. I reviewed the resident's note and discussed the case with the resident. I agree with the resident's findings and plan as documented. SUBJECTIVE: Patient seen and examined in the ICU. Awake and alert. Denies CP or SOB. Receiving 3rd unit of pRBCs. No occult bleeding Intake & Output 02/10/19 02/11/19 02/12/19 02/13/19 23:59 23:59 23:59 23:59 Intake Total 1200 Output Total 500 Balance -500 1200 Weight 228 lb 1.6 oz Last Vital Signs Temp Pulse Resp BP Pulse Ox 97.8 F 84 18 141/80 100 02/13/19 07:39 02/13/19 09:40 02/13/19 09:40 02/13/19 09:40 02/12/19 22:22 Active Medications Sodium Chloride (Normal Saline -) 1,000 mls @ 75 mls/hr IV ASDIR NATALIIA Last Admin: 02/13/19 09:58 Dose: 75 mls/hr Octreotide Acetate 200 mcg/Octreotide Acetate 1,000 mcg/Dextrose 500 mls @ 20.833 mls/hr IVPB Q24H NATALIIA; Protocol Pantoprazole Sodium (Protonix Iv) 40 mg IVPUSH BID NTAALIIA Last Admin: 02/13/19 09:58 Dose: 40 mg GENERAL: Awake, alert, and fully oriented, NAD HEAD: Normal with no signs of trauma. EYES: cataracts bilaterally, PERRL EARS, NOSE, THROAT: dry mucous membranes. NECK: Normal range of motion, supple, trachea midline LUNGS: Breath sounds equal, clear to auscultation bilaterally. No wheezes, and no crackles. No accessory muscle use. HEART: RRR, murmur noted ABDOMEN: Soft, nontender, not distended, normoactive bowel sounds, no guarding, no rebound, no masses EXTREMITIES: 2+ pulses, warm, well-perfused. No calf tenderness. No peripheral edema. NEUROLOGICAL: Non-focal PSYCHIATRIC: Good eye contact. SKIN: Warm, dry Laboratory Results - last 24 hr 02/12/19 02/12/19 02/12/19 15:10 15:10 15:10 WBC 5.4 RBC 1.54 L Hgb 4.2 L* Hct 13.0 L MCV 84.6 MCH 27.0 D MCHC 31.9 L RDW 21.7 H Plt Count 196 D MPV 7.9 Absolute Neuts (auto) 4.0 Neutrophils % 73.4 D Lymphocytes % 18.9 D Monocytes % 5.7 Eosinophils % 1.3 Basophils % 0.7 Nucleated RBC % 0 Hypochromia 3+ Platelet Estimate Normal Polychromasia 1+ Poikilocytosis 1+ Anisocytosis 2+ Microcytosis 2+ Macrocytosis 0 Tear Drop Cells 1+ Ovalocytes 1+ PT with INR 11.90 INR 1.01 PTT (Actin FS) 24.5 L Sodium 140 Potassium 4.4 Chloride 107 Carbon Dioxide 26 Anion Gap 7 L BUN 15.7 Creatinine 1.4 H Est GFR (CKD-EPI)AfAm 61.97 Est GFR (CKD-EPI)NonAf 53.47 Random Glucose 120 H Calcium 8.0 L Total Bilirubin 0.2 AST 10 L ALT 15 Alkaline Phosphatase 29 L Total Protein 5.3 L Albumin 2.6 L Blood Type Antibody Screen Crossmatch 02/12/19 02/13/19 15:10 01:10 WBC 6.1 RBC 2.15 L Hgb 5.9 L* Hct 17.9 L D MCV 82.9 MCH 27.6 MCHC 33.3 RDW 19.2 H Plt Count 173 MPV 7.8 Absolute Neuts (auto) Neutrophils % Lymphocytes % Monocytes % Eosinophils % Basophils % Nucleated RBC % Hypochromia Platelet Estimate Polychromasia Poikilocytosis Anisocytosis Microcytosis Macrocytosis Tear Drop Cells Ovalocytes PT with INR INR PTT (Actin FS) Sodium Potassium Chloride Carbon Dioxide Anion Gap BUN Creatinine Est GFR (CKD-EPI)AfAm Est GFR (CKD-EPI)NonAf Random Glucose Calcium Total Bilirubin AST ALT Alkaline Phosphatase Total Protein Albumin Blood Type A POSITIVE Antibody Screen Negative Crossmatch See Detail ASSESSMENT/PLAN: Acute GI Bleed: (?) Upper source MDD HTN Previous history of GI bleeds Diverticulitis Anxiety Alcohol abuse Transfusional support O2 as needed Mechanical VTE prophylaxis Noted 1:1 monitoring due to apparent suicidal ideation GI evaluation Floor if otherwise stable Dr Harrison
[2019-02-13 11:50] LABS: BASO % 0.7 % (0-2.0); EOS % 2.8 % (0-4.5); HEMATOCRIT 24.3 % (35.4-49); HEMOGLOBIN 8.1 GM/dL (11.7-16.9); LYMPH % 17.8 % (8-40); MCHC 33.4 g/dl (32.0-35.9); MEAN CELL VOLUME 83.7 fl (80-96); MEAN PLT VOLUME 7.8 fl (7.5-11.1); NEUT % 71.7 % (42.8-82.8); PLATELET COUNT 172 K/MM3 (134-434); RDW 17.8 % (11.9-15.9); WHITE BLOOD COUNT 4.9 K/mm3 (4.0-10.0)
[2019-02-13] MEDS ORDERED: OCTREOTIDE ACETATE 200 MCG, OCTREOTIDE ACETATE 1,000 MCG in DEXTROSE 5%-WATER - 496 ML IVPB SCH (12:00)
[2019-02-13 12:13] LABS: ALBUMIN 2.9 g/dl (3.4-5.0); BLOOD UREA NITROGEN 11.8 mg/dL (7-18); CALCIUM 7.9 mg/dL (8.5-10.1); CREATININE 1.1 mg/dL (0.55-1.3); MAGNESIUM 2.2 mg/dL (1.8-2.4); PHOSPHOROUS 3.4 mg/dL (2.5-4.9); POTASSIUM 4.2 mmol/L (3.5-5.1); TOT PROT 5.5 g/dl (6.4-8.2)
[2019-02-13 14:20] VITALS: BP 151/91; PULSE 88
[2019-02-13] MEDS: LABETALOL HCL 5 MG/1 ML (100MG/20 ML VIAL) IVPUSH ONE ×2 (14:23→14:30)
--- NOTE | 2019-02-13 14:56 | PN ---
Progress Note (short form) - Note Progress Note: Received call from Nurse Mary Brantley at the [facility] on behalf of Dr. Martinez (patient's PCP). They agreed to send over capsule swallow report and recent discharge summary. Plan to have their care coordinators call to discuss possible transfer / care coordination moving forward. Their office phone number is [phone] ext [phone].
--- NOTE | 2019-02-13 15:43 | CONSULT ---
- Consultation REQUESTING PROVIDER: CONSULT REQUEST: We have been asked to surgically evaluate this patient for GI bleed. PCP:Jenna Wayne HISTORY OF PRESENT ILLNESS: 63 y/o M w/ PMHx GI bleeds, HTN, anxiety, depression , and alcohol abuse a/w suicidal ideation and rectal bleeding for 1 week. Pt extremely upset at time of evaluation due to recent interaction with ICU MD. Pt reports he first began having episodes of dark stool over the summer. Reports he had an endoscopy/colonoscopy here in August which revealed "nothing". Per GI ( Dr Kulkarni) EGD revealed gastritis and colonoscopy revealed diverticulosis in sigmoid, two colon polyps. Pt reports he subsequently had repeat EGD/ colonoscopy at [facility] as well as a recent capsule endoscopy which did not the source of his bleed. Pt now reports he began drinking heavily since as his gf broke up with him (Vodka). Reports 1 week h/o dark, maroon-colored stools. Takes 40mg Protonix BID and follows at [facility] closely ( psychiatry/AA twice weekly). Denies abdominal pain, post prandial pain, n/v/d. PMHx: as above PSHx: denies Home Medications Medication Instructions Recorded Buspirone HCl [Buspar -] 10 mg PO BID 08/17/18 Metoprolol Succinate [Toprol Xl] 25 mg PO DAILY 08/17/18 Nifedipine ER [Procardia XL -] 30 mg PO DAILY 08/17/18 Trazodone HCl 300 mg PO HS 08/17/18 Bupropion HCl [Bupropion HCl ER] 200 mg PO BID 08/19/18 Pantoprazole Sodium 40 mg PO BID #60 tablet. 08/22/18 Allergies Allergy/AdvReac Type Severity Reaction Status Date / Time lisinopril Allergy Verified 02/12/19 13:24 REVIEW OF SYSTEMS: CONSTITUTIONAL: Absent: fever, chills CARDIOVASCULAR: Absent: chest pain RESPIRATORY: Absent: cough GASTROINTESTINAL: Absent: abdominal pain, abdominal distension, nausea, vomiting, diarrhea, constipation, + melena, +hematochezia PHYSICAL EXAM: GENERAL: Awake, alert, and fully oriented, in no acute distress. HEAD: Normal with no signs of trauma. ABDOMEN: Soft, nontender, not distended, normoactive bowel sounds, no guarding, no rebound. Vital Signs Temperature 98 F 12/05/19 11:36 Pulse Rate 88 02/13/19 14:00 Respiratory Rate 18 02/13/19 14:00 Blood Pressure 151/91 02/13/19 14:00 O2 Sat by Pulse Oximetry (%) 100 02/12/19 22:22 Lab Results WBC 4.9 K/mm3 (4.0-10.0) 02/13/19 10:55 RBC 2.90 M/mm3 (4.00-5.60) L 02/13/19 10:55 Hgb 8.1 GM/dL (11.7-16.9) L 02/13/19 10:55 Hct 24.3 % (35.4-49) L D 02/13/19 10:55 MCV 83.7 fl (80-96) 02/13/19 10:55 MCHC 33.4 g/dl (32.0-35.9) 02/13/19 10:55 RDW 17.8 % (11.9-15.9) H 02/13/19 10:55 Plt Count 172 K/MM3 (134-434) 02/13/19 10:55 Sodium 138 mmol/L (136-145) 02/13/19 10:55 Potassium 4.2 mmol/L (3.5-5.1) 02/13/19 10:55 Chloride 107 mmol/L (98-107) 02/13/19 10:55 Carbon Dioxide 25 mmol/L (21-32) 02/13/19 10:55 Anion Gap 6 MMOL/L (8-16) L 02/13/19 10:55 BUN 11.8 mg/dL (7-18) 02/13/19 10:55 Creatinine 1.1 mg/dL (0.55-1.3) 02/13/19 10:55 Random Glucose 108 mg/dL (74-106) H 02/13/19 10:55 Calcium 7.9 mg/dL (8.5-10.1) L 02/13/19 10:55 Blood Type A POSITIVE 02/12/19 15:10 Antibody Screen Negative 02/12/19 15:10 INR 1.01 (0.83-1.09) 02/12/19 15:10 A/P: 63 y/o M w/ PMHx GI bleeds, HTN, anxiety, depression, and alcohol abuse a/ w suicidal ideation and rectal bleeding for 1 week. Pt s/p 3units pRBCs for h/h 4.2. Refusing EGD/colonoscopy Requesting transfer to [place] -No acute general surgery intervention at this time -Pt NPO, per GI may advance to clears -Continue PPIs -Please reconsult prn d/w attending Dr Benedict
--- NOTE | 2019-02-13 17:33 | PN ---
Progress Note, Physician - Current Medication List Current Medications: Active Medications Buspirone HCl (Buspar -) 10 mg PO BID NATALIIA Sodium Chloride (Normal Saline -) 1,000 mls @ 75 mls/hr IV ASDIR NATALIIA Last Admin: 02/13/19 09:58 Dose: 75 mls/hr Octreotide Acetate 200 mcg/Octreotide Acetate 1,000 mcg/Dextrose 500 mls @ 20.833 mls/hr IVPB Q24H NATALIIA; Protocol Last Admin: 02/13/19 14:03 Dose: 20.833 mls/hr Metoprolol Succinate (Toprol Xl -) 25 mg PO DAILY NATALIIA Nifedipine (Procardia Xl -) 30 mg PO DAILY NATALIIA Non-Formulary Medication (Bupropion Hcl [Bupropion Hcl Er]) 200 mg PO BID NATALIIA Non-Formulary Medication (Trazodone Hcl [Trazodone Hcl]) 300 mg PO HS NATALIIA Pantoprazole Sodium (Protonix Iv) 40 mg IVPUSH BID NATALIIA Last Admin: 02/13/19 09:58 Dose: 40 mg - Objective Vital Signs: Vital Signs Temperature 98 F 02/13/19 11:36 Pulse Rate 88 02/13/19 14:00 Respiratory Rate 18 02/13/19 16:00 Blood Pressure 151/91 02/13/19 14:00 O2 Sat by Pulse Oximetry (%) 100 02/12/19 22:22 Constitutional: Yes: No Distress HENT: Yes: Atraumatic Neck: Yes: Supple Cardiovascular: Yes: Regular Rate and Rhythm Respiratory: Yes: CTA Bilaterally Gastrointestinal: Yes: Normal Bowel Sounds Extremities: Yes: WNL Neurological: Yes: Alert, Oriented Labs: CBC, BMP 02/13/19 10:55 02/13/19 10:55 INR, PTT INR 1.01 (0.83-1.09) 02/12/19 15:10 Problem List - Problems (1) Lower GI bleed Code(s): K92.2 - GASTROINTESTINAL HEMORRHAGE, UNSPECIFIED (2) Alcohol abuse Code(s): F10.10 - ALCOHOL ABUSE, UNCOMPLICATED (3) Anemia Code(s): D64.9 - ANEMIA, UNSPECIFIED Qualifiers: Anemia type: unspecified type Qualified Code(s): D64.9 - Anemia, unspecified (4) HTN (hypertension) Code(s): I10 - ESSENTIAL (PRIMARY) HYPERTENSION Assessment/Plan Laboratory Tests 02/12/19 02/12/19 02/12/19 15:10 15:10 15:10 WBC 5.4 RBC 1.54 L Hgb 4.2 L* Hct 13.0 L MCV 84.6 MCH 27.0 D MCHC 31.9 L RDW 21.7 H Plt Count 196 D MPV 7.9 Absolute Neuts (auto) 4.0 Neutrophils % 73.4 D Lymphocytes % 18.9 D Monocytes % 5.7 Eosinophils % 1.3 Basophils % 0.7 Nucleated RBC % 0 Hypochromia 3+ Platelet Estimate Normal Polychromasia 1+ Poikilocytosis 1+ Anisocytosis 2+ Microcytosis 2+ Macrocytosis 0 Tear Drop Cells 1+ Ovalocytes 1+ PT with INR 11.90 INR 1.01 PTT (Actin FS) 24.5 L Sodium 140 Potassium 4.4 Chloride 107 Carbon Dioxide 26 Anion Gap 7 L BUN 15.7 Creatinine 1.4 H Est GFR (CKD-EPI)AfAm 61.97 Est GFR (CKD-EPI)NonAf 53.47 Random Glucose 120 H Calcium 8.0 L Total Bilirubin 0.2 AST 10 L ALT 15 Alkaline Phosphatase 29 L Total Protein 5.3 L Albumin 2.6 L Blood Type Antibody Screen Crossmatch 02/12/19 15:10 WBC RBC Hgb Hct MCV MCH MCHC RDW Plt Count MPV Absolute Neuts (auto) Neutrophils % Lymphocytes % Monocytes % Eosinophils % Basophils % Nucleated RBC % Hypochromia Platelet Estimate Polychromasia Poikilocytosis Anisocytosis Microcytosis Macrocytosis Tear Drop Cells Ovalocytes PT with INR INR PTT (Actin FS) Sodium Potassium Chloride Carbon Dioxide Anion Gap BUN Creatinine Est GFR (CKD-EPI)AfAm Est GFR (CKD-EPI)NonAf Random Glucose Calcium Total Bilirubin AST ALT Alkaline Phosphatase Total Protein Albumin Blood Type A POSITIVE Antibody Screen Negative Crossmatch See Detail Active Medications Generic Name Dose Route Start Last Admin Trade Name Freq PRN Reason Stop Dose Admin Sodium Chloride 1,000 mls @ 75 mls/hr 02/12/19 18:30 Normal Saline - IV ASDIR NATALIIA Pantoprazole Sodium 40 mg 02/12/19 22:00 Protonix Iv IVPUSH BID NATALIIA Active Medications Generic Name Dose Route Start Last Admin Trade Name Freq PRN Reason Stop Dose Admin Sodium Chloride 1,000 mls @ 75 mls/hr 02/12/19 18:30 02/12/19 19:40 Normal Saline - IV 75 mls/hr ASDIR NATALIIA Administration Pantoprazole Sodium 40 mg 02/12/19 22:00 Protonix Iv IVPUSH BID NATALIIA cc time 30 min
[2019-02-13] MEDS ORDERED: metoPROLOL SUCCINATE 25 MG TAB.SR.24H (FP) PO SCH (17:45)
--- NOTE | 2019-02-13 17:54 | CON.PSY ---
Psychiatry Consult Chief Complaint: 63 DIANE OLD MALE, [place], receives Psych treatment for Major DEpressive Disorder for the past 20yrs. On Multiple antidepressants and attends [facility] twice a week. Patient admitted for Rectal bleed and apparantly said to Er staff that he wants to bleed to . Patient had beengiven Blood Transfusions and medically stable . Patient denies he was frustrated and never wanted to . I have friebds and family and like going to [place]> Just make me better mEdically and I will go see my Psych tomorrow. No history of concrete suicide attempts. Patient is jovial and talking and engaged with staff. Laughibg and joking. Symptoms: reports: Irritability - Previous Psychiatric Treatment Outpatient: Less than 6 mos ago Inpatient: One prior admission - Previous Substance Abuse Treatment Outpatient: None Inpatient: None - Reason for Previous Treatment Reason for Previous Treatment: Major Depression - Current Medications Current Medications: Active Medications Bupropion HCl (Wellbutrin Xl -) 450 mg PO DAILY [facility] Buspirone HCl (Buspar -) 10 mg PO BID [facility] Sodium Chloride (Normal Saline -) 1,000 mls @ 75 mls/hr IV ASDIR [facility] Last Admin: 02/13/19 09:58 Dose: 75 mls/hr Octreotide Acetate 200 mcg/Octreotide Acetate 1,000 mcg/Dextrose 500 mls @ 20.833 mls/hr IVPB Q24H [facility]; Protocol Last Admin: 02/13/19 14:03 Dose: 20.833 mls/hr Metoprolol Succinate (Toprol Xl -) 25 mg PO DAILY [facility] Nifedipine (Procardia Xl -) 30 mg PO DAILY [facility] Pantoprazole Sodium (Protonix Iv) 40 mg IVPUSH BID [facility] Last Admin: 02/13/19 09:58 Dose: 40 mg Trazodone HCl (Desyrel -) 300 mg PO HS [facility] - Allergies Allergies: Allergies Allergy/AdvReac Type Severity Reaction Status Date / Time lisinopril Allergy Verified 02/12/19 13:24 - Current Living Status Usual Living Arrangement: Alone - Current Mental Status Evaluation Appearance: Well Groomed Attitude: Cooperative - Affect Affect: Full Range Appropriateness: Appropriate to Content - Mood Mood: Irritable - Speech/Language Expressive: Coherent - Psychomotor Activity Psychomotor Activity: Normal - Thought Process Thought Process: Intact - Thought Content Hallucinations: Absent Delusions: Absent - Self Perception Self Perception: No Impairment - Cognition Attention: Alert Orientation: Time Memory, Immediate Recall: Intact Memory, Short Term: 3/3 Memory, Remote with Promptin/3 - Concentration Serial Sevens Intact: No Simple Calculations Intact: Yes - Abstraction Proverb Interpretation: Intact Judgement: Intact - Insight Insight: Intact - Impulse Control Impulse Control: Good Control - Suicidal Ideation Suicidal Ideation: No - Homicidal Ideation Homicidal Ideation: No Assessment/Plan 1) Patient is Psychiatrically stable. 2) Not acutely suicidal at this time. 3) Discharge HOme when MEdically stable. $) Follow up at [facility].
--- NOTE | 2019-02-13 18:07 | DS ---
Physical Examination Vital Signs: Vital Signs Temperature 98 F 02/13/19 11:36 Pulse Rate 88 02/13/19 14:00 Respiratory Rate 18 02/13/19 16:00 Blood Pressure 151/91 02/13/19 14:00 O2 Sat by Pulse Oximetry (%) 100 02/12/19 22:22 Constitutional: Yes: No Distress HENT: Yes: Atraumatic Neck: Yes: Supple Cardiovascular: Yes: Regular Rate and Rhythm Respiratory: Yes: CTA Bilaterally Gastrointestinal: Yes: Normal Bowel Sounds Extremities: Yes: WNL Neurological: Yes: Alert, Oriented Labs: CBC, BMP 02/13/19 10:55 02/13/19 10:55 Discharge Summary Problems reviewed: Yes Reason For Visit: GASTROINTESTINAL HEMORRHAGE, ANEMIA,LOWER GASTROIN Current Active Problems Lower GI bleed (Acute) - Instructions Diet, Activity, Other Instructions: follow up your own gi team at [facility] 2-3 days fu cbc - Home Medications Comprehensive Discharge Medication List: Ambulatory Orders Buspirone HCl [Buspar -] 10 mg PO BID 08/17/18 Metoprolol Succinate [Toprol Xl] 25 mg PO DAILY 08/17/18 Nifedipine ER [Procardia XL -] 30 mg PO DAILY 08/17/18 Trazodone HCl 300 mg PO HS 08/17/18 Bupropion HCl [Bupropion HCl ER] 200 mg PO BID 08/19/18 Pantoprazole Sodium 40 mg PO BID #60 tablet. 08/22/18 h/h stable cleaed by psych to be dc fu [facility] at [place]
[2019-02-13] MEDS ORDERED: busPIRone HCL 10 MG TABLET (FP) PO SCH (22:00)
[2019-02-13] MEDS ORDERED: traZODone HCL 100 MG TABLET (FP) PO SCH (22:00)
[2019-02-14] MEDS ORDERED: NIFEdipine E.R. 30 MG TABLET (FP) PO SCH (10:00)
== END 2019-02-13 18:29 | disposition left against medical advice (07) | DRG 378 ==
LOC: JER 13:17 → JERBED 16:34 → JICU 21:49
PROVIDERS: ADMIT Internal Medicine; ATTEND Internal Medicine
PROC: 30233N1 Transfusion of Nonautologous Red Blood Cells into Peripheral Vein, Percutaneous Approach (ICD-10-PCS; principal; 2019-02-12)
DX: K92.2 Gastrointestinal hemorrhage, unspecified (principal); R45.851 Suicidal ideations; I10 Essential (primary) hypertension; F32.9 Major depressive disorder, single episode, unspecified; F10.10 Alcohol abuse, uncomplicated; R00.0 Tachycardia, unspecified
CPT/HCPCS: 36415; 36430; 36511; 71045-TC-FY; 80053; 83735; 84100; 85025; 85027; 85610; 85730; 86850; 86900; 86901; 86922; 93005; 93010; 99285-25; J7030; P9038; P9058

== ENCOUNTER 2019-05-18 20:19 | Inpatient (IN) | payer OTHER ==
[2019-05-18] MEDS ORDERED: FAMOTIDINE 20 MG/50 ML IVPB 20 MG/50 ML MG IVPB ONE ×2 (22:25→23:40)
[2019-05-18] MEDS ORDERED: MAG HYDROX/AL HYDROX/SIMETH 30 ML UNIT-DOSE CUP PO ONE (22:26)
[2019-05-18] MEDS ORDERED: ACETAMINOPHEN 1000 MG/100 ML VIAL (NON FORMULARY) IVPB ONE (22:26)
[2019-05-18] MEDS ORDERED: ONDANSETRON 4 MG/2 ML VIAL IVPUSH ONE (22:26)
[2019-05-18] MEDS ORDERED: SODIUM CHLORIDE 0.9% 500 ML INFUS.BAG IV ONE (22:26)
--- NOTE | 2019-05-18 22:36 | PDOC ---
History of Present Illness - General Chief Complaint: Pain Stated Complaint: ABDOMINAL PAIN Time Seen by Provider: 05/18/19 22:11 History Source: Patient Exam Limitations: No Limitations - History of Present Illness Initial Comments: 64M PMH HTN, etoh abuse, pancreatitis, LGIB, MDD presenting with a few hours of sharp constant epigastric pain and b/l flank pain a few hours after having soup today. Endorses nausea and one episode of nbnb self induced emesis. Denies diarrhea; passing flatus. Recently eval'd at [facility] for similar sx and DC'd w/ PPI and levaquin. Denies f/c, cp/sob. Endorses heavy etoh use but has been cutting down; states last drink was 2 weeks ago. No h/o renal stones. Past History - Past Medical History Allergies/Adverse Reactions: Allergies Allergy/AdvReac Type Severity Reaction Status Date / Time lisinopril Allergy Verified 05/18/19 20:25 Home Medications: Ambulatory Orders Buspirone HCl [Buspar -] 10 mg PO BID 08/17/18 Metoprolol Succinate [Toprol Xl] 25 mg PO DAILY 08/17/18 Nifedipine ER [Procardia XL -] 30 mg PO DAILY 08/17/18 Trazodone HCl 300 mg PO HS 08/17/18 Bupropion HCl [Bupropion HCl ER] 200 mg PO BID 08/19/18 Pantoprazole Sodium 40 mg PO BID #60 tablet. 08/22/18 Anemia: No Asthma: No Cancer: No Cardiac Disorders: Yes CVA: No COPD: Yes Dementia: No Diabetes: No GI Disorders: Yes (gi bleed) Disorders: No HTN: Yes Hypercholesterolemia: No Liver Disease: No Psychiatric Problems: Yes (depression, alcohol abuse) Seizures: No Thyroid Disease: No - Surgical History Abdominal Surgery: No Appendectomy: No Cardiac Surgery: No Cholecystectomy: No Lung Surgery: No Neurologic Surgery: No Orthopedic Surgery: Yes (left hip replacement) - Psycho Social/Smoking Cessation Hx Smoking History: Never smoked Have you smoked in the past 12 months: No If you are a former smoker, when did you quit?: 1988 Hx Alcohol Use: Yes Drug/Substance Use Hx: No Substance Use Type: Alcohol Hx Substance Use Treatment: Yes (quit 2007) Review of Systems - Review of Systems Able to Perform ROS?: Yes Comments:: CONSTITUTIONAL: Denies F / C HEENT: Denies headache, lightheadedness, dizziness RESP: Denies SOB CARD: Denies chest pain GI: Endorses nausea, abdominal, flank pain, inability to tolerate PO. Denies bloody stool : Denies dysuria, hematuria SKIN: Denies rashes NEURO: Denies numbness, tingling, weakness MSK: Denies back pain *Physical Exam - Vital Signs Last Vital Signs Temp Pulse Resp BP Pulse Ox 97.8 F 100 H 18 130/81 98 05/18/19 20:23 05/18/19 20:23 05/18/19 20:23 05/18/19 20:23 05/18/19 20:23 - Physical Exam GEN: nontoxic, uncomfortable, restless in pain. AAOx3. HEENT: NC/AT, EOMI, PERRL. No facial asymmetry. Moist mucous membranes. Normal voice. Supple neck w/ FROM. CV: S1/S2, RRR, no m/r/g LUNG: CTAB, no wheezes, crackles, rales, rhonchi. GI: +TTP of the epigastrium and RLQ w/ guarding. No tenderness to light percussion. soft, nd, +BS, no rebound. No masses. Neg CVAT b/l. MSK: No obvious deformities of all extremities. SKIN: Warm, dry, no rashes appreciated. PSYCH: Normal mood and affect. NEURO: Moving all extremities well. ambulates w/ normal gait. ED Treatment Course - LABORATORY CBC & Chemistry Diagram: 05/19/19 06:32 05/19/19 06:32 - RADIOLOGY Radiology Studies Ordered: Category Date Time Status CHEST X-RAY PORTABLE* [RAD] Stat Radiology 05/18/19 22:25 Ordered Medical Decision Making - Medical Decision Making 05/18/19 22:27 64M PMH HTN, etoh abuse, pancreatitis, LGIB, MDD presenting with epigastric and b/l flank pain. Denies recent etoh. eval'd at [facility] for similar sx dc'd w/ levaquin. Afebrile, uncomfortable, +TTP of epigastrium and b/l flanks. DDX - PUD, Pancreatitis, Appendicitis, Renal stones, Colitis - CBC, CMP, Cardiac, Lipase - CXR - EKG - GI meds + fluids - CT A/P // signed out to PM team Discharge - Discharge Information Problems reviewed: Yes Clinical Impression/Diagnosis: Pancreatic pseudocyst Pancreatitis Qualifiers: Chronicity: chronic Pancreatitis type: alcohol induced Qualified Code(s): K86.0 - Alcohol-induced chronic pancreatitis Condition: Stable - Follow up/Referral - Patient Discharge Instructions - Post Discharge Activity
--- NOTE | 2019-05-18 23:19 | PDOC ---
Documentation entered by Camron Castillo SCRIBE, acting as scribe for Imelda Rosales MD. Imelda Rosales MD: This documentation has been prepared by the Jonathan olivas Nirvannie, SCRIBE, under my direction and personally reviewed by me in its entirety. I confirm that the documentation accurately reflects all work, treatment, procedures, and medical decision making performed by me. Attending Attestation - Resident Resident Name: Az Chan - ED Attending Attestation I have performed the following: I have examined & evaluated the patient, The case was reviewed & discussed with the resident, I agree w/resident's findings & plan, Exceptions are as noted - HPI HPI: 05/18/19 23:20 The patient is a 64 year old male, with a significant past medical history of HTN, alcohol abuse (last drink 2 weeks ago), pancreatitis, lower GI bleed, major depressive disorder, who presents to the emergency department with constant sharp epigastric discomfort with associated bilateral flank pain and nausea with one episode of NBNB emesis (self-induced). Patient notes his symptoms initially started after having soup. Patient was recently evaluated for similar symptoms at the [facility] at which time he was discharged Levaquin and proton pump inhibitor. Patient notes decreased PO intake secondary to his symptoms. Allergies: Lisinopril. - Physicial Exam PE: 05/18/19 23:35 64-year-old male has complaint of epigastric pain and bilateral flank pain Head normocephalic atraumatic Neck is supple Lungs are clear to auscultation bilaterally CVS regular rate and rhythm S1-S2 Abdominal exam epigastric pain Bilateral CVA tenderness Skin warm and dry Neuro alert and oriented x3, ambulatory no gross focal neuro deficits - Medical Decision Making 05/18/19 23:36 64-year-old male with a history of pancreatitis, alcohol abuse, GI bleeds presents with epigastric pain and bilateral flank pain No fever or chills or cough or chest pain Denies any vomiting 05/18/19 23:46 Concern for pancreatitis, gastritis, kidney stones, musculoskeletal pain Plan CAT scan abdomen pelvis with contrast, IV fluids, CBC, chemistries, lipase, EKG, chest x-ray 05/19/19 01:23 EKG is normal sinus rhythm at 76 bpm, QTC C is 434 ms, no acute ST elevations or depressions are appreciated 05/19/19 01:56 CBC is unremarkable creatinine is equal to 1.4, LFTs and lipase are within normal limits Troponin is negative ct scan pending
[2019-05-18 23:37] LABS: BASO % 1.2 % (0-2.0); EOS % 2.9 % (0-4.5); HEMATOCRIT 40.2 % (35.4-49); HEMOGLOBIN 13.5 GM/dL (11.7-16.9); LYMPH % 22.6 % (8-40); MCHC 33.6 g/dl (32.0-35.9); MEAN CELL VOLUME 83.5 fl (80-96); MEAN PLT VOLUME 8.7 fl (7.5-11.1); MONO % 9.7 % (3.8-10.2); NEUT % 63.6 % (42.8-82.8); PLATELET COUNT 226 K/MM3 (134-434); RBC 4.81 M/mm3 (4.00-5.60); RDW 19.9 % (11.9-15.9); WHITE BLOOD COUNT 8.5 K/mm3 (4.0-10.0)
[2019-05-18] MEDS ORDERED: ACETAMINOPHEN INJECTION 100 ML IVPB ONE (23:40)
[2019-05-18] MEDS ORDERED: MAG HYDROX/AL HYDROX/SIMETH 30 ML UNIT-DOSE CUP ONE (23:40)
[2019-05-18] MEDS ORDERED: ONDANSETRON 4 MG/2 ML VIAL ONE (23:40)
[2019-05-18 23:59] LABS: EPI CELLS 0.9 /HPF (0-5/HPF); HYALINE CASTS 3 /lpf (0-8); PH,URINE 7.5 (5.0-8.0); URINE APPEARANCE CLEAR; URINE BACTERIA 0.3 /hpf (NEGATIVE); URINE BILIRUBIN NEGATIVE (NEGATIVE); URINE COLOR YELLOW; URINE GLUCOSE (UA) NEGATIVE (NEGATIVE); URINE KETONE NEGATIVE (NEGATIVE); URINE LEUK ESTERASE TRACE (NEGATIVE); URINE NITRITE NEGATIVE (NEGATIVE); URINE PROTEIN NEGATIVE (NEGATIVE); URINE RBC 3 /hpf (0-4); URINE UROBILINOGEN 0.2 mg/dL (0.2-1.0); URINE WBC 3 /hpf (0-5)
--- NOTE | 2019-05-19 01:03 | PDOC ---
*Physical Exam - Vital Signs Last Vital Signs Temp Pulse Resp BP Pulse Ox 97.8 F 100 H 18 130/81 98 05/18/19 20:23 05/18/19 20:23 05/18/19 20:23 05/18/19 20:23 05/18/19 20:23 ED Treatment Course - LABORATORY CBC & Chemistry Diagram: 05/18/19 23:05 05/19/19 00:33 - ADDITIONAL ORDERS Additional order review: Laboratory Results 05/18/19 05/18/19 23:05 23:05 Sodium Cancelled Potassium Cancelled Chloride Cancelled Carbon Dioxide Cancelled Anion Gap Cancelled BUN Cancelled Creatinine Cancelled Est GFR (CKD-EPI)AfAm Cancelled Est GFR (CKD-EPI)NonAf Cancelled Random Glucose Cancelled Calcium Cancelled Total Bilirubin Cancelled AST Cancelled ALT Cancelled Alkaline Phosphatase Cancelled Creatine Kinase Cancelled Troponin I Cancelled Total Protein Cancelled Albumin Cancelled Urine Color Yellow Urine Appearance Clear Urine pH 7.5 Ur Specific [place] 1.014 Urine Protein Negative Urine Glucose (UA) Negative Urine Ketones Negative Urine Blood Negative Urine Nitrite Negative Urine Bilirubin Negative Urine Urobilinogen 0.2 Ur Leukocyte Esterase Trace Urine WBC (Auto) 3 Urine RBC (Auto) 3 Urine Casts (Auto) 3 U Epithel Cells (Auto) 0.9 Urine Bacteria (Auto) 0.3 05/18/19 23:05 RBC 4.81 MCV 83.5 MCHC 33.6 RDW 19.9 H MPV 8.7 D Neutrophils % 63.6 Lymphocytes % 22.6 D Monocytes % 9.7 Eosinophils % 2.9 Basophils % 1.2 - Medications Given in the ED: ED Medications Discontinued Medications Generic Name Dose Route Start Last Admin Trade Name Kelly PRN Reason Stop Dose Admin Acetaminophen 1,000 mg 05/18/19 22:26 05/18/19 23:52 Ofirmev Injection - IVPB 05/18/19 22:27 1,000 mg ONCE ONE Administration Al Hydroxide/Mg Hydroxide 30 ml 05/18/19 22:26 05/18/19 23:53 Mylanta Oral Suspension - PO 05/18/19 22:27 Not Given ONCE ONE Famotidine/Sodium Chloride 20 mg in 50 mls @ 100 mls/hr 05/18/19 22:25 05/18/19 23:52 Pepcid 20 Mg Premixed Ivpb - IVPB 05/18/19 22:54 100 mls/hr ONCE ONE Administration Ondansetron HCl 4 mg 05/18/19 22:26 05/18/19 23:53 Zofran Injection IVPUSH 05/18/19 22:27 4 mg ONCE ONE Administration Sodium Chloride 1,000 ml 05/18/19 22:26 05/18/19 23:52 Normal Saline - IV 05/18/19 22:27 1,000 ml ONCE ONE Administration Medical Decision Making - Medical Decision Making 05/19/19 02:43 Sign out received from Dr. Chan. 64M w/hx EtOH use disorder, pancreatitis p/w sharp epigastric pain, bilateral flank pain s/p po intake today. Ddx pancreatitis, PUD. Pending: CMP (hemolyzed, new labs sent) CT abdomen pelvis Pain control Dispo: Pending --- Lipase - wnl CBC - wnl CMP - wnl UA - negative On reassessment he continues to have abdominal pain. 2mg morphine ordered. --- On reassessment, he reports that pain has subsided. Dispo pending CT read 05/19/19 03:48 CT notable for chronic pancreatitis, 6x7cm new pancreatic pseudoscyst since 2019. Plan for admission. Discharge - Discharge Information Problems reviewed: Yes Clinical Impression/Diagnosis: Pancreatic pseudocyst Pancreatitis Qualifiers: Chronicity: chronic Pancreatitis type: alcohol induced Qualified Code(s): K86.0 - Alcohol-induced chronic pancreatitis Condition: Stable - Admission Yes - Follow up/Referral - Patient Discharge Instructions - Post Discharge Activity
[2019-05-19] MEDS ORDERED: morphine CARPU-JECT 2 MG/1 ML DISP.SYRIN IVPUSH ONE ×3 (01:17→05:17)
[2019-05-19 01:27] LABS: ALBUMIN 3.3 g/dl (3.4-5.0); ALK PHOS 56 U/L (45-117); ANION GAP 11 MMOL/L (8-16); BILIRUBIN,TOTAL 1.4 mg/dL (0.2-1); CALCIUM 8.4 mg/dL (8.5-10.1); CHLORIDE 100 mmol/L (98-107); CO2 23 mmol/L (21-32); CREATININE 1.4 mg/dL (0.55-1.3); GLUCOSE,RANDOM 142 mg/dL (74-106); POTASSIUM 3.8 mmol/L (3.5-5.1); SGOT/AST 16 U/L (15-37); SGPT/ALT 16 U/L (13-61); SODIUM 134 mmol/L (136-145); TOT PROT 7.6 g/dl (6.4-8.2)
[2019-05-19] MEDS ORDERED: MORPHINE SULFATE 2 MG/ML VIAL ONE ×3 (01:36→13:56)
--- NOTE | 2019-05-19 03:48 | PDOC ---
*Physical Exam - Vital Signs Last Vital Signs Temp Pulse Resp BP Pulse Ox 97.8 F 100 H 18 130/81 98 05/18/19 20:23 05/18/19 20:23 05/18/19 20:23 05/18/19 20:23 05/18/19 20:23 ED Treatment Course - LABORATORY CBC & Chemistry Diagram: 05/23/19 07:50 05/23/19 07:50 - ADDITIONAL ORDERS Additional order review: Laboratory Results 05/19/19 05/19/19 05/19/19 01:54 00:33 00:33 Sodium 134 L Potassium 3.8 Chloride 100 Carbon Dioxide 23 Anion Gap 11 BUN 13.0 Creatinine 1.4 H Est GFR (CKD-EPI)AfAm 61.53 Est GFR (CKD-EPI)NonAf 53.09 Random Glucose 142 H Lactic Acid 1.1 Calcium 8.4 L Total Bilirubin 1.4 H AST 16 ALT 16 Alkaline Phosphatase 56 Creatine Kinase Troponin I < 0.02 Total Protein 7.6 Albumin 3.3 L Lipase 130 Urine Color Urine Appearance Urine pH Ur Specific E[place] Urine Protein Urine Glucose (UA) Urine Ketones Urine Blood Urine Nitrite Urine Bilirubin Urine Urobilinogen Ur Leukocyte Esterase Urine WBC (Auto) Urine RBC (Auto) Urine Casts (Auto) U Epithel Cells (Auto) Urine Bacteria (Auto) 05/18/19 05/18/19 23:05 23:05 Sodium Cancelled Potassium Cancelled Chloride Cancelled Carbon Dioxide Cancelled Anion Gap Cancelled BUN Cancelled Creatinine Cancelled Est GFR (CKD-EPI)AfAm Cancelled Est GFR (CKD-EPI)NonAf Cancelled Random Glucose Cancelled Lactic Acid Calcium Cancelled Total Bilirubin Cancelled AST Cancelled ALT Cancelled Alkaline Phosphatase Cancelled Creatine Kinase Cancelled Troponin I Cancelled Total Protein Cancelled Albumin Cancelled Lipase Urine Color Yellow Urine Appearance Clear Urine pH 7.5 Ur Specific E[place] 1.014 Urine Protein Negative Urine Glucose (UA) Negative Urine Ketones Negative Urine Blood Negative Urine Nitrite Negative Urine Bilirubin Negative Urine Urobilinogen 0.2 Ur Leukocyte Esterase Trace Urine WBC (Auto) 3 Urine RBC (Auto) 3 Urine Casts (Auto) 3 U Epithel Cells (Auto) 0.9 Urine Bacteria (Auto) 0.3 05/18/19 23:05 RBC 4.81 MCV 83.5 MCHC 33.6 RDW 19.9 H MPV 8.7 D Neutrophils % 63.6 Lymphocytes % 22.6 D Monocytes % 9.7 Eosinophils % 2.9 Basophils % 1.2 - Medications Given in the ED: ED Medications Discontinued Medications Generic Name Dose Route Start Last Admin Trade Name Kelly PRN Reason Stop Dose Admin Acetaminophen 1,000 mg 05/18/19 22:26 05/18/19 23:52 Ofirmev Injection - IVPB 05/18/19 22:27 1,000 mg ONCE ONE Administration Al Hydroxide/Mg Hydroxide 30 ml 05/18/19 22:26 05/18/19 23:53 Mylanta Oral Suspension - PO 05/18/19 22:27 Not Given ONCE ONE Famotidine/Sodium Chloride 20 mg in 50 mls @ 100 mls/hr 05/18/19 22:25 05/18/19 23:52 Pepcid 20 Mg Premixed Ivpb - IVPB 05/18/19 22:54 100 mls/hr ONCE ONE Administration Morphine Sulfate 2 mg 05/19/19 01:17 05/19/19 01:49 Morphine Injection - IVPUSH 05/19/19 01:18 2 mg ONCE ONE Administration Ondansetron HCl 4 mg 05/18/19 22:26 05/18/19 23:53 Zofran Injection IVPUSH 05/18/19 22:27 4 mg ONCE ONE Administration Sodium Chloride 1,000 ml 05/18/19 22:26 05/18/19 23:52 Normal Saline - IV 05/18/19 22:27 1,000 ml ONCE ONE Administration Medical Decision Making - Medical Decision Making 05/19/19 03:47 Patient Name: KEL RAJAN THIS IS A PRELIMINARY REPORT FROM [facility] DATE OF SERVICE: 2019-05-19 02:06:58 IMAGES: [id number] EXAM: ABDOMEN \T\ PELVIS CT WITH CONTR HISTORY: Epigastric and flank pain COMPARISON: August 17, 2018 FINDINGS: Again note is made of multiple pancreatic calcifications consistent with chronic pancreatitis. Again note is made of pancreatic ductal dilatation. Compared to the August 17, 2018 scan, there is a new cystic lesion, likely pseudocyst measuring 6.3 cm x 7.1 cm.. There are some inflammatory changes around the pseudocyst as well as around the head/body junction of the pancreas. Therefore, the possibility of acute superimposed upon chronic pancreatitis should be considered. Please note that while this most likely represents a pseudocyst, the possibility of cystic lesion or cystic neoplasm cannot be excluded. Follow-up recommended. Again note is made of poor opacification of the splenic vein. May be chronically occluded or very small. Intrahepatic biliary ducts are slightly dilated. Correlate with biliary enzymes to help rule out biliary obstruction. However this appears to have been present on the prior scan as well. No definite gallbladder abnormalities. Normal spleen. Normal adrenal glands, normal kidneys urinary tracts and urinary bladder. No bowel obstruction or inflammation. Osseous structures are intact. Left hip prosthesis. 05/19/19 03:47 New pseudocyst [id number]; needs drainage and GI workup. Pt is unable to tolerate PO. Discharge - Discharge Information Problems reviewed: Yes Clinical Impression/Diagnosis: Pancreatic pseudocyst Pancreatitis Qualifiers: Chronicity: chronic Pancreatitis type: alcohol induced Qualified Code(s): K86.0 - Alcohol-induced chronic pancreatitis Condition: Stable Disposition: TRANSFER ACUTE CARE/OTHER HOSP - Follow up/Referral - Patient Discharge Instructions - Post Discharge Activity
[2019-05-19] MEDS ORDERED: traZODone HCL 150 MG TABLET PO ONE (03:54)
[2019-05-19] MEDS ORDERED: ACETAMINOPHEN 1000 MG/100 ML VIAL (NON FORMULARY) IVPB PRN (05:04)
[2019-05-19] MEDS ORDERED: LACTATED RINGERS SOLUTION 1,000 ML IV SCH (05:15)
--- NOTE | 2019-05-19 05:40 | PN ---
Teaching Attending Note Name of Resident: Elfego Iyer ATTENDING PHYSICIAN STATEMENT I saw and evaluated the patient. I reviewed the resident's note and discussed the case with the resident. I agree with the resident's findings and plan as documented. SUBJECTIVE: 64 year old male, with a significant past medical history of HTN, alcohol abuse (last drink 2 weeks ago), pancreatitis, lower GI bleed, major depressive disorder presents with sharp epigastric pain and bilateral flank pain associated with nausea and one episode of self-induced emesis, nonbloody. Patient reports eating soup on Sunday and felt nauseous after he was evaluated for similar symptoms at the [place] and was discharged on Levaquin no PPI. Also reported some decreased p.o. intake secondary to symptoms. OBJECTIVE: Last Vital Signs Temp Pulse Resp BP Pulse Ox 97.8 F 100 H 18 130/81 98 05/18/19 20:23 05/18/19 20:23 05/18/19 20:23 05/18/19 20:23 05/18/19 20:23 On physical exam patient was not in any acute distress. He was alert and oriented x3. Head was atraumatic, normocephalic. Neck was supple with no JVD. Cardiovascular exam was S1, S2 with regular rate and rhythm. Chest was clear to auscultation bilaterally. Abdomen soft, epigastric tenderness. Lower extremities are negative for any edema Abnormal Lab Results 05/18/19 05/19/19 23:05 00:33 RDW 19.9 H Sodium 134 L Creatinine 1.4 H Random Glucose 142 H Calcium 8.4 L Total Bilirubin 1.4 H Albumin 3.3 L Imaging studies reviewed CT of abdomen pelvis reviewedmultiple pancreatic calcifications consistent with chronic pancreatitis. New cystic lesion likely pseudocyst measuring 6.3 x 7.1 cm. There is some inflammatory changes around the pseudocyst as well as around the head/body junction of the pancreas. ASSESSMENT AND PLAN: 64-year-old male with symptoms consistent with gastroenteritis, incidentally found to have pancreatic pseudocyst on CAT scan of abdomen pelvis. Other than epigastric pain is asymptomatic. Abdomen pelvis CT was positive for chronic pancreatitis. No fevers or leukocytosis to suggest active infection. No evidence of necrosis on CAT scan of abdomen. Admit to [facility] GI consult IV morphine for pain Keep n.p.o. Observe off of antibiotics at this time as no clinical evidence of infection Abstain from alcohol #RADAMES IV fluid hydration Avoid nephrotoxins #Hypoalbuminemia #EtOH abuse history Thiamine, folate, multivitamin DVT prophylaxisSCDs
--- NOTE | 2019-05-19 07:43 | HP ---
CHIEF COMPLAINT: Abdominal Pain PCP: Follows at the [facility] HISTORY OF PRESENT ILLNESS: 64 M PMH of Chronic pancreatitis, HTN, depression, lower GI bleed, PTSD, TBI who presents today with b/l flank pain and abdominal pain. Patient states he had one episode of similar pain on 05/15/19 after eating a can of chicken broth. He subsequently went to see his doctors in the [place] who prescribed him levaquin and omeprazole. He then had the same brand of canned chicken broth on Sunday and then he began to have his current abdominal pain and flank pain. His pain is located in the mid-epigastric region and is nonradiating. He has had 5 episodes of induced NBNB emesis. He denies any chest pain, shortness of breath, nausea, diarrhea, and dysuria. ER course was notable for: (1) Was given morphine, zofran, mylanta, tylenol IV, and pepcid (2) CTA/P shows multiple pancreatic calcifications consistent with chronic pancreatitis. Again note is made of pancreatic ductal dilatation. Compared to the August 17, 2018 scan, there is a new cystic lesion, likely pseudocyst measuring 6.3 cm x 7.1 cm.. There are some inflammatory changes around the pseudocyst as well as around the head/body junction of the pancreas. Therefore, the possibility of acute superimposed upon chronic pancreatitis should be considered. Please note that while this most likely represents a pseudocyst, the possibility of cystic lesion or cystic neoplasm cannot be excluded. Follow-up recommended.Again note is made of poor opacification of the splenic vein. May be chronically occluded or very small. Intrahepatic biliary ducts are slightly dilated. Correlate with biliary enzymes to help rule out biliary obstruction. However this appears to have been present on the prior scan as well.No definite gallbladder abnormalities. Normal spleen. Normal adrenal glands, normal kidneys urinary tracts and urinary bladder.No bowel obstruction or inflammation.Osseous structures are intact. Left hip prosthesis. Recent Travel: None PAST MEDICAL HISTORY: Depression, Chronic Pancreatitis, HTN, lower GI bleed, PTSD, TBI FAMILY MEDICAL HISTORY: HTN and Aneurysms on mother side. HTN on father side PAST SURGICAL HISTORY: Left Hip replacement. Social History: Smoking: Denies Alcohol: Has EtOH abuse history. Last drink 2 weeks ago Drugs: Last substance use was 8 years ago. Allergies lisinopril Allergy (Verified 05/18/19 20:25) HOME MEDICATIONS: Home Medications Medication Instructions Recorded Buspirone HCl [Buspar -] 10 mg PO BID 08/17/18 Metoprolol Succinate [Toprol Xl] 25 mg PO DAILY 08/17/18 Nifedipine ER [Procardia XL -] 30 mg PO DAILY 08/17/18 Trazodone HCl 300 mg PO HS 08/17/18 Bupropion HCl [Bupropion HCl ER] 200 mg PO BID 08/19/18 Pantoprazole Sodium 40 mg PO BID #60 tablet. 08/22/18 REVIEW OF SYSTEMS CONSTITUTIONAL: Absent: fever, chills, diaphoresis, generalized weakness, malaise, loss of appetite, weight change HEENT: Absent: rhinorrhea, nasal congestion, throat pain, throat swelling, difficulty swallowing, mouth swelling, ear pain, eye pain, visual changes CARDIOVASCULAR: Absent: chest pain, syncope, palpitations, irregular heart rate, lightheadedness, peripheral edema RESPIRATORY: Absent: cough, shortness of breath, dyspnea with exertion, orthopnea, wheezing, stridor, hemoptysis GASTROINTESTINAL: Present: abdominal pain Absent: abdominal distension, nausea, vomiting, diarrhea, constipation, melena, hematochezia GENITOURINARY: Present: flank pain Absent: dysuria, frequency, urgency, hesitancy, hematuria,, genital pain MUSCULOSKELETAL: Absent: myalgia, arthralgia, joint swelling, back pain, neck pain SKIN: Absent: rash, itching, pallor HEMATOLOGIC/IMMUNOLOGIC: Absent: easy bleeding, easy bruising, lymphadenopathy, frequent infections ENDOCRINE: Absent: unexplained weight gain, unexplained weight loss, heat intolerance, cold intolerance NEUROLOGIC: Absent: headache, focal weakness or paresthesias, dizziness, unsteady gait, seizure, mental status changes, bladder or bowel incontinence PSYCHIATRIC: Absent: anxiety, depression, suicidal or homicidal ideation, hallucinations. PHYSICAL EXAMINATION Vital Signs - 24 hr 05/18/19 05/19/19 20:23 06:56 Temperature 97.8 F Pulse Rate 100 H Pulse Rate [ 108 H Apical] Respiratory 18 18 Rate Blood Pressure 130/81 Blood Pressure 107/67 [Left Arm] O2 Sat by Pulse 98 99 Oximetry (%) GENERAL: Awake, alert, and fully oriented, in no acute distress. HEAD: Normal with no signs of trauma. EYES: Pupils equal, round and reactive to light, extraocular movements intact, sclera anicteric, conjunctiva clear. EARS, NOSE, THROAT: Ears normal, nares patent, oropharynx clear without exudates. Moist mucous membranes. NECK: Normal range of motion, supple without lymphadenopathy, JVD, or masses. LUNGS: Breath sounds equal, clear to auscultation bilaterally. No wheezes, and no crackles. No accessory muscle use. HEART: Regular rate and rhythm, normal S1 and S2 without murmur, rub or gallop. ABDOMEN: Tender in the epigastric region. Soft. Normoactive bowel sounds. MUSCULOSKELETAL: B/L CVA tenderness UPPER EXTREMITIES: 2+ pulses, warm, well-perfused. No cyanosis. No clubbing. No peripheral edema. LOWER EXTREMITIES: 2+ pulses, warm, well-perfused. No calf tenderness. No peripheral edema. NEUROLOGICAL: Cranial nerves II-XII intact. Normal speech. Normal gait. PSYCHIATRIC: Cooperative. Good eye contact. Appropriate mood and affect. SKIN: Warm, dry, normal turgor, no rashes or lesions noted, normal capillary refill. Laboratory Results - last 24 hr 05/18/19 05/18/19 05/18/19 23:05 23:05 23:05 WBC 8.5 RBC 4.81 Hgb 13.5 Hct 40.2 D MCV 83.5 MCH 28.0 MCHC 33.6 RDW 19.9 H Plt Count 226 D MPV 8.7 D Absolute Neuts (auto) 5.4 Neutrophils % 63.6 Lymphocytes % 22.6 D Monocytes % 9.7 Eosinophils % 2.9 Basophils % 1.2 Nucleated RBC % 0 Sodium Cancelled Potassium Cancelled Chloride Cancelled Carbon Dioxide Cancelled Anion Gap Cancelled BUN Cancelled Creatinine Cancelled Est GFR (CKD-EPI)AfAm Cancelled Est GFR (CKD-EPI)NonAf Cancelled Random Glucose Cancelled Lactic Acid Calcium Cancelled Total Bilirubin Cancelled AST Cancelled ALT Cancelled Alkaline Phosphatase Cancelled Creatine Kinase Cancelled Troponin I Cancelled Total Protein Cancelled Albumin Cancelled Lipase Urine Color Yellow Urine Appearance Clear Urine pH 7.5 Ur Specific Millen 1.014 Urine Protein Negative Urine Glucose (UA) Negative Urine Ketones Negative Urine Blood Negative Urine Nitrite Negative Urine Bilirubin Negative Urine Urobilinogen 0.2 Ur Leukocyte Esterase Trace Urine WBC (Auto) 3 Urine RBC (Auto) 3 Urine Casts (Auto) 3 U Epithel Cells (Auto) 0.9 Urine Bacteria (Auto) 0.3 05/19/19 05/19/19 05/19/19 00:33 00:33 01:54 WBC RBC Hgb Hct MCV MCH MCHC RDW Plt Count MPV Absolute Neuts (auto) Neutrophils % Lymphocytes % Monocytes % Eosinophils % Basophils % Nucleated RBC % Sodium 134 L Potassium 3.8 Chloride 100 Carbon Dioxide 23 Anion Gap 11 BUN 13.0 Creatinine 1.4 H Est GFR (CKD-EPI)AfAm 61.53 Est GFR (CKD-EPI)NonAf 53.09 Random Glucose 142 H Lactic Acid 1.1 Calcium 8.4 L Total Bilirubin 1.4 H AST 16 ALT 16 Alkaline Phosphatase 56 Creatine Kinase Troponin I < 0.02 Total Protein 7.6 Albumin 3.3 L Lipase 130 Urine Color Urine Appearance Urine pH Ur Specific Mill[place] Urine Protein Urine Glucose (UA) Urine Ketones Urine Blood Urine Nitrite Urine Bilirubin Urine Urobilinogen Ur Leukocyte Esterase Urine WBC (Auto) Urine RBC (Auto) Urine Casts (Auto) U Epithel Cells (Auto) Urine Bacteria (Auto) ASSESSMENT/PLAN: 64 M PMH of Chronic pancreatitis, HTN, depression, lower GI bleed, PTSD, TBI presenting today with abdominal pain likely 2/2 to gastroenteritis. 1) Abdominal pain likely 2/2 to gastroenteritis - Patient had similar episode of pain with relation to food earlier this week - CTA/P notes a new pseudocyst, however patient's pain is more towards the flank and less localized to abdomen. White count doesn't indicate his pseudocyst is infected or necrotic. Likely incidental - NPO - LR @ 100 ml/hr - Offirmev for pain control Q6H PRN - No urgent need for antibiotics, will follow GI recommendations. - GI consulted, Appreciate recommendations on antibiotic and drainage. 2) RADAMES -Likely prerenal due to volume loss and dehydration - Renal U/S ordered. F/U - Urine lytes ordered 3) Hx of Alcohol abuse -Thiamine, folate, Multivitamin DVT: SCD F: LR @ 100 E: Monitor BMP N: NPO Dispo: Admit to med surg Visit type - Emergency Visit Emergency Visit: Yes ED Registration Date: 05/19/19 Care time: The patient presented to the Emergency Department on the above date and was hospitalized for further evaluation of their emergent condition. - New Patient This patient is new to me today: Yes Date on this admission: 05/19/19 - Critical Care Critical Care patient: No ATTENDING PHYSICIAN STATEMENT I saw and evaluated the patient. I reviewed the resident's note and discussed the case with the resident. I agree with the resident's findings and plan as documented. SUBJECTIVE: OBJECTIVE: ASSESSMENT AND PLAN:
[2019-05-19 08:14] LABS: BILIRUBIN,DIRECT 0.2 mg/dL (0.0-0.2); BILIRUBIN,TOTAL 0.4 mg/dL (0.2-1); BLOOD UREA NITROGEN 11.9 mg/dL (7-18); CALCIUM 8.2 mg/dL (8.5-10.1); CREATININE 1.4 mg/dL (0.55-1.3); POTASSIUM 3.9 mmol/L (3.5-5.1)
[2019-05-19 08:56] LABS: HEMATOCRIT 36.8 % (35.4-49); HEMOGLOBIN 12.5 GM/dL (11.7-16.9); MCH 28.2 pg (25.7-33.7); MCHC 33.8 g/dl (32.0-35.9); MEAN CELL VOLUME 83.3 fl (80-96); MEAN PLT VOLUME 8.6 fl (7.5-11.1); PLATELET COUNT 182 K/MM3 (134-434); RBC 4.42 M/mm3 (4.00-5.60); RDW 19.9 % (11.9-15.9); WHITE BLOOD COUNT 6.3 K/mm3 (4.0-10.0)
--- NOTE | 2019-05-19 09:30 | EKG ---
Test Reason : Blood Pressure : / mmHG Vent. Rate : 076 BPM Atrial Rate : 076 BPM P-R Int : 186 ms QRS Dur : 078 ms QT Int : 386 ms P-R-T Axes : 057 015 035 degrees QTc Int : 434 ms NORMAL SINUS RHYTHM WITH SINUS ARRHYTHMIA POSSIBLE LEFT ATRIAL ENLARGEMENT BORDERLINE ECG WHEN COMPARED WITH ECG OF 12-FEB-2019 15:20, NO SIGNIFICANT CHANGE WAS FOUND Confirmed by Inocente Hansen ([id number]) on 05/19/2019 9:30:04 AM Referred By: Confirmed By:Inocente Hansen
[2019-05-19] MEDS ORDERED: THIAMINE HCL 100 MG TABLET (FP) ONE (09:52)
[2019-05-19] MEDS ORDERED: FOLIC ACID 1 MG TABLET (FP) ONE (09:53)
[2019-05-19] MEDS ORDERED: ACETAMINOPHEN INJECTION 100 ML IVPB ONE (09:53)
[2019-05-19] MEDS: MULTIVITAMINS (DAILY MVI) TABLET (FP) PO SCH (13:03)
[2019-05-19] MEDS: FOLIC ACID 1 MG TABLET (FP) PO SCH (13:03)
[2019-05-19] MEDS: THIAMINE HCL 100 MG TABLET (FP) PO SCH (13:04)
[2019-05-19] MEDS ORDERED: MORPHINE SULFATE 2 MG/ML VIAL IVPUSH ONE ×3 (13:52→22:48)
[2019-05-19] MEDS ORDERED: PANTOPRAZOLE SODIUM 40 MG VIAL ONE (14:03)
[2019-05-19] MEDS: PANTOPRAZOLE SODIUM 40 MG VIAL IVPUSH SCH ×2 (14:17→21:17)
--- NOTE | 2019-05-19 15:14 | CON.GI ---
Consult Consult Specialty:: GI Referred by:: Medicine Reason for Consultation:: pancreatic pseudocyst - History of Present Illness Chief Complaint: abd pain History of Present Illness: 64M h/o HTN, h/o chronic pancreatitis, reported h/o GI bleeding of unclear etiology (pt reports he had a capsule done as well that was negative) presenting for evaluation of abdominal pain. On sun, had some chicken broth and on developed diffuse abdominal pain, went to [place] ED and was treated for gastroenteritis. Was back to baseline by Sunday. On Sunday, had similar broth and similar pain developed so he came to [facility] ED. He knows of a pancreatic cyst but he describes his knowledge of it as small. He follows w Dr. Berrios at the [place]. He describes mostly flank pain currently, no N/V or early satiety. Is hungry. - History Source History Provided By: Patient Limitations to Obtaining History: No Limitations - Past Medical History Cardio/Vascular: Yes: HTN Gastrointestinal: Yes: Diverticulosis, Other (Tubular adenomas x 2 08/28) Psych: Yes: Addictions (ETOH abuse), Anxiety, Depression - Alcohol/Substance Use Hx Alcohol Use: Yes - Smoking History Smoking history: Never smoked Have you smoked in the past 12 months: No If you are a former smoker, when did you quit?: 1988 - Social History Usual Living Arrangement: Alone History of Recent Travel: No Home Medications - Allergies Allergies/Adverse Reactions: Allergies Allergy/AdvReac Type Severity Reaction Status Date / Time lisinopril Allergy Verified 05/18/19 20:25 - Home Medications Home Medications: Ambulatory Orders Buspirone HCl [Buspar -] 10 mg PO BID 08/17/18 Metoprolol Succinate [Toprol Xl] 25 mg PO DAILY 08/17/18 Nifedipine ER [Procardia XL -] 30 mg PO DAILY 08/17/18 Trazodone HCl 300 mg PO HS 08/17/18 Bupropion HCl [Bupropion HCl ER] 200 mg PO BID 08/19/18 Pantoprazole Sodium 40 mg PO BID #60 tablet. 08/22/18 Family Medical History Family History: Unremarkable Review of Systems - Review of Systems Constitutional: reports: No Symptoms Eyes: reports: No Symptoms HENT: reports: No Symptoms Neck: reports: No Symptoms Cardiovascular: reports: No Symptoms Respiratory: reports: No Symptoms Gastrointestinal: reports: Abdominal Pain. denies: Melena, Nausea, Vomiting Musculoskeletal: reports: No Symptoms Integumentary: reports: No Symptoms Neurological: reports: No Symptoms Endocrine: reports: No Symptoms Hematology/Lymphatic: reports: No Symptoms Psychiatric: reports: No Symptoms Physical Exam-GI Vital Signs: Vital Signs Temperature 98.1 F 05/19/19 07:35 Pulse Rate 94 H 05/19/19 07:35 Respiratory Rate 18 05/19/19 07:35 Blood Pressure 155/92 05/19/19 07:35 O2 Sat by Pulse Oximetry (%) 95 05/19/19 07:35 Constitutional: Yes: Well Nourished, No Distress Eyes: Yes: Conjunctiva Clear Cardiovascular: Yes: Regular Rate and Rhythm Respiratory: Yes: CTA Bilaterally ...Palpate: Yes: Soft, Tenderness (mild b/l flank ttp). No: Tenderness, Epigastium ...Rectal Exam: Yes: Deferred Musculoskeletal: Yes: WNL Edema: No Neurological: Yes: Alert, Oriented Psychiatric: Yes: Alert, Oriented Labs: CBC, BMP 05/19/19 06:32 05/19/19 06:32 Hepatic Panel Total Bilirubin 0.4 mg/dL (0.2-1) 05/19/19 06:32 Direct Bilirubin 0.2 mg/dL (0.0-0.2) 05/19/19 06:32 AST 16 U/L (15-37) 05/19/19 00:33 ALT 16 U/L (13-61) 05/19/19 00:33 Alkaline Phosphatase 56 U/L (45-117) 05/19/19 00:33 Albumin 3.3 g/dl (3.4-5.0) L 05/19/19 00:33 Imaging - Results Cat Scan: Report Reviewed Assessment/Plan Pancreatic pseudocyst - likely sequelae of ETOH pancreatitis. Does not appear infected. Would discuss with pt outpatient GI Dr. Berrios at the [place] regarding prior imaging and size, but agree this is likely incidental and requires no urgent intervention
--- NOTE | 2019-05-19 17:55 | DS ---
Physical Examination Vital Signs: Vital Signs Temperature 97.5 F L 05/19/19 15:45 Pulse Rate 89 05/19/19 15:45 Respiratory Rate 18 05/19/19 15:45 Blood Pressure 157/83 05/19/19 15:45 O2 Sat by Pulse Oximetry (%) 97 05/19/19 15:45 Constitutional: Yes: Well Nourished Cardiovascular: Yes: WNL Respiratory: Yes: WNL Gastrointestinal: Yes: WNL Labs: CBC, BMP 05/19/19 06:32 05/19/19 06:32 Discharge Summary Problems reviewed: Yes Reason For Visit: CHRONIC PANCREATITIS,PSEUDOCYST OF PANCREAS Current Active Problems Pancreatic pseudocyst (Acute) Pancreatitis (Acute) Hospital Course: 64 year old M with PMH of EtOH abuse came in with diffuse abdominal pain after eating a chicken broth . Of note this was second episode with same chicken broth. Patient denied any nausea or vomiting, and no bloody stools, melena. CT Abdomen was done which was unremarkable except for incidental pancreatic pseudocyst. 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 Patient also has chronic pancreatitis on CT. Patient tolerated oral diet and will follow up with his GI and PMD within 1 week in [place] hospital. Will return to ED if any new symptoms or concerns arise. Encourage hydration and avoid NSAIDS. Condition: Stable - Instructions - Home Medications Comprehensive Discharge Medication List: Ambulatory Orders Buspirone HCl [Buspar -] 10 mg PO BID 08/17/18 Metoprolol Succinate [Toprol Xl] 25 mg PO DAILY 08/17/18 Nifedipine ER [Procardia XL -] 30 mg PO DAILY 08/17/18 Trazodone HCl 300 mg PO HS 08/17/18 Bupropion HCl [Bupropion HCl ER] 200 mg PO BID 08/19/18 Pantoprazole Sodium 40 mg PO BID #60 tablet. 08/22/18 This patient is new to me today: Yes Date on this admission: 05/19/19 Emergency Visit: No Critical Care patient: No - Discharge Referral Referred to [facility] No
--- NOTE | 2019-05-19 18:11 | PN ---
Progress Note, Physician History of Present Illness: 64 year old M with PMH of EtOH abuse came in with diffuse abdominal pain after eating a chicken broth . CT Abdomen was done which was unremarkable except for incidental pancreatic pseudocyst. 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 Patient also has chronic pancreatitis on CT. Patient transitioned to PO diet. Today Pt seen and examined in ED ambulating in no distress Of note this was second episode with same chicken broth. Patient denied any nausea or vomiting, and no bloody stools, melena. - Current Medication List Current Medications: Active Medications Acetaminophen (Ofirmev Injection -) 1,000 mg IVPB Q6H PRN PRN Reason: PAIN LEVEL 7 - 10 Stop: 05/20/19 05:04 Folic Acid (Folic Acid -) 1 mg PO DAILY [facility] Last Admin: 05/19/19 13:03 Dose: 1 mg Documented by: Lactated Ringer's (Lactated Ringers Solution) 1,000 mls @ 100 mls/hr IV ASDIR [facility] Last Admin: 05/19/19 06:11 Dose: 100 mls/hr Documented by: Multivitamins/Minerals/Vitamin C (Tab-A-Vit -) 1 tab PO DAILY [facility] Last Admin: 05/19/19 13:03 Dose: 1 tab Documented by: Pantoprazole Sodium (Protonix Iv) 40 mg IVPUSH BID [facility] Last Admin: 05/19/19 14:17 Dose: 40 mg Documented by: Thiamine HCl (Vitamin B1 -) 100 mg PO DAILY [facility] Last Admin: 05/19/19 13:04 Dose: 100 mg Documented by: - Objective Vital Signs: Vital Signs Temperature 97.9 F 05/19/19 17:53 Pulse Rate 89 05/19/19 15:45 Respiratory Rate 18 05/19/19 17:53 Blood Pressure 166/101 H 05/19/19 17:53 O2 Sat by Pulse Oximetry (%) 96 05/19/19 17:53 Labs: CBC, BMP 05/19/19 06:32 05/19/19 06:32 Impression/Plan Impression/Plan: Acute Gastroenteritis GI consult appreciated CT Abd- Pancreatic pseudocyst on CT Transition to PO diet Pain control PPI 40 mg BID Supp: DVT- ambulation pt will likely d/c after tolerating PO diet Supp care PPI 40 mg BID as home med Visit type - Emergency Visit Emergency Visit: Yes ED Registration Date: 05/19/19 Care time: The patient presented to the Emergency Department on the above date and was hospitalized for further evaluation of their emergent condition. - New Patient This patient is new to me today: No - Critical Care Critical Care patient: No - Discharge Referral Referred to [facility] Med [facility] No
[2019-05-19] MEDS: NIFEdipine E.R. 30 MG TABLET PO SCH (19:52)
[2019-05-19] MEDS: busPIRone HCL 10 MG TABLET (FP) PO SCH (21:17)
[2019-05-19] MEDS: metoPROLOL SUCCINATE 25 MG TAB.SR.24H (FP) PO SCH (21:17)
[2019-05-19] MEDS: traZODone HCL 100 MG TABLET (FP) PO SCH (21:17)
[2019-05-19] MEDS: LACTATED RINGERS SOLUTION 1,000 ML IV SCH (21:19)
[2019-05-19 23:48] VITALS: BMI 26.4
[2019-05-20] MEDS: LACTATED RINGERS SOLUTION 1,000 ML IV SCH ×2 (08:33→21:42)
[2019-05-20] MEDS ORDERED: ACETAMINOPHEN 325 MG TABLET (FP) PO PRN ×2 (08:53→08:54)
[2019-05-20] MEDS: THIAMINE HCL 100 MG TABLET (FP) PO SCH (09:11)
[2019-05-20] MEDS: PANTOPRAZOLE SODIUM 40 MG VIAL IVPUSH SCH ×2 (09:11→21:35)
[2019-05-20] MEDS: NIFEdipine E.R. 30 MG TABLET PO SCH (09:11)
[2019-05-20] MEDS: MULTIVITAMINS (DAILY MVI) TABLET (FP) PO SCH (09:11)
[2019-05-20] MEDS: FOLIC ACID 1 MG TABLET (FP) PO SCH (09:11)
[2019-05-20] MEDS: busPIRone HCL 10 MG TABLET (FP) PO SCH ×2 (09:11→21:35)
[2019-05-20] MEDS: metoPROLOL SUCCINATE 25 MG TAB.SR.24H (FP) PO SCH (09:11)
[2019-05-20] MEDS ORDERED: KETOROLAC TROMETHAMINE 15 MG/ML VIAL IM ONE (12:00)
[2019-05-20] MEDS ORDERED: KETOROLAC TROMETHAMINE 15 MG/ML VIAL IVPUSH ONE (12:47)
--- NOTE | 2019-05-20 16:00 | PN ---
Teaching Attending Note Name of Resident: Kevyn Reyes ATTENDING PHYSICIAN STATEMENT I saw and evaluated the patient. I reviewed the resident's note and discussed the case with the resident. I agree with the resident's findings and plan as documented. SUBJECTIVE: Still complains of epigastric abdominal pain, preventing him from eating. No vomiting. No diarrhea/melena/hematochezia. OBJECTIVE: Afebrile, Hemodynamically Stable. Last Vital Signs Temp Pulse Resp BP Pulse Ox 98.6 F 98 H 18 160/90 99 05/20/19 14:00 05/20/19 14:00 05/20/19 14:00 05/20/19 14:00 05/20/19 09:00 HEENT- Atraumatic, Normocephalic. Heart - S1, S2, RRR Lungs - clear to auscultation Abdomen - Soft, epigastric tenderness. Bowel Sounds normal. Extremities - no edema, no calf tenderness. Laboratory Results - last 24 hr 05/19/19 11:30 Ur Random Sodium 61 Ur Random Potassium 15.0 L Ur Random Chloride 61 L Current Medications Generic Name Dose Route Start Last Admin Trade Name Freq PRN Reason Stop Dose Admin Acetaminophen 650 mg 05/20/19 08:54 Tylenol - PO Q6H PRN PAIN Buspirone HCl 10 mg 05/19/19 22:00 05/20/19 09:11 Buspar - PO 10 mg BID NATALIIA Administration Carvedilol 6.25 mg 05/20/19 22:00 Coreg - PO BID NATALIIA Folic Acid 1 mg 05/19/19 10:00 05/20/19 09:11 Folic Acid - PO 1 mg DAILY NATALIIA Administration Lactated Ringer's 1,000 mls @ 75 mls/hr 05/19/19 20:58 05/20/19 08:33 Lactated Ringers Solution IV 75 mls/hr ASDIR NATALIIA Administration Multivitamins/Minerals/Vitamin C 1 tab 05/19/19 10:00 05/20/19 09:11 Tab-A-Vit - PO 1 tab DAILY NATALIIA Administration Nifedipine 30 mg 05/19/19 19:30 05/20/19 09:11 Procardia Xl - PO 30 mg DAILY NATALIIA Administration Pantoprazole Sodium 40 mg 05/19/19 14:00 05/20/19 09:11 Protonix Iv IVPUSH 40 mg BID NATALIIA Administration Thiamine HCl 100 mg 05/19/19 10:00 05/20/19 09:11 Vitamin B1 - PO 100 mg DAILY NATALIIA Administration Trazodone HCl 300 mg 05/19/19 22:00 05/19/19 21:17 Desyrel - PO 300 mg HS NATALIIA Administration Home Medications Medication Instructions Recorded Buspirone HCl [Buspar -] 10 mg PO BID 08/17/18 Coreg Nifedipine ER [Procardia XL -] 30 mg PO DAILY 08/17/18 Trazodone HCl 300 mg PO HS 08/17/18 Bupropion HCl [Bupropion HCl ER] 200 mg PO BID 08/19/18 Pantoprazole Sodium 40 mg PO BID #60 tablet. 08/22/18 ASSESSMENT/PLAN: 64 year old male with history of Depression, Alcohol abuse, admitted with abdominal pain. CT Abdomen - unremarkable except for chronic pancreatitis and pancreatic pseudocyst. 1. Acute Gastroenteritis Ongoing abdominal discomfort. GI for further recommendations. PPI coverage. 2. Chronic Pancreatitis with Pancreatic Pseudocyst No urgent intervention required as per GI. GI out-patient follow up. 3. Depression - continue Buspirone, Trazodone, Bupropion. 4. HTN - continue Coreg, Nifedipine. 5. Hx Alcohol Abuse - no evidence of withdrawals MVI, Thiamine, Folate. DVT Px - Heparin SQ GI Px - PPI
--- NOTE | 2019-05-20 17:12 | PN ---
Physical Exam: SUBJECTIVE: Patient seen and examined. No acute events overnight. Patient states that he is still having some abdominal discomfort. He was not able to tolerate his lunch but did tolerate a clear liquid breakfast. OBJECTIVE: Vital Signs Period Temp Pulse Resp BP Sys/Bryan Pulse Ox Last 24 Hr 97.9 F-98.8 F 86-98 18-18 136-178/83-101 92-99 GENERAL: The patient is awake, alert, and fully oriented, in no acute distress. HEAD: Normal with no signs of trauma. EYES: PERRL, EOMI ENT: MMM NECK: Trachea midline, full range of motion, supple. LUNGS: Breath sounds equal, clear to auscultation bilaterally, no wheezes, no crackles, no accessory muscle use. HEART: Regular rate and rhythm, S1, S2 without murmur, rub or gallop. ABDOMEN: Soft, nontender, nondistended, normoactive bowel sounds, no guarding EXTREMITIES: 2+ pulses, warm, well-perfused, no edema. NEUROLOGICAL: Cranial nerves II through XII grossly intact. Normal speech, gait not observed. PSYCH: Normal mood, normal affect. SKIN: Warm, dry, normal turgor, no rashes or lesions noted Active Medications Generic Name Dose Route Start Last Admin Trade Name Freq PRN Reason Stop Dose Admin Acetaminophen 650 mg 05/20/19 08:54 Tylenol - PO Q6H PRN PAIN Buspirone HCl 10 mg 05/19/19 22:00 05/20/19 09:11 Buspar - PO 10 mg BID NATALIIA Administration Carvedilol 6.25 mg 05/20/19 22:00 Coreg - PO BID NATALIIA Folic Acid 1 mg 05/19/19 10:00 05/20/19 09:11 Folic Acid - PO 1 mg DAILY NATALIIA Administration Lactated Ringer's 1,000 mls @ 75 mls/hr 05/19/19 20:58 05/20/19 08:33 Lactated Ringers Solution IV 75 mls/hr ASDIR NATALIIA Administration Multivitamins/Minerals/Vitamin C 1 tab 05/19/19 10:00 05/20/19 09:11 Tab-A-Vit - PO 1 tab DAILY NATALIIA Administration Nifedipine 30 mg 05/19/19 19:30 05/20/19 09:11 Procardia Xl - PO 30 mg DAILY NATALIIA Administration Pantoprazole Sodium 40 mg 05/19/19 14:00 05/20/19 09:11 Protonix Iv IVPUSH 40 mg BID NATALIIA Administration Thiamine HCl 100 mg 05/19/19 10:00 05/20/19 09:11 Vitamin B1 - PO 100 mg DAILY NATALIIA Administration Trazodone HCl 300 mg 05/19/19 22:00 05/19/19 21:17 Desyrel - PO 300 mg HS NATALIIA Administration ASSESSMENT/PLAN: 64 y/o/m with PMHx of Chronic pancreatitis, HTN, depression, lower GI bleed, PTSD, TBI presenting today with abdominal pain likely 2/2 to gastroenteritis. #Abdominal pain 2/2 to gastroenteritis - Patient had similar episode of pain with relation to food earlier this week - CTA/P notes chronic pancreatitis, pancreatic pseudocyst - GI consulted - Dr. Huang - no acute intervention needed - follows with GI at [place] - however patient still complaining of pain, would appreciate further GI recs - LR @ 75 mls/hr - Tylenol 650mg PO Q6H - No urgent need for antibiotics, will follow GI recommendations. - Protonix 40mg IV BID #RADAMES - Likely prerenal due to volume loss and dehydration - Renal U/S - no significant abnormalities ordered - monitor CMP in AM #Hx of Alcohol abuse -Thiamine, folate, Multivitamin #DM - A1c - 7.6 - Patient was previously on Metformin but I was told by the [facility] this was discontinued, unsure as to why, no other diabetes medications started. - ISS #Prophylaxis - SCDs #FEN - LR @ 75mls/hr - Monitor and replete lytes as needed - full liquid diabetic diet #Disposition - D/C pending clinical improvement - unable to fully confirm patient's medications as patient has not picked up medications from [facility] recently and [facility] proving diffucult to reach Visit type - Emergency Visit Emergency Visit: Yes ED Registration Date: 05/19/19 Care time: The patient presented to the Emergency Department on the above date and was hospitalized for further evaluation of their emergent condition. - New Patient This patient is new to me today: No - Critical Care Critical Care patient: No ATTENDING PHYSICIAN STATEMENT I saw and evaluated the patient. I reviewed the resident's note and discussed the case with the resident. I agree with the resident's findings and plan as documented. SUBJECTIVE: OBJECTIVE: ASSESSMENT AND PLAN:
[2019-05-20] MEDS: CARVEDILOL 6.25 MG TABLET (FP) PO SCH (21:35)
[2019-05-20] MEDS: traZODone HCL 100 MG TABLET (FP) PO SCH (21:35)
[2019-05-21] MEDS ORDERED: ACETAMINOPHEN 1000 MG/100 ML VIAL (NON FORMULARY) IVPB ONE (03:19)
[2019-05-21] MEDS ORDERED: MORPHINE SULFATE 2 MG/ML VIAL IVPUSH ONE ×3 (05:13→21:37)
[2019-05-21] MEDS: NIFEdipine E.R. 30 MG TABLET PO SCH (09:04)
[2019-05-21] MEDS: MULTIVITAMINS (DAILY MVI) TABLET (FP) PO SCH (09:04)
[2019-05-21] MEDS: CARVEDILOL 6.25 MG TABLET (FP) PO SCH (09:05)
[2019-05-21] MEDS: FOLIC ACID 1 MG TABLET (FP) PO SCH (09:05)
[2019-05-21] MEDS: THIAMINE HCL 100 MG TABLET (FP) PO SCH (09:05)
[2019-05-21] MEDS: busPIRone HCL 10 MG TABLET (FP) PO SCH (09:05)
[2019-05-21] MEDS: PANTOPRAZOLE SODIUM 40 MG VIAL IVPUSH SCH ×2 (09:05→21:56)
[2019-05-21 09:37] LABS: BILIRUBIN,TOTAL 0.5 mg/dL (0.2-1); BLOOD UREA NITROGEN 12.5 mg/dL (7-18); CALCIUM 8.6 mg/dL (8.5-10.1); CREATININE 1.5 mg/dL (0.55-1.3); POTASSIUM 4.1 mmol/L (3.5-5.1); TOT PROT 6.6 g/dl (6.4-8.2)
[2019-05-21] MEDS: LACTATED RINGERS SOLUTION 1,000 ML IV SCH ×2 (12:12→19:00)
--- NOTE | 2019-05-21 13:43 | PN.GI ---
GI Progress Note Subjective: Asked to re-evaluate for persisting abdominal pain. Pt seem ambulating in hallways, reporting persisting upper abdominal pain, worsening when eating/drinking, had cream of wheat and noted increased pain. Denies nausea, vomiting or fever/chills. Had some back pain though this has improved, denies worsening symptoms during hospitalization. Moving bowels, no blood reported. States last drink was during thanksgiving. - Objective Vital Signs: Vital Signs Temperature 98.7 F 05/21/19 06:00 Pulse Rate 75 05/21/19 06:00 Respiratory Rate 18 05/21/19 06:00 Blood Pressure 142/81 05/21/19 06:00 O2 Sat by Pulse Oximetry (%) 98 05/20/19 21:00 Constitutional: No Distress, Calm Cardiovascular: Yes: WNL, Regular Rate and Rhythm Respiratory: Yes: WNL, Regular, CTA Bilaterally ...Palpate: Yes: Other (Abd soft, tender on palpation in epigastrium and perim bilical region) Labs: CBC, BMP 05/19/19 06:32 05/21/19 07:20 Problem List - Problems (1) Abdominal pain Assessment/Plan: 64yo male h/o etoh abuse, chronic pancreatitis presenting with abdominal pain, mostly epigastric and periumbilical region, worsening with food. No nausea/vomiting. CT abd/pelvis revealing changes of chronic pancreatitis with ~6cm pseudocyst increased in size from prior imaging in 08/2018. No gallstones seen. Unclear of interval imaging at outside facility ([facility]). -Discussed CT findings with radiologist, Dr. 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 -Recommend NPO -Aggressive fluid hydration, could increase to 150-200cc/hr as tolerated -Check urine ethyl glucuronide to assess for recent etoh consumption -Check Tgs and IGG4 -Continue PPI -Hematology consultation in view of SVT/SMV/PVT -Recommend obtain outside records from [place] from GI Dr. Berrios to compare and determine if interval change in size of collection, though based on current symptoms not likely to require urgent intervention -Pending course pt would require close follow up with repeat CT (pancreatic protocol) or MRI/MRCP to re-evaluate likely in 4-[address] Lyons Code(s): R10.9 - UNSPECIFIED ABDOMINAL PAIN
[2019-05-21] MEDS ORDERED: LACTATED RINGERS SOLUTION 1,000 ML IV SCH (14:49)
--- NOTE | 2019-05-21 14:49 | PN ---
Teaching Attending Note Name of Resident: Kevyn Reyes ATTENDING PHYSICIAN STATEMENT I saw and evaluated the patient. I reviewed the resident's note and discussed the case with the resident. I agree with the resident's findings and plan as documented. SUBJECTIVE: Epigastric abdominal pain persisting, preventing him from eating. No vomiting. No diarrhea/melena/hematochezia. No fever/chills. OBJECTIVE: Afebrile, Hemodynamically Stable. Last Vital Signs Temp Pulse Resp BP Pulse Ox 98.7 F 92 H 18 138/90 98 05/21/19 06:00 05/21/19 10:00 05/21/19 10:00 05/21/19 10:00 05/20/19 21:00 Heart - S1, S2, RRR Lungs - clear to auscultation Abdomen - Soft, epigastric tenderness. Bowel Sounds normal. Extremities - no edema, no calf tenderness. Laboratory Results - last 24 hr 05/21/19 07:20 Sodium 132 L Potassium 4.1 Chloride 98 Carbon Dioxide 28 Anion Gap 7 L BUN 12.5 Creatinine 1.5 H Est GFR (CKD-EPI)AfAm 56.61 Est GFR (CKD-EPI)NonAf 48.84 Random Glucose 140 H Calcium 8.6 Total Bilirubin 0.5 AST 12 L ALT 15 Alkaline Phosphatase 48 Total Protein 6.6 Albumin 3.0 L Current Medications Generic Name Dose Route Start Last Admin Trade Name Freq PRN Reason Stop Dose Admin Acetaminophen 650 mg 05/20/19 08:54 Tylenol - PO Q6H PRN PAIN Buspirone HCl 10 mg 05/19/19 22:00 05/21/19 09:05 Buspar - PO 10 mg BID NATALIIA Administration Carvedilol 6.25 mg 05/20/19 22:00 05/21/19 09:05 Coreg - PO 6.25 mg BID NATALIIA Administration Folic Acid 1 mg 05/19/19 10:00 05/21/19 09:05 Folic Acid - PO 1 mg DAILY NATALIIA Administration Lactated Ringer's 1,000 mls @ 125 mls/hr 05/21/19 14:49 Lactated Ringers Solution IV ASDIR NATALIIA Insulin Aspart 1 vial 05/21/19 16:30 Novolog Vial Sliding Scale - SQ BIDAC NATALIIA Protocol Multivitamins/Minerals/Vitamin C 1 tab 05/19/19 10:00 05/21/19 09:04 Tab-A-Vit - PO 1 tab DAILY NATALIIA Administration Nifedipine 30 mg 05/19/19 19:30 05/21/19 09:04 Procardia Xl - PO 30 mg DAILY NATALIIA Administration Pantoprazole Sodium 40 mg 05/19/19 14:00 05/21/19 09:05 Protonix Iv IVPUSH 40 mg BID NATALIIA Administration Thiamine HCl 100 mg 05/19/19 10:00 05/21/19 09:05 Vitamin B1 - PO 100 mg DAILY NATALIIA Administration Trazodone HCl 300 mg 05/19/19 22:00 05/20/19 21:35 Desyrel - PO 300 mg HS NATALIIA Administration Home Medications Medication Instructions Recorded Buspirone HCl [Buspar -] 10 mg PO BID 08/17/18 Coreg 08/17/18 Nifedipine ER [Procardia XL -] 30 mg PO DAILY 08/17/18 Trazodone HCl 300 mg PO HS 08/17/18 Bupropion HCl [Bupropion HCl ER] 200 mg PO BID 08/19/18 Pantoprazole Sodium 40 mg PO BID #60 tablet. 08/22/18 ASSESSMENT/PLAN: 64 year old male with history of Depression, Alcohol abuse, admitted with abdominal pain. CT Abdomen - unremarkable except for chronic pancreatitis and pancreatic pseudocyst. 1. Acute Gastroenteritis Ongoing abdominal discomfort ? EGD to exclude PUD GI contacted for further recommendations. PPI BID 2. RADAMES - Creat 1.5. Likely pre-renal. Renal US negative. Intensify fluid regimen. Will consult Nephrology if no improvement in renal function. 3. Chronic Pancreatitis with Pancreatic Pseudocyst No urgent intervention required as per GI. Re-contacted for re-evaluation given ongoing pain and poor oral intake. MRI with contrast once renal function improves. 4. Depression - continue Buspirone, Trazodone, Bupropion. 5. HTN - continue Coreg, Nifedipine. 6. Hx Alcohol Abuse - no evidence of withdrawal MVI, Thiamine, Folate. DVT Px - Heparin SQ GI Px - PPI
[2019-05-21] MEDS ORDERED: LACTATED RINGERS SOLUTION 1,000 ML/1,000 ML INFUS.BAG IV SCH (15:00)
--- NOTE | 2019-05-21 16:29 | PN ---
Physical Exam: SUBJECTIVE: Patient seen and examined. Patient still complaining of abdominal pain. Repeatedly asking for toradol despite being told that we will not give him toradol due to concern for PUD. Otherwise denies chest pain, SOB, cough, fever, diarrhea. Patient states his Metformin was discontinued because his sugars were under control. OBJECTIVE: Vital Signs Period Temp Pulse Resp BP Sys/Bryan Pulse Ox Last 24 Hr 98.0 F-99.1 F 74-92 18-18 127-145/75-90 98 GENERAL: The patient is awake, alert, and fully oriented, in no acute distress. HEAD: Normal with no signs of trauma. EYES: EOMI ENT: MMM NECK: Trachea midline, full range of motion, supple. LUNGS: Breath sounds equal, clear to auscultation bilaterally, no wheezes, no crackles, no accessory muscle use. HEART: Regular rate and rhythm, S1, S2 without murmur, rub or gallop. ABDOMEN: Soft, mild diffuse tenderness to palpation mainly over epigastrum, nondistended, normoactive bowel sounds, no guarding EXTREMITIES: 2+ pulses, warm, well-perfused, no edema. NEUROLOGICAL: Cranial nerves II through XII grossly intact. Normal speech, gait not observed. PSYCH: Normal mood, normal affect. SKIN: Warm, dry, normal turgor, no rashes or lesions noted Laboratory Results - last 24 hr 05/21/19 07:20 Sodium 132 L Potassium 4.1 Chloride 98 Carbon Dioxide 28 Anion Gap 7 L BUN 12.5 Creatinine 1.5 H Est GFR (CKD-EPI)AfAm 56.61 Est GFR (CKD-EPI)NonAf 48.84 Random Glucose 140 H Calcium 8.6 Total Bilirubin 0.5 AST 12 L ALT 15 Alkaline Phosphatase 48 Total Protein 6.6 Albumin 3.0 L Active Medications Generic Name Dose Route Start Last Admin Trade Name Freq PRN Reason Stop Dose Admin Acetaminophen 650 mg 05/20/19 08:54 Tylenol - PO Q6H PRN PAIN Buspirone HCl 10 mg 05/19/19 22:00 05/21/19 09:05 Buspar - PO 10 mg BID NATALIIA Administration Carvedilol 6.25 mg 05/20/19 22:00 05/21/19 09:05 Coreg - PO 6.25 mg BID NATALIIA Administration Folic Acid 1 mg 05/19/19 10:00 05/21/19 09:05 Folic Acid - PO 1 mg DAILY NATALIIA Administration Heparin Sodium (Porcine) 5,000 unit 05/21/19 22:00 Heparin - SQ TID NATALIIA Lactated Ringer's 1,000 ml in 1,000 mls @ 500 mls/hr 05/21/19 15:00 Lactated Ringers Solution IV ASDIR NATALIIA Lactated Ringer's 1,000 mls @ 150 mls/hr 05/21/19 15:33 Lactated Ringers Solution IV ASDIR NATALIIA Insulin Aspart 1 vial 05/21/19 16:30 Novolog Vial Sliding Scale - SQ BIDAC [facility] Protocol Morphine Sulfate 3 mg 05/21/19 15:37 Morphine Injection - IVPUSH Q6H PRN PAIN LEVEL 6-10 Multivitamins/Minerals/Vitamin C 1 tab 05/19/19 10:00 05/21/19 09:04 Tab-A-Vit - PO 1 tab DAILY NATALIIA Administration Nifedipine 30 mg 05/19/19 19:30 05/21/19 09:04 Procardia Xl - PO 30 mg DAILY NATALIIA Administration Pantoprazole Sodium 40 mg 05/19/19 14:00 05/21/19 09:05 Protonix Iv IVPUSH 40 mg BID NATALIIA Administration Thiamine HCl 100 mg 05/19/19 10:00 05/21/19 09:05 Vitamin B1 - PO 100 mg DAILY NATALIIA Administration Trazodone HCl 300 mg 05/19/19 22:00 05/20/19 21:35 Desyrel - PO 300 mg HS NATALIIA Administration ASSESSMENT/PLAN: 64 y/o/m with PMHx of Chronic pancreatitis, HTN, depression, lower GI bleed, PTSD, TBI presenting today with abdominal pain likely 2/2 to gastroenteritis. #Abdominal pain 2/2 to gastroenteritis - Patient had similar episode of pain with relation to food earlier this week - CTA/P notes chronic pancreatitis, pancreatic pseudocyst - GI consulted - Dr. Huang - no acute intervention needed - follows with GI at [facility] - GI asked to see patient again due to continued abd pain - further review of imaging showed evidence of acute on chronic pancreatitis - Agressive IVF - Tylenol 650mg PO Q6H - No urgent need for antibiotics, will follow GI recommendations. - Protonix 40mg IV BID - close follow up, will need repeat CT (pancreatic protocol) or MRI/MRCP to re- evaluate likely in 4-6 weeks #RADAMES - Likely prerenal due to volume loss and dehydration - Renal U/S - no significant abnormalities ordered - monitor BUN/Cr #Hx of Alcohol abuse -Thiamine, folate, Multivitamin #DM - A1c - 7.6 - Patient was previously on Metformin, was discontinued because his sugars were under control as per patient - ISS #HTN - Continue Nifedipine and Coreg #Prophylaxis - SCDs #FEN - LR @ 150mls/hr - Monitor and replete lytes as needed - full liquid diabetic diet #Disposition - D/C pending clinical improvement - unable to fully confirm patient's medications as patient has not picked up medications from [facility] recently and [facility] proving diffucult to reach Visit type - Emergency Visit Emergency Visit: Yes ED Registration Date: 05/19/19 Care time: The patient presented to the Emergency Department on the above date and was hospitalized for further evaluation of their emergent condition. - New Patient This patient is new to me today: No - Critical Care Critical Care patient: No ATTENDING PHYSICIAN STATEMENT I saw and evaluated the patient. I reviewed the resident's note and discussed the case with the resident. I agree with the resident's findings and plan as documented. SUBJECTIVE: OBJECTIVE: ASSESSMENT AND PLAN:
[2019-05-21] MEDS: INSULIN SLIDING SCALE (NOVOLOG) 1 VIAL SQ SCH (17:15)
[2019-05-21] MEDS: morphine SULFATE 4 MG/ML VIAL IVPUSH PRN (18:25)
[2019-05-21] MEDS ORDERED: METOPROLOL TARTRATE 5 MG/5 ML VIAL IVPB PRN (21:16)
[2019-05-21] MEDS: METOPROLOL TARTRATE 5 MG/5 ML VIAL IVPB PRN (21:55)
[2019-05-21] MEDS: HEPARIN NA (PORCINE) 5,000 UNITS/ML 1ML VIAL SQ SCH (21:56)
[2019-05-22] MEDS: METOPROLOL TARTRATE 5 MG/5 ML VIAL IVPB PRN (06:24)
[2019-05-22] MEDS: morphine SULFATE 4 MG/ML VIAL IVPUSH PRN ×3 (06:24→18:55)
[2019-05-22] MEDS: HEPARIN NA (PORCINE) 5,000 UNITS/ML 1ML VIAL SQ SCH ×3 (06:25→21:15)
[2019-05-22] MEDS: LACTATED RINGERS SOLUTION 1,000 ML IV SCH ×2 (06:39→18:23)
[2019-05-22] MEDS: INSULIN SLIDING SCALE (NOVOLOG) 1 VIAL SQ SCH ×2 (06:47→18:24)
[2019-05-22 09:07] LABS: BLOOD UREA NITROGEN 10.9 mg/dL (7-18); CALCIUM 9.1 mg/dL (8.5-10.1); CREATININE 1.2 mg/dL (0.55-1.3); POTASSIUM 4.2 mmol/L (3.5-5.1)
--- NOTE | 2019-05-22 11:00 | PN ---
Teaching Attending Note Name of Resident: Kevyn Reyes ATTENDING PHYSICIAN STATEMENT I saw and evaluated the patient. I reviewed the resident's note and discussed the case with the resident. I agree with the resident's findings and plan as documented. SUBJECTIVE: Epigastric abdominal pain persisting, preventing him from eating. Pain improved with IV morphine. No vomiting. No diarrhea/melena/hematochezia. No fever/chills. OBJECTIVE: Afebrile, Hemodynamically Stable. Last Vital Signs Temp Pulse Resp BP Pulse Ox 98.0 F 91 H 18 141/93 97 05/22/19 06:00 05/22/19 06:00 05/22/19 06:00 05/22/19 06:00 05/21/19 21:00 Heart - S1, S2, RRR Lungs - clear to auscultation Abdomen - Soft, epigastric tenderness. Bowel Sounds normal. Extremities - no edema, no calf tenderness. Laboratory Results - last 24 hr 05/21/19 05/22/19 05/22/19 17:14 06:44 07:50 Sodium 134 L Potassium 4.2 Chloride 97 L Carbon Dioxide 27 Anion Gap 10 BUN 10.9 Creatinine 1.2 Est GFR (CKD-EPI)AfAm 74.14 Est GFR (CKD-EPI)NonAf 63.97 POC Glucometer 124 139 Random Glucose 118 H Calcium 9.1 Triglycerides 66 Current Medications Generic Name Dose Route Start Last Admin Trade Name Freq PRN Reason Stop Dose Admin Acetaminophen 650 mg 05/20/19 08:54 Tylenol - PO Q6H PRN PAIN Buspirone HCl 10 mg 05/19/19 22:00 05/21/19 09:05 Buspar - PO 10 mg BID NATALII[facility] Administration Carvedilol 6.25 mg 05/20/19 22:00 05/21/19 09:05 Coreg - PO 6.25 mg BID NATALIIA Administration Folic Acid 1 mg 05/19/19 10:00 05/21/19 09:05 Folic Acid - PO 1 mg DAILY [facility] Administration Heparin Sodium (Porcine) 5,000 unit 05/21/19 22:00 05/22/19 06:25 Heparin - SQ 5,000 unit TID [facility] Administration Lactated Ringer's 1,000 mls @ 150 mls/hr 05/21/19 16:45 05/22/19 06:39 Lactated Ringers Solution IV 150 mls/hr ASDIR [facility] Administration Insulin Aspart 1 vial 05/21/19 16:30 05/22/19 06:47 Novolog Vial Sliding Scale - SQ Not Given BIDAC [facility] Protocol Metoprolol Tartrate 5 mg 05/21/19 21:38 05/22/19 06:24 Lopressor Injection - IVPB 5 mg Q8H PRN Administration HYPERTENSION Morphine Sulfate 3 mg 05/21/19 15:37 05/22/19 06:24 Morphine Sulfate IVPUSH 3 mg Q6H PRN Administration PAIN LEVEL 6-10 Multivitamins/Minerals/Vitamin C 1 tab 05/19/19 10:00 05/21/19 09:04 Tab-A-Vit - PO 1 tab DAILY [facility] Administration Nifedipine 30 mg 05/19/19 19:30 05/21/19 09:04 Procardia Xl - PO 30 mg DAILY [facility] Administration Pantoprazole Sodium 40 mg 05/19/19 14:00 05/21/19 21:56 Protonix Iv IVPUSH 40 mg BID [facility] Administration Thiamine HCl 100 mg 05/19/19 10:00 05/21/19 09:05 Vitamin B1 - PO 100 mg DAILY [facility] Administration Trazodone HCl 300 mg 05/19/19 22:00 05/20/19 21:35 Desyrel - PO 300 mg HS [facility] Administration Home Medications Medication Instructions Recorded Nifedipine ER [Procardia XL -] 30 mg PO DAILY 08/17/18 Trazodone HCl 300 mg PO HS 08/17/18 Carvedilol [Coreg] 6.25 mg PO BID 05/22/19 ASSESSMENT/PLAN: 64 year old male with history of Depression, Alcohol abuse, admitted with abdominal pain. 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 1. Acute on Chronic Pancreatitis with Pancreatic Pseudocyst (larger compared to 2cm on prior scan at [place] 02/19/19) NPO/IV Fluids EGD deferred by GI Further management as per GI. PPI BID. 2. RADAMES - likely pre-renal, resolving with IV hydration. Renal US negative. 3. Depression - continue Buspirone, Trazodone, Bupropion. 5. HTN - continue Coreg, Nifedipine. 6. Hx Alcohol Abuse - no evidence of withdrawal MVI, Thiamine, Folate. 7. 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 Hematology consulted. DVT Px - Heparin SQ GI Px - PPI
[2019-05-22] MEDS ORDERED: PT OWN MED DRAWER 7, Y5N ONE (11:05)
[2019-05-22] MEDS: PANTOPRAZOLE SODIUM 40 MG VIAL IVPUSH SCH ×2 (11:36→21:15)
--- NOTE | 2019-05-22 12:17 | PN ---
Physical Exam: SUBJECTIVE: Patient seen and examined. Patient still complaining of some pain in his abd but states it is improving. OBJECTIVE: Vital Signs Period Temp Pulse Resp BP Sys/Bryan Pulse Ox Last 24 Hr 98.0 F-98.3 F 79-98 18-18 139-145/86-93 97 GENERAL: The patient is awake, alert, and fully oriented, in no acute distress. HEAD: Normal with no signs of trauma. EYES: EOMI ENT: MMM NECK: Trachea midline, full range of motion, supple. LUNGS: Breath sounds equal, clear to auscultation bilaterally, no wheezes, no crackles, no accessory muscle use. HEART: Regular rate and rhythm, S1, S2 without murmur, rub or gallop. ABDOMEN: Soft, mild diffuse tenderness to palpation mainly over epigastrum, nondistended, normoactive bowel sounds, no guarding EXTREMITIES: 2+ pulses, warm, well-perfused, no edema. NEUROLOGICAL: Cranial nerves II through XII grossly intact. Normal speech, gait not observed. PSYCH: Normal mood, normal affect. SKIN: Warm, dry, normal turgor, no rashes or lesions noted Laboratory Results - last 24 hr 05/21/19 05/22/19 05/22/19 17:14 06:44 07:50 Sodium 134 L Potassium 4.2 Chloride 97 L Carbon Dioxide 27 Anion Gap 10 BUN 10.9 Creatinine 1.2 Est GFR (CKD-EPI)AfAm 74.14 Est GFR (CKD-EPI)NonAf 63.97 POC Glucometer 124 139 Random Glucose 118 H Calcium 9.1 Triglycerides 66 Active Medications Generic Name Dose Route Start Last Admin Trade Name Freq PRN Reason Stop Dose Admin Acetaminophen 650 mg 05/20/19 08:54 Tylenol - PO Q6H PRN PAIN Buspirone HCl 10 mg 05/19/19 22:00 05/21/19 09:05 Buspar - PO 10 mg BID [facility] Administration Carvedilol 6.25 mg 05/20/19 22:00 05/21/19 09:05 Coreg - PO 6.25 mg BID [facility]II[facility] Administration Folic Acid 1 mg 05/19/19 10:00 05/21/19 09:05 Folic Acid - PO 1 mg DAILY [facility] Administration Heparin Sodium (Porcine) 5,000 unit 05/21/19 22:00 05/22/19 06:25 Heparin - SQ 5,000 unit TID [facility] Administration Lactated Ringer's 1,000 mls @ 150 mls/hr 05/21/19 16:45 05/22/19 06:39 Lactated Ringers Solution IV 150 mls/hr ASDIR [facility] Administration Insulin Aspart 1 vial 05/21/19 16:30 05/22/19 06:47 Novolog Vial Sliding Scale - SQ Not Given [facility] Protocol Metoprolol Tartrate 5 mg 05/21/19 21:38 05/22/19 06:24 Lopressor Injection - IVPB 5 mg Q8H PRN Administration HYPERTENSION Morphine Sulfate 3 mg 05/21/19 15:37 05/22/19 06:24 Morphine Sulfate IVPUSH 3 mg Q6H PRN Administration PAIN LEVEL 6-10 Multivitamins/Minerals/Vitamin C 1 tab 05/19/19 10:00 05/21/19 09:04 Tab-A-Vit - PO 1 tab DAILY [facility] Administration Nifedipine 30 mg 05/19/19 19:30 05/21/19 09:04 Procardia Xl - PO 30 mg DAILY [facility] Administration Pantoprazole Sodium 40 mg 05/19/19 14:00 05/22/19 11:36 Protonix Iv IVPUSH 40 mg BID [facility] Administration Thiamine HCl 100 mg 05/19/19 10:00 05/21/19 09:05 Vitamin B1 - PO 100 mg DAILY [facility] Administration Trazodone HCl 300 mg 05/19/19 22:00 05/20/19 21:35 Desyrel - PO 300 mg HS [facility] Administration ASSESSMENT/PLAN: 64 y/o/m with PMHx of Chronic pancreatitis, HTN, depression, lower GI bleed, PTSD, TBI presenting today with abdominal pain likely 2/2 to gastroenteritis. #Abdominal pain 2/2 to gastroenteritis - Patient had similar episode of pain with relation to food earlier this week - CT A/P notes chronic pancreatitis, pancreatic pseudocyst - GI consulted - Dr. Huang - no acute intervention needed - follows with [place] - Spoke with Dr. Berrios, [place]. Patient had a EGD and Colonoscopy on 02/18/19. Colonoscopy showed diverticolosis, recommended 5 year follow up. EGD showed esophageal varices without signs of bleeding. Also reviewed CT A/P scan [place]/19[place]19 [place] the [place] which measured a pancreatic pseudocyst at 2.2cm (compared to >6cm on scan here) - GI asked to see patient again due to continued abd pain - further review of imaging showed evidence of acute on chronic pancreatitis - Agressive IVF - Tylenol 650mg PO Q6H - No urgent need for antibiotics, will follow GI recommendations. - Protonix 40mg IV BID - close follow up, will need repeat CT (pancreatic protocol) or MRI/MRCP to re- evaluate likely in 4-6 weeks - Splenic vein thrombosis mentioned on CT A/P. This was present on scan CT A/P scan on 02/19/19 and is chronic - Heme/Onc consulted #RADAMES - resolved - Likely prerenal due to volume loss and dehydration - Renal U/S - no significant abnormalities ordered - Cr within normal limits now #Hx of Alcohol abuse -Thiamine, folate, Multivitamin #DM - A1c - 7.6 - Patient was previously on Metformin, was discontinued because his sugars were under control as per patient - ISS #HTN - Continue Nifedipine and Coreg #Prophylaxis - SCDs #FEN - LR @ 150mls/hr - Monitor and replete lytes as needed - NPO except for meds #Disposition - D/C pending clinical improvement, will need GI follow up after discharge Visit type - Emergency Visit Emergency Visit: Yes ED Registration Date: 05/19/19 Care time: The patient presented to the Emergency Department on the above date and was hospitalized for further evaluation of their emergent condition. - New Patient This patient is new to me today: No - Critical Care Critical Care patient: No ATTENDING PHYSICIAN STATEMENT I saw and evaluated the patient. I reviewed the resident's note and discussed the case with the resident. I agree with the resident's findings and plan as documented. SUBJECTIVE: OBJECTIVE: ASSESSMENT AND PLAN:
--- NOTE | 2019-05-22 12:57 | CONSULT ---
Consultation: Heme-onc resident note REQUESTING PROVIDER: Dr Ursula Brock CONSULT REQUEST: We have been asked to medically evaluate this patient for SMV thrombosis HISTORY OF PRESENT ILLNESS: 64 y/o M with PMH chronic pancreatitis, HTN, depression, LGIB, PTSD, TBI who initially presented for b/l flank pain and has been tx for gastroenteritis. However, on CTAP, pt was noted to have multiple pancreatic calcifications, thick-walled cystic lesion inferior to the pancreatic head measuring 6.4x6.3x6.1cm suggestive of pseudocyst. Pancreatic duct dilated to 14mm, and with atrophy of body and tail. Per primary team, lesion was 2.2cm in Feb 2019. Was also noted to have possible splenic v. thrombosis on imaging, and per IR. Pt has a hx of esophageal varices, however states he has never had banding, or other tx, and has never had bleeding from varices. Pt currently complaining of bloating, otherwise without pain. Denies GALEANA, fever, chills, chest pain or pressure or changes in urinary or bowel function. We are consulted for SMV thrombosis management. Pt denies any past hx of clotting d/o, or familial d/o. PMH: as above Psxh: L hip replacement meds: as in chart allergies: lisinopril FH: htn, aneurysms - maternal side, htn - paternal side SH: smoked in past, quit in . used to smoke <1/2 ppd per pt. used to drink significant amounts ("gallon") still drinks but states he drinks 1x/month, 1 pint of liquor. concerning drug use "that was a long time ago" PHYSICAL EXAMINATION Vital Signs - 24 hr 05/21/19 05/22/19 05/22/19 21:55 00:00 06:00 Temperature 98.0 F 98.0 F Pulse Rate 98 H 96 H 91 H Respiratory 18 18 Rate Blood Pressure 143/92 143/92 141/93 O2 Sat by Pulse Oximetry (%) general: resting in bed, in NAD HEENT: NCAT neck: supple, no cervical LIZBETH cardio: S1, S2 RRR. no r/m/g pulm: CTA b/l. no accessory m usage abdomen: +diffusely ttp in all quadrants, no distension. LE: 2+ pulses, no edema neuro: Charge Master Specialist 2-12 grossly intact. good ROM in UE, LE. Laboratory Results - last 24 hr 05/21/19 05/22/19 05/22/19 17:14 06:44 07:50 Sodium 134 L Potassium 4.2 Chloride 97 L Carbon Dioxide 27 Anion Gap 10 BUN 10.9 Creatinine 1.2 Est GFR (CKD-EPI)AfAm 74.14 Est GFR (CKD-EPI)NonAf 63.97 POC Glucometer 124 139 Random Glucose 118 H Calcium 9.1 Triglycerides 66 Active Medications Generic Name Dose Route Start Last Admin Trade Name Freq PRN Reason Stop Dose Admin Acetaminophen 650 mg 05/20/19 08:54 Tylenol - PO Q6H PRN PAIN Buspirone HCl 10 mg 05/19/19 22:00 05/21/19 09:05 Buspar - PO 10 mg BID NATALIIA Administration Carvedilol 6.25 mg 05/20/19 22:00 05/21/19 09:05 Coreg - PO 6.25 mg BID NATALIIA Administration Folic Acid 1 mg 05/19/19 10:00 05/21/19 09:05 Folic Acid - PO 1 mg DAILY [facility] Administration Heparin Sodium (Porcine) 5,000 unit 05/21/19 22:00 05/22/19 06:25 Heparin - SQ 5,000 unit TID [facility] Administration Lactated Ringer's 1,000 mls @ 150 mls/hr 05/21/19 16:45 05/22/19 06:39 Lactated Ringers Solution IV 150 mls/hr ASDIR [facility] Administration Insulin Aspart 1 vial 05/21/19 16:30 05/22/19 06:47 Novolog Vial Sliding Scale - SQ Not Given BIDAC [facility] Protocol Metoprolol Tartrate 5 mg 05/21/19 21:38 05/22/19 06:24 Lopressor Injection - IVPB 5 mg Q8H PRN Administration HYPERTENSION Morphine Sulfate 3 mg 05/21/19 15:37 05/22/19 12:32 Morphine Sulfate IVPUSH 3 mg Q6H PRN Administration PAIN LEVEL 6-10 Multivitamins/Minerals/Vitamin C 1 tab 05/19/19 10:00 05/21/19 09:04 Tab-A-Vit - PO 1 tab DAILY NATALIIA Administration Nifedipine 30 mg 05/19/19 19:30 05/21/19 09:04 Procardia Xl - PO 30 mg DAILY NATALIIA Administration Pantoprazole Sodium 40 mg 05/19/19 14:00 05/22/19 11:36 Protonix Iv IVPUSH 40 mg BID NATALIIA Administration Thiamine HCl 100 mg 05/19/19 10:00 05/21/19 09:05 Vitamin B1 - PO 100 mg DAILY NATALIIA Administration Trazodone HCl 300 mg 05/19/19 22:00 05/20/19 21:35 Desyrel - PO 300 mg HS [facility]ALII[facility] Administration ASSESSMENT/PLAN: 64 y/o M with PMH chronic pancreatitis, HTN, depression, LGIB, PTSD, TBI who initially presented for b/l flank pain and has been tx for gastroenteritis. However, on CTAP, pt was noted to have multiple pancreatic calcifications, thick-walled cystic lesion inferior to the pancreatic head measuring 6.4x6.3x6.1cm suggestive of pseudocyst. Pancreatic duct dilated to 14mm, and with atrophy of body and tail. Per primary team, lesion was 2.2cm in Feb 2019. Was also noted to have possible splenic v. thrombosis on imaging. #?chronic splenic v. thrombosis #pancreatic pseudocyst #acute on chronic pancreatitis likely 2/2 EtOH #HTN #PTSD #Depression #TBI -pt with evidence of splenic v. thrombosis, which appears chronic -also has hx of esophageal varices, but per pt, has never required banding or tx -based on risks vs. benefits of a/c, while a/c would prevent extension of thrombus and recurrent thrombi, risk of variceal bleed is greater. also as pt is still continuing to drink, would not recommend a/c at this time -?r/o malignancy, however pseudocysts rarely represent CA. may require ?drainage if painful or infected -would order PT, PTT plan discussed with attending, Dr. Emerita Driscoll MD PGY-3 Heme-onc team Dispo: We will continue to follow the patient. Thank you for this consultative opportunity. Visit type - Emergency Visit Emergency Visit: No - New Patient This patient is new to me today: Yes Date on this admission: 05/22/19 - Critical Care Critical Care patient: No
--- NOTE | 2019-05-22 15:14 | PN.GI ---
GI Progress Note Subjective: Communicated with medical educator: 02/27: patient had CT scan at [place] revealing 2cm pancreatic cyst. CT scan from [facility] 08/28 did not show cyst. Now has 6cm - Objective Vital Signs: Vital Signs Temperature 98.0 F 05/22/19 06:00 Pulse Rate 91 H 05/22/19 06:00 Respiratory Rate 18 05/22/19 06:00 Blood Pressure 141/93 05/22/19 06:00 O2 Sat by Pulse Oximetry (%) 97 05/21/19 21:00 Constitutional: Calm Eyes: No: Sclera Icterus Cardiovascular: Yes: Regular Rate and Rhythm Respiratory: Yes: CTA Bilaterally Gastrointestinal Inspection: No: Distention ...Auscultate: Yes: Normoactive Bowel Sounds ...Palpate: Yes: Soft, Tenderness (Mild TTP upper abdomen). No: Guarding ...Percussion: No: Tympanitic Edema: No (No LE edema) Neurological: Yes: Alert Labs: CBC, BMP 05/19/19 06:32 05/22/19 07:50 Hepatic Panel Total Bilirubin 0.5 mg/dL (0.2-1) 05/21/19 07:20 Direct Bilirubin 0.2 mg/dL (0.0-0.2) 05/19/19 06:32 AST 12 U/L (15-37) L 05/21/19 07:20 ALT 15 U/L (13-61) 05/21/19 07:20 Alkaline Phosphatase 48 U/L (45-117) 05/21/19 07:20 Albumin 3.0 g/dl (3.4-5.0) L 05/21/19 07:20 Problem List - Problems (1) Pancreatic pseudocyst Assessment/Plan: Increased in size from 02/28. DOes admit to intermittently drinking alcohol. No early ssatiety or vomiting and states that he is overall improving clinically. If continued improvement, advance to clears. Will need close follow-up with his [place] commercial loan closer. If still dependent on opiate analgesia, should arrange transfer to [place] as he will likely need to be assessed for cyst gastrostomy via EUS, further eval of pancreatic findings Advised need for complete alsohol cessation Knows of diagnosis of esophageal varcies. States his commercial loan closer put him on coreg for this reason Ordered MRI of abdomen with and without contrast with MRCP. Code(s): K86.3 - PSEUDOCYST OF PANCREAS
--- NOTE | 2019-05-22 18:28 | PN ---
Teaching Attending Note Name of Resident: Tri Driscoll ATTENDING PHYSICIAN STATEMENT I saw and evaluated the patient. I reviewed the resident's note and discussed the case with the resident. I agree with the resident's findings and plan as documented. SUBJECTIVE: Doing well. Has abdominal pain but now is "less radiant" and focused. Still NPO. Mentioned he wants to eat OBJECTIVE: Last Vital Signs Temp Pulse Resp BP Pulse Ox 98.2 F 79 18 147/94 97 05/22/19 15:00 05/22/19 15:00 05/22/19 15:00 05/22/19 15:05/21/19 21:00 General: NAD HEENT: MMM CVS: S1, S2 Abdomen: Soft, + Tenderness (epigastrium) Extremities: No edema Neuro: Moves all extremities Psych: Conversant. Appropriate ASSESSMENT AND PLAN: 64 y/o gentleman with PMH chronic pancreatitis, HTN, depression, LGIB, PTSD, TBI who initially presented for b/l flank pain and has been tx for gastroenteritis. However, on CTAP, pt was noted to have multiple pancreatic calcifications, thick-walled cystic lesion inferior to the pancreatic head measuring 6.4x6.3x6.1cm suggestive of pseudocyst. Pancreatic duct dilated to 14mm, and with atrophy of body and tail. Per primary team, lesion was 2.2cm in Feb 2019. Was also noted to have possible splenic v. thrombosis on imaging for which hematology has been consulted Recommend: 1) Possible chronic splenic vein thrombosis. Given than risk of bleeding (due to esophageal varices) exceeds benefit of anticoagulation at this time, would recommend to monitor carefully off anticoagulation 2) MR-V to determine if true splenic vein thrombosis can be considered outpatient. 3) If any symptoms of progressive thrombosis were to develop will re-assess need for anticoagulation 4) Agree with pancreatic cyst evaluation [facility] 5) Rest per Dr. Driscoll's note 6) Thank you for this consultation
[2019-05-23] MEDS: LACTATED RINGERS SOLUTION 1,000 ML IV SCH ×3 (00:48→17:25)
[2019-05-23] MEDS: morphine SULFATE 4 MG/ML VIAL IVPUSH PRN ×3 (01:05→13:32)
[2019-05-23] MEDS: HEPARIN NA (PORCINE) 5,000 UNITS/ML 1ML VIAL SQ SCH ×2 (05:55→13:33)
[2019-05-23] MEDS: INSULIN SLIDING SCALE (NOVOLOG) 1 VIAL SQ SCH ×2 (06:01→17:25)
[2019-05-23 06:22] VITALS: PULSE 87
[2019-05-23 08:45] LABS: HEMATOCRIT 37.9 % (35.4-49); HEMOGLOBIN 12.9 GM/dL (11.7-16.9); MCH 28.2 pg (25.7-33.7); MCHC 33.9 g/dl (32.0-35.9); MEAN CELL VOLUME 83.2 fl (80-96); MEAN PLT VOLUME 7.9 fl (7.5-11.1); PLATELET COUNT 192 K/MM3 (134-434); RBC 4.55 M/mm3 (4.00-5.60); RDW 19.2 % (11.9-15.9); WHITE BLOOD COUNT 3.7 K/mm3 (4.0-10.0)
[2019-05-23 08:50] LABS: INR 1.17 (0.83-1.09); PROTHROMBIN TIME (PATIENT) 13.8 SEC (9.7-13.0)
[2019-05-23 08:53] LABS: ACTIVATED PTT 36.9 SECONDS (25.2-36.5)
[2019-05-23 09:06] LABS: ALBUMIN 3.2 g/dl (3.4-5.0); BILIRUBIN,TOTAL 0.3 mg/dL (0.2-1); CREATININE 1.3 mg/dL (0.55-1.3); POTASSIUM 4.1 mmol/L (3.5-5.1)
[2019-05-23] MEDS: PANTOPRAZOLE SODIUM 40 MG VIAL IVPUSH SCH (10:46)
--- NOTE | 2019-05-23 14:09 | PN ---
Teaching Attending Note Name of Resident: Kevyn Reyes ATTENDING PHYSICIAN STATEMENT I saw and evaluated the patient. I reviewed the resident's note and discussed the case with the resident. I agree with the resident's findings and plan as documented. SUBJECTIVE: Epigastric abdominal pain persisting, worse on eating. No vomiting. No diarrhea/melena/hematochezia. No fever/chills. OBJECTIVE: Afebrile, Hemodynamically Stable. Last Vital Signs Temp Pulse Resp BP Pulse Ox 98.4 F 87 18 147/78 97 05/23/19 06:00 05/23/19 06:00 05/23/19 06:00 05/23/19 06:00 05/22/19 09:00 Heart - S1, S2, RRR Lungs - clear to auscultation Abdomen - Soft, epigastric tenderness. Bowel Sounds normal. Extremities - no edema, no calf tenderness. Laboratory Results - last 24 hr 05/21/19 05/22/19 05/23/19 18:20 12:15 05:50 WBC RBC Hgb Hct MCV MCH MCHC RDW Plt Count MPV PT with INR INR PTT (Actin FS) Sodium Potassium Chloride Carbon Dioxide Anion Gap BUN Creatinine Est GFR (CKD-EPI)AfAm Est GFR (CKD-EPI)NonAf POC Glucometer 98 Random Glucose Calcium Total Bilirubin AST ALT Alkaline Phosphatase Total Protein Albumin U Ethyl Glucuronide Negative IgG Cancelled IgG4 Cancelled IgA Cancelled IgM Cancelled 05/23/19 05/23/19 05/23/19 07:50 07:50 07:50 WBC 3.7 L RBC 4.55 Hgb 12.9 Hct 37.9 MCV 83.2 MCH 28.2 MCHC 33.9 RDW 19.2 H Plt Count 192 MPV 7.9 PT with INR 13.80 H INR 1.17 H PTT (Actin FS) 36.9 H Sodium 133 L Potassium 4.1 Chloride 98 Carbon Dioxide 25 Anion Gap 11 BUN 13.0 Creatinine 1.3 Est GFR (CKD-EPI)AfAm 67.30 Est GFR (CKD-EPI)NonAf 58.07 POC Glucometer Random Glucose 93 Calcium 9.0 Total Bilirubin 0.3 AST 12 L ALT 15 Alkaline Phosphatase 51 Total Protein 7.0 Albumin 3.2 L U Ethyl Glucuronide IgG IgG4 IgA IgM Current Medications Generic Name Dose Route Start Last Admin Trade Name Freq PRN Reason Stop Dose Admin Acetaminophen 650 mg 05/20/19 08:54 Tylenol - PO Q6H PRN PAIN Buspirone HCl 10 mg 05/19/19 22:00 05/21/19 09:05 Buspar - PO 10 mg BID [facility] Administration Carvedilol 6.25 mg 05/20/19 22:00 05/21/19 09:05 Coreg - PO 6.25 mg BID [facility] Administration Folic Acid 1 mg 05/19/19 10:00 05/21/19 09:05 Folic Acid - PO 1 mg DAILY [facility] Administration Heparin Sodium (Porcine) 5,000 unit 05/21/19 22:00 05/23/19 13:33 Heparin - SQ 5,000 unit TID [facility] Administration Lactated Ringer's 1,000 mls @ 150 mls/hr 05/21/19 16:45 05/23/19 08:00 Lactated Ringers Solution IV 150 mls/hr ASDIR [facility] Administration Insulin Aspart 1 vial 05/21/19 16:30 05/23/19 06:01 Novolog Vial Sliding Scale - SQ Not Given BIDAC [facility] Protocol Metoprolol Tartrate 5 mg 05/21/19 21:38 05/22/19 06:24 Lopressor Injection - IVPB 5 mg Q8H PRN Administration HYPERTENSION Morphine Sulfate 3 mg 05/21/19 15:37 05/23/19 13:32 Morphine Sulfate IVPUSH 3 mg Q6H PRN Administration PAIN LEVEL 6-10 Multivitamins/Minerals/Vitamin C 1 tab 05/19/19 10:00 05/21/19 09:04 Tab-A-Vit - PO 1 tab DAILY [facility] Administration Nifedipine 30 mg 05/19/19 19:30 05/21/19 09:04 Procardia Xl - PO 30 mg DAILY [facility] Administration Pantoprazole Sodium 40 mg 05/19/19 14:00 05/23/19 10:46 Protonix Iv IVPUSH 40 mg BID [facility] Administration Thiamine HCl 100 mg 05/19/19 10:00 05/21/19 09:05 Vitamin B1 - PO 100 mg DAILY [facility] Administration Trazodone HCl 300 mg 05/19/19 22:00 05/20/19 21:35 Desyrel - PO 300 mg HS [facility] Administration Home Medications Medication Instructions Recorded Nifedipine ER [Procardia XL -] 30 mg PO DAILY 08/17/18 Trazodone HCl 300 mg PO HS 08/17/18 Carvedilol [Coreg] 6.25 mg PO BID 05/22/19 ASSESSMENT/PLAN: 64 year old male with history of Depression, Alcohol abuse, admitted with abdominal pain. 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 1. Acute on Chronic Pancreatitis with Pancreatic Pseudocyst (larger compared to 2cm on prior scan at [place] 02/19/19) NPO/IV Fluids EGD deferred by GI. PPI BID. GI recommends MRCP and possible transfer to [place] for ongoing investigation/management including possible cyst gastrostomy via EUS. Patient's accountant supervisor contacted and accepts patient for transfer to [place]. 2. RADAMES - likely pre-renal, resolved with IV hydration. Renal US negative. 3. Depression - continue Buspirone, Trazodone, Bupropion. 5. HTN - continue Coreg, Nifedipine. 6. Hx Alcohol Abuse - no evidence of withdrawal MVI, Thiamine, Folate. 7. 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 Hematology evaluated and given presence of varices on last EGD, the recommendation is to defer anticoagulation due to bleeding risk. 8. Esophageal Varices on prior EGD at [place]. No Cirrhotic changes on current Liver imaging. For MRCP. No evidence of bleeding currently. GI Px - PPI Planning transfer to [place].
--- NOTE | 2019-05-23 14:44 | DS ---
Physical Exam: SUBJECTIVE: Patient seen and examined. Still complaining of abd pain and requesting pain medication. OBJECTIVE: Vital Signs Period Temp Pulse Resp BP Sys/Bryan Pulse Ox Last 24 Hr 97.9 F-98.8 F 78-104 18-18 147-158/78-94 PHYSICAL EXAM GENERAL: The patient is awake, alert, and fully oriented, in no acute distress. HEAD: Normal with no signs of trauma. EYES: EOMI ENT: MMM NECK: Trachea midline, full range of motion, supple. LUNGS: Breath sounds equal, clear to auscultation bilaterally, no wheezes, no crackles, no accessory muscle use. HEART: Regular rate and rhythm, S1, S2 without murmur, rub or gallop. ABDOMEN: Soft, mild diffuse tenderness to palpation mainly over epigastrum, nondistended, normoactive bowel sounds, no guarding EXTREMITIES: 2+ pulses, warm, well-perfused, no edema. NEUROLOGICAL: Cranial nerves II through XII grossly intact. Normal speech, gait not observed. PSYCH: Normal mood, normal affect. SKIN: Warm, dry, normal turgor, no rashes or lesions noted LABS Laboratory Results - last 24 hr 05/21/19 05/22/19 05/23/19 18:20 12:15 05:50 WBC RBC Hgb Hct MCV MCH MCHC RDW Plt Count MPV PT with INR INR PTT (Actin FS) Sodium Potassium Chloride Carbon Dioxide Anion Gap BUN Creatinine Est GFR (CKD-EPI)AfAm Est GFR (CKD-EPI)NonAf POC Glucometer 98 Random Glucose Calcium Total Bilirubin AST ALT Alkaline Phosphatase Total Protein Albumin U Ethyl Glucuronide Negative IgG Cancelled IgG4 Cancelled IgA Cancelled IgM Cancelled 05/23/19 05/23/19 05/23/19 07:50 07:50 07:50 WBC 3.7 L RBC 4.55 Hgb 12.9 Hct 37.9 MCV 83.2 MCH 28.2 MCHC 33.9 RDW 19.2 H Plt Count 192 MPV 7.9 PT with INR 13.80 H INR 1.17 H PTT (Actin FS) 36.9 H Sodium 133 L Potassium 4.1 Chloride 98 Carbon Dioxide 25 Anion Gap 11 BUN 13.0 Creatinine 1.3 Est GFR (CKD-EPI)AfAm 67.30 Est GFR (CKD-EPI)NonAf 58.07 POC Glucometer Random Glucose 93 Calcium 9.0 Total Bilirubin 0.3 AST 12 L ALT 15 Alkaline Phosphatase 51 Total Protein 7.0 Albumin 3.2 L U Ethyl Glucuronide IgG IgG4 IgA IgM HOSPITAL COURSE: Date of Admission:05/19/19 Date of Discharge: 05/23/19 64 y/o/m with PMHx of Chronic pancreatitis, HTN, depression, lower GI bleed, PTSD, TBI presented to the ED due to abdominal pain that was thought to be due to gastroenteritis. CT A/P showed chronic pancreatitis and a pancreatic pseudocyst. GI saw the patient and stated that no acute intervention was needed but was asked to see the patient again because patient continued to have abd pain and diagnosed with patient with acute pancreatitis after reviewing imaging again with radiology. I spoke with patient's GI doctor at the [facility] and was told that the pancreatic pseudocyst in 02/27 only measured 2.2cm and now measures >6cm. GI recommended that if patient continued to require IV analgesia then to consider transfer for cyst gastrostomy with EUS. Patient continued to request IV pain medication due to abd pain. Patient was on agressive IVF due to acute pancreatitis. On imaging splenic vein was noted to be thrombosed, imaging on 02/27 showed thrombosis as well. Heme/Onc saw the patient and as patient has history of varices stated that the risk of bleeding outweighs benefits from anticoagulation and would not start anticoagulation at this time. Patient had an RADAMES on admission which resolved with hydration. Renal U/S did not show any significant abnormalities. Patient A1c noted to be 7.6 and was previously on Metformin but was discontinued because his sugars were under control as per patient. Started on ISS while here. Patient's GI doctor at [facility] requested transfer for further workup. Patient accepted for transfer to [facility]. Minutes to complete discharge: 36 Discharge Summary Problems reviewed: Yes Reason For Visit: CHRONIC PANCREATITIS,PSEUDOCYST OF PANCREAS Current Active Problems Abdominal pain (Acute) Pancreatic pseudocyst (Acute) Pancreatitis (Acute) Hospital Course: 64 year old M with PMH of EtOH abuse came in with diffuse abdominal pain after eating a chicken broth . Of note this was second episode with same chicken broth. Patient denied any nausea or vomiting, and no bloody stools, melena. CT Abdomen was done which was unremarkable except for incidental pancreatic pseudocyst. 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 Patient also has chronic pancreatitis on CT. Patient tolerated oral diet and will follow up with his GI and PMD within 1 week in OR hospital. Will return to ED if any new symptoms or concerns arise. Encourage hydration and avoid NSAIDS. Condition: Stable - Instructions Diet, Activity, Other Instructions: You were admitted to the hospital due to abdominal pain. You were seen by gastroenterology here who diagnosed you with acute pancreatitis. On imaging you were found to have a pancreatic pseudocyst greater than 6cm in size, which is enlarged from your imaging at the OR in 02/27. Your GI doctor at the OR requested that you be transferred to the OR for further workup. You are being transferred to the [facility] for continued care. Referrals: ON STAFF,NOT [Non Staff, Medical] - Disposition: TRANSFER ACUTE CARE/OTHER HOSP - Home Medications Comprehensive Discharge Medication List: Ambulatory Orders Nifedipine ER [Procardia XL -] 30 mg PO DAILY 08/17/18 Trazodone HCl 300 mg PO HS 08/17/18 Carvedilol [Coreg] 6.25 mg PO BID 05/22/19 This patient is new to me today: No Emergency Visit: Yes ED Registration Date: 05/19/19 Care time: The patient presented to the Emergency Department on the above date and was hospitalized for further evaluation of their emergent condition. Critical Care patient: No - Discharge Referral Referred to [facility] No ATTENDING PHYSICIAN STATEMENT I saw and evaluated the patient. I reviewed the resident's note and discussed the case with the resident. I agree with the resident's findings and plan as documented. SUBJECTIVE: OBJECTIVE: ASSESSMENT AND PLAN:
[2019-05-23 15:56] VITALS: BP 142/97; TEMP 98.2
== END 2019-05-23 19:21 | disposition short-term general hospital (02) | DRG 439 ==
LOC: JER 20:19 → JERBED 05-19 03:48 → J5S 05-19 18:34
PROVIDERS: ADMIT Internal Medicine
DX: K85.90 Acute pancreatitis without necrosis or infection, unspecified (principal); K86.2 Cyst of pancreas; I85.00 Esophageal varices without bleeding; N17.9 Acute kidney failure, unspecified; K86.1 Other chronic pancreatitis; K52.9 Noninfective gastroenteritis and colitis, unspecified; F10.10 Alcohol abuse, uncomplicated; I10 Essential (primary) hypertension; E88.09 Other disorders of plasma-protein metabolism, not elsewhere classified; D73.5 Infarction of spleen; F32.9 Major depressive disorder, single episode, unspecified; E86.0 Dehydration
CPT/HCPCS: 36415; 71045-TC-FY; 74177-TC; 76775-TC; 80048; 80053; 81003; 82247; 82248; 82436; 82550; 82784; 82787; 82962; 83036; 83605; 83690; 84133; 84300; 84478; 84484; 85025; 85027; 85610; 85730; 87086; 93005; 93010; 99285-25; J0131; J1644; Q9967

== ENCOUNTER 2019-12-12 11:12 | Emergency (ER) | payer OTHER ==
[2019-12-12 11:27] VITALS: BP 163/95; PULSE 95; TEMP 97.9; BMI 26.6
--- NOTE | 2019-12-12 11:36 | PDOC ---
History of Present Illness - General Chief Complaint: Alcohol intoxication Stated Complaint: INTOX Time Seen by Provider: 12/12/19 11:22 - History of Present Illness Initial Comments: 12/12/19 11:31 pt presents to the ED after found intoxicated in his apartment by his addiction social worker. As per patient and addiction social worker, he was supposed to be admitted to alcohol detox at the [place]. The patient and the addiction social worker apparently had a misunderstanding about how transport to the [place] would be arranged. The addiction social worker then called EMS with the belief that the patient could be transferred from [place] to the [place] for detox. The patient admits to drinking today, and to chronic daily ETOH use. He is calm, cooperative and oriented and denies physical or psychiatric complaints. 12/12/19 11:36 Past History - Medical History Allergies/Adverse Reactions: Allergies Allergy/AdvReac Type Severity Reaction Status Date / Time lisinopril Allergy Verified 12/12/19 11:14 Home Medications: Ambulatory Orders Nifedipine ER [Procardia XL -] 30 mg PO DAILY 08/17/18 Trazodone HCl 300 mg PO HS 08/17/18 Carvedilol [Coreg] 6.25 mg PO BID 05/22/19 Anemia: No Asthma: No Cancer: No Cardiac Disorders: Yes CVA: No COPD: Yes CHF: No Dementia: No Diabetes: No GI Disorders: Yes (gi bleed) Disorders: No HTN: Yes Hypercholesterolemia: No Liver Disease: No Psychiatric Problems: Yes (depression, alcohol abuse) Seizures: No Thyroid Disease: No - Surgical History Abdominal Surgery: No Appendectomy: No Cardiac Surgery: No Cholecystectomy: No Lung Surgery: No Neurologic Surgery: No Orthopedic Surgery: Yes (left hip replacement) - Psycho-Social/Smoking History Smoking History: Never smoked Have you smoked in the past 12 months: No If you are a former smoker, when did you quit?: 1988 Information on smoking cessation initiated: No - Substance Abuse Hx (Audit-C & DAST Scrn) How often the patient has a drink containing alcohol: 4 0r more times/wk Number of drinks the patient has on a typical day: 7 to 9 How often the patient has six or more drinks on one occasion: Daily or almost daily Score: In Men: 4 or > Positive; In Women: 3 or > Positive: 11 Screen Result (Pos requires Nsg. Audit-10AR): Positive In the last yr the pt used illegal drug/Rx for NonMed reason: No Score: Yes response is considered Positive: 0 Screen Result (Positive result requires Nsg. DAST-10): Negative Review of Systems - Review of Systems Able to Perform ROS?: Yes Is the patient limited Luxem[place]ish proficient: No Constitutional: No: Symptoms Reported, See HPI, Chills, Diaphoresis, Fever, Loss of Appetite, Malaise, Night Sweats, Weakness, Weight Stable, Unintentional Wgt. Loss, Unexplained wgt Loss, Other HEENTM: No: Symptoms Reported, See HPI, Eye Pain, Blurred Vision, Tearing, Recent change in vision, Double Vision, Cataracts, Ear Pain, Ocular Prothesis, Ear Discharge, Nose Pain, Nose Congestion, Tinnitus, Nose Bleeding, Hearing Loss, Throat Pain, Throat Swelling, Mouth Pain, Dental Problems, Difficulty Swallowing, Mouth Swelling, Other Respiratory: No: Symptoms reported, See HPI, Cough, Orthopnea, Shortness of Breath, SOB with Exertion, SOB at Rest, Stridor, Wheezing, Productive cough, Hemoptysis, Other Cardiac (ROS): No: Symptoms Reported, See HPI, Chest Pain, Edema, Irregular Heart Rate, Lightheadedness, Palpitations, Syncope, Chest Tightness, Other ABD/GI: No: Symptoms Reported, See HPI, Abdominal Distended, Abd. Pain w/ defecation, Blood Streaked Bowels, Constipated, Diarrhea, Difficulty Swallowing, Nausea, Poor Appetite, Poor Fluid Intake, Rectal Bleeding, Vomiting, Indigestion, Abdominal cramping, Tarry Stools, Other : No: Symptoms Reported, See HPI, Burning, Dysuria, Discharge, Frequency, Flank Pain, Hematuria, Incontinence, Pain, Urgency, Testicular Mass, Testicular Swelling, Lesions, Testicular Pain, Other Musculoskeletal: No: Symptoms Reported, See HPI, Back Pain, Gout, Joint Pain, Joint Swelling, Muscle Pain, Muscle Weakness, Neck Pain, Joint Stiffness, Other Integumentary: No: Symptoms Reported, See HPI, Bruising, Change in Color, Change in Hair/Nails, Dryness, Erythema, Flushing, Lesions, Lumps, Pallor, Pruritus, Rash, Sweating, Other Neurological: No: Symptoms reported, See HPI, Headache, Numbness, Paresthesia, Pre-Existing Deficit, Seizure, Tingling, Tremors, Weakness, Unsteady Gait, Ataxia, Dizziness, Other *Physical Exam - Vital Signs Last Vital Signs Temp Pulse Resp BP Pulse Ox 97.9 F 95 H 18 163/95 96 12/12/19 11:23 12/12/19 11:23 12/12/19 11:23 12/12/19 11:23 12/12/19 11:23 - Physical Exam 12/12/19 11:37 Gen: alert, NAD HEENT: normocephalic, atraumatic Cv: rrr no m/r/g Pulm: CTA b/l Abdomen: soft, non tender, non distended, no guarding or rebound Ext: no edema Neuro: alert and oriented x 3, ambulatory with steady gait Psych: normal mood and affect, non SI or HI. Medical Decision Making - Medical Decision Making 12/12/19 11:41 Pt presents to the Ed after addiction social worker called EMS because the patient was intoxicated in his home. The patient has no complaints. He is mildly intoxicated, but is oriented and ambulatory. No signs of psychiatric emergency. Will discharge home. correction worker will make arrangements for outpatient detox. Discharge - Discharge Information Problems reviewed: Yes Clinical Impression/Diagnosis: Alcohol intoxication Condition: Good Disposition: HOME - Admission No - Follow up/Referral - Patient Discharge Instructions Patient Printed Discharge Instructions: DI for Alcohol Use Disorder Additional Instructions: you came to the ED because you were intoxicated. You should make arrangements to attend detox as an outpatient. you should return to the ED for worsening symptoms, including pain, shortness of breath, severe nausea or vomiting, thoughts of hurting yourself or somebody else. - Post Discharge Activity
== END 2019-12-12 12:00 | disposition home or self-care (01) ==
LOC: JER 11:12
DX: F10.920 Alcohol use, unspecified with intoxication, uncomplicated (principal)
CPT/HCPCS: 99283-25

== ENCOUNTER 2020-03-18 07:39 | Inpatient (IN) | payer OTHER ==
[2020-03-18 09:05] LABS: BASO % 0.5 % (0-2.0); EOS % 1.1 % (0-4.5); HEMATOCRIT 29.9 % (35.4-49); HEMOGLOBIN 10.3 GM/dL (11.7-16.9); LYMPH % 26.4 % (8-40); MCHC 34.6 g/dl (32.0-35.9); MEAN CELL VOLUME 89.5 fl (80-96); MEAN PLT VOLUME 8.2 fl (7.5-11.1); MONO % 11.7 % (3.8-10.2); NEUT % 60.3 % (42.8-82.8); PLATELET COUNT 147 K/MM3 (134-434); RBC 3.34 M/mm3 (4.00-5.60); RDW 17.3 % (11.9-15.9); WHITE BLOOD COUNT 4.1 K/mm3 (4.0-10.0)
[2020-03-18 09:14] LABS: INR 1.03 (0.83-1.09); PROTHROMBIN TIME (PATIENT) 12.4 SEC (9.7-13.0)
[2020-03-18 09:17] LABS: ACTIVATED PTT 26.9 SECONDS (25.2-36.5)
[2020-03-18 09:23] LABS: ALBUMIN 3.1 g/dl (3.4-5.0); BLOOD UREA NITROGEN 22.1 mg/dL (7-18); CALCIUM 7.6 mg/dL (8.5-10.1)
[2020-03-18] MEDS ORDERED: LACTATED RINGERS SOLUTION 1000 ML INFUS.BAG IV ONE (09:25)
[2020-03-18] MEDS ORDERED: POTASSIUM CHLORIDE 20 MEQ PREMIX IVPB 100 ML IVPB ONE (09:25)
[2020-03-18 09:27] LABS: CREATININE 1.7 mg/dL (0.55-1.3)
[2020-03-18 09:28] LABS: TOT PROT 6.4 g/dl (6.4-8.2)
[2020-03-18 09:34] LABS: BILIRUBIN,TOTAL 1.3 mg/dL (0.2-1)
[2020-03-18] MEDS ORDERED: KCL 10 MEQ IVPB 20 MEQ/200 ML INFUS.BAG IVPB ONE (09:39)
[2020-03-18] MEDS ORDERED: PANTOPRAZOLE SODIUM 80 MG in SODIUM CHLORIDE 100 ML IVPB SCH (10:14)
[2020-03-18] MEDS ORDERED: OCTREOTIDE ACETATE 200 MCG, OCTREOTIDE ACETATE 1,000 MCG in DEXTROSE 5%-WATER - 496 ML IVPB SCH (10:15)
[2020-03-18] MEDS: KCL 10 MEQ IVPB 10 MEQ/100 ML INFUS.BAG IVPB SCH ×3 (10:31→11:57)
[2020-03-18] MEDS ORDERED: KCL 10 MEQ IVPB 10 MEQ/100 ML INFUS.BAG IVPB ONE (11:49)
[2020-03-18] MEDS ORDERED: CEFTRIAXONE 1,000 MG in DEXTROSE 5%-WATER - 50 ML IVPB SCH ×2 (12:00→13:01)
[2020-03-18] MEDS ORDERED: CEFTRIAXONE 1 GM/50 ML BAG ONE (12:26)
[2020-03-18] MEDS: SODIUM CHLORIDE 1,000 ML IV SCH ×2 (12:42→17:15)
[2020-03-18] MEDS ORDERED: CEFTRIAXONE 1,000 GM in DEXTROSE 5%-WATER - 50 ML IVPB SCH (13:01)
[2020-03-18] MEDS ORDERED: CEFTRIAXONE 1 GM in DEXTROSE 5%-WATER - 50 ML IVPB SCH (13:02)
[2020-03-18 13:39] LABS: HEMATOCRIT 26.5 % (35.4-49); HEMOGLOBIN 9.1 GM/dL (11.7-16.9); MCH 30.8 pg (25.7-33.7); MCHC 34.3 g/dl (32.0-35.9); MEAN CELL VOLUME 89.8 fl (80-96); MEAN PLT VOLUME 7.9 fl (7.5-11.1); PLATELET COUNT 129 K/MM3 (134-434); RBC 2.96 M/mm3 (4.00-5.60); WHITE BLOOD COUNT 4.5 K/mm3 (4.0-10.0)
[2020-03-18] MEDS ORDERED: MIDAZOLAM HCL 2 MG/2 ML SINGLE DOSE VIAL ONE (15:38)
[2020-03-18] MEDS ORDERED: BISACODYL 5 MG TABLET.DR (FP) PO ONE (17:00)
[2020-03-18] MEDS ORDERED: PEG 3350/NA SULF BICARB CL/KCL 4000 ML SOLN.RECON PO ONE (18:00)
[2020-03-18 18:37] VITALS: BMI 26.9
[2020-03-18] MEDS: POTASSIUM CHLORIDE 10 MEQ in SODIUM CHLORIDE 1,000 ML IV SCH (19:35)
[2020-03-18] MEDS: CARVEDILOL 6.25 MG TABLET (FP) PO SCH (21:57)
[2020-03-18] MEDS ORDERED: MELATONIN 5 MG TABLETS PO ONE (23:35)
[2020-03-19 08:14] LABS: BASO % 1.3 % (0-2.0); EOS % 2.5 % (0-4.5); HEMATOCRIT 26.5 % (35.4-49); LYMPH % 30.8 % (8-40); MCH 30.9 pg (25.7-33.7); MCHC 33.8 g/dl (32.0-35.9); MEAN CELL VOLUME 91.4 fl (80-96); MONO % 11.7 % (3.8-10.2); NEUT % 53.7 % (42.8-82.8); PLATELET COUNT 106 K/MM3 (134-434); RDW 16.9 % (11.9-15.9); WHITE BLOOD COUNT 3.6 K/mm3 (4.0-10.0)
[2020-03-19] MEDS ORDERED: PT OWN MED DRAWER 7, Y5N ONE ×2 (08:27→13:04)
[2020-03-19 08:36] LABS: INR 1.02 (0.83-1.09); PROTHROMBIN TIME (PATIENT) 12.5 SEC (9.7-13.0)
[2020-03-19 08:41] LABS: ALBUMIN 2.9 g/dl (3.4-5.0); BLOOD UREA NITROGEN 12.4 mg/dL (7-18); MAGNESIUM 1.1 mg/dL (1.8-2.4)
[2020-03-19 08:44] LABS: CREATININE 1.2 mg/dL (0.55-1.3); PHOSPHOROUS 1.3 mg/dL (2.5-4.9)
[2020-03-19 08:45] LABS: BILIRUBIN,TOTAL 0.9 mg/dL (0.2-1); TOT PROT 5.8 g/dl (6.4-8.2)
[2020-03-19] MEDS ORDERED: MAGNESIUM SULF 50% (8.12 MEQ/2 ML-1 GM VIAL) IVPB ONE ×2 (08:45→20:00)
[2020-03-19] MEDS ORDERED: SODIUM PHOSPHATE - 20 MM in SODIUM CHLORIDE 250 ML IVPB ONE ×2 (09:00→09:13)
[2020-03-19] MEDS ORDERED: SODIUM PHOSPHATE - 20 MM in SODIUM CHLORIDE 500 ML IVPB ONE (09:02)
[2020-03-19 09:16] LABS: CALCIUM 6.9 mg/dL (8.5-10.1)
[2020-03-19] MEDS: POTASSIUM CHLORIDE 10 MEQ in SODIUM CHLORIDE 1,000 ML IV SCH (09:39)
[2020-03-19] MEDS: CARVEDILOL 6.25 MG TABLET (FP) PO SCH ×2 (09:40→22:08)
[2020-03-19] MEDS ORDERED: PANTOPRAZOLE SODIUM 40 MG in SODIUM CHLORIDE 100 ML IVPB SCH (10:00)
[2020-03-19] MEDS ORDERED: PANTOPRAZOLE SODIUM 40 MG VIAL IVPUSH SCH (10:00)
[2020-03-19] MEDS ORDERED: CALCIUM 500MG/VIT-D 200 UNITS COMBO TABLET (FP) PO ONE (13:19)
[2020-03-19] MEDS ORDERED: traZODone HCL 50 MG TABLET (FP) ONE (23:59)
[2020-03-20] MEDS: traZODone HCL 100 MG TABLET (FP) PO SCH ×2 (00:01→21:27)
[2020-03-20 07:19] LABS: ALBUMIN 2.6 g/dl (3.4-5.0); CALCIUM 7.3 mg/dL (8.5-10.1); MAGNESIUM 1.5 mg/dL (1.8-2.4)
[2020-03-20 07:22] LABS: BLOOD UREA NITROGEN 9.8 mg/dL (7-18); CREATININE 1.2 mg/dL (0.55-1.3); PHOSPHOROUS 3.1 mg/dL (2.5-4.9)
[2020-03-20 07:24] LABS: TOT PROT 5.3 g/dl (6.4-8.2)
[2020-03-20] MEDS ORDERED: POTASSIUM CHLORIDE TABS 20 MEQ TABLET.ER (FP) PO ONE (08:45)
[2020-03-20] MEDS ORDERED: MAGNESIUM OXIDE 400 MG TABLET (FP) PO ONE (08:45)
[2020-03-20] MEDS: NIFEdipine E.R. 30 MG TABLET PO SCH (10:03)
[2020-03-20] MEDS: CARVEDILOL 6.25 MG TABLET (FP) PO SCH ×2 (10:04→21:26)
[2020-03-20 10:17] LABS: BASO % 1.1 % (0-2.0); EOS % 2.7 % (0-4.5); HEMATOCRIT 23.2 % (35.4-49); HEMOGLOBIN 7.7 GM/dL (11.7-16.9); LYMPH % 33.3 % (8-40); MCH 30.4 pg (25.7-33.7); MEAN CELL VOLUME 92.1 fl (80-96); MEAN PLT VOLUME 9.3 fl (7.5-11.1); MONO % 12.9 % (3.8-10.2); PLATELET COUNT 78 K/MM3 (134-434); RBC 2.52 M/mm3 (4.00-5.60); RDW 17.4 % (11.9-15.9); WHITE BLOOD COUNT 2.7 K/mm3 (4.0-10.0)
[2020-03-20 16:56] LABS: BASO % 0.9 % (0-2.0); EOS % 2.4 % (0-4.5); HEMATOCRIT 24.2 % (35.4-49); HEMOGLOBIN 8.2 GM/dL (11.7-16.9); LYMPH % 25.4 % (8-40); MCH 30.8 pg (25.7-33.7); MCHC 33.7 g/dl (32.0-35.9); MEAN CELL VOLUME 91.3 fl (80-96); MEAN PLT VOLUME 8.7 fl (7.5-11.1); NEUT % 60.3 % (42.8-82.8); PLATELET COUNT 84 K/MM3 (134-434); RBC 2.65 M/mm3 (4.00-5.60); WHITE BLOOD COUNT 3.1 K/mm3 (4.0-10.0)
[2020-03-21 08:50] LABS: BASO % 0.9 % (0-2.0); EOS % 2.7 % (0-4.5); HEMATOCRIT 25.8 % (35.4-49); HEMOGLOBIN 8.6 GM/dL (11.7-16.9); LYMPH % 25.3 % (8-40); MCH 30.7 pg (25.7-33.7); MCHC 33.2 g/dl (32.0-35.9); MEAN CELL VOLUME 92.7 fl (80-96); MEAN PLT VOLUME 8.7 fl (7.5-11.1); MONO % 10.7 % (3.8-10.2); NEUT % 60.4 % (42.8-82.8); PLATELET COUNT 88 K/MM3 (134-434); RBC 2.78 M/mm3 (4.00-5.60); RDW 17.6 % (11.9-15.9); WHITE BLOOD COUNT 3.7 K/mm3 (4.0-10.0)
[2020-03-21 09:13] LABS: ALBUMIN 2.9 g/dl (3.4-5.0); CALCIUM 8.1 mg/dL (8.5-10.1); MAGNESIUM 1.4 mg/dL (1.8-2.4)
[2020-03-21 09:16] LABS: CREATININE 1.2 mg/dL (0.55-1.3)
[2020-03-21 09:18] LABS: BILIRUBIN,TOTAL 0.3 mg/dL (0.2-1); TOT PROT 6.3 g/dl (6.4-8.2)
[2020-03-21] MEDS ORDERED: MAGNESIUM OXIDE 400 MG TABLET (FP) PO ONE (09:24)
[2020-03-21] MEDS: CARVEDILOL 6.25 MG TABLET (FP) PO SCH ×2 (11:16→21:27)
[2020-03-21] MEDS: NIFEdipine E.R. 30 MG TABLET PO SCH (11:16)
[2020-03-21] MEDS ORDERED: PT OWN MED DRAWER 7, Y5N ONE (20:41)
[2020-03-21] MEDS: traZODone HCL 100 MG TABLET (FP) PO SCH (23:54)
[2020-03-22 08:28] LABS: BASO % 1.1 % (0-2.0); EOS % 3.1 % (0-4.5); HEMATOCRIT 23.7 % (35.4-49); HEMOGLOBIN 8.1 GM/dL (11.7-16.9); LYMPH % 30.5 % (8-40); MCH 31.1 pg (25.7-33.7); MCHC 34.2 g/dl (32.0-35.9); MEAN CELL VOLUME 90.7 fl (80-96); MEAN PLT VOLUME 8.9 fl (7.5-11.1); MONO % 12.9 % (3.8-10.2); NEUT % 52.4 % (42.8-82.8); PLATELET COUNT 109 K/MM3 (134-434); RBC 2.62 M/mm3 (4.00-5.60); RDW 17.2 % (11.9-15.9); WHITE BLOOD COUNT 4.1 K/mm3 (4.0-10.0)
[2020-03-22 09:08] LABS: CALCIUM 8.4 mg/dL (8.5-10.1)
[2020-03-22 09:09] LABS: ALBUMIN 2.9 g/dl (3.4-5.0); BLOOD UREA NITROGEN 9.4 mg/dL (7-18); MAGNESIUM 1.2 mg/dL (1.8-2.4)
[2020-03-22 09:11] LABS: BILIRUBIN,TOTAL 0.4 mg/dL (0.2-1); TOT PROT 6.1 g/dl (6.4-8.2)
[2020-03-22 09:12] LABS: CREATININE 1.1 mg/dL (0.55-1.3)
[2020-03-22] MEDS ORDERED: POTASSIUM CHLORIDE TABS 20 MEQ TABLET.ER (FP) PO ONE (09:30)
[2020-03-22] MEDS: CARVEDILOL 6.25 MG TABLET (FP) PO SCH (09:37)
[2020-03-22] MEDS: NIFEdipine E.R. 30 MG TABLET PO SCH (09:37)
[2020-03-22] MEDS ORDERED: MAGNESIUM SULF 50% (8.12 MEQ/2 ML-1 GM VIAL) IVPB ONE (09:41)
[2020-03-22] MEDS: INSULIN SLIDING SCALE (NOVOLOG) 1 VIAL SQ SCH ×2 (12:08→17:20)
[2020-03-22 12:54] VITALS: BP 138/69; PULSE 85; TEMP 98.2
[2020-03-22] MEDS ORDERED: MAGNESIUM OXIDE 400 MG TABLET (FP) PO SCH (22:00)
[2020-03-22 23:07] LABS: HEP B CORE AB, TOT Positive (Negative)
== END 2020-03-22 19:22 | disposition home or self-care (01) | DRG 378 ==
LOC: JER 07:39 → JERBED 10:49 → J4S 17:29
PROVIDERS: ATTEND Nurse Practitioner Family
PROC: 0DJ08ZZ Inspection of Upper Intestinal Tract, Via Natural or Artificial Opening Endoscopic (ICD-10-PCS; 2020-03-18)
PROC: 0DBL8ZX Excision of Transverse Colon, Via Natural or Artificial Opening Endoscopic, Diagnostic (ICD-10-PCS; principal; 2020-03-19)
DX: K57.31 Diverticulosis of large intestine without perforation or abscess with bleeding (principal); N17.9 Acute kidney failure, unspecified; F32.9 Major depressive disorder, single episode, unspecified; F41.9 Anxiety disorder, unspecified; F10.10 Alcohol abuse, uncomplicated; F43.10 Post-traumatic stress disorder, unspecified; I12.9 Hypertensive chronic kidney disease with stage 1 through stage 4 chronic kidney disease, or unspecified chronic kidney disease; N18.9 Chronic kidney disease, unspecified; K63.5 Polyp of colon
CPT/HCPCS: 36415; 76705-TC; 76775-TC; 80053; 82272; 82607; 82728; 82746; 83036; 83540; 83550; 83735; 84100; 85025; 85027; 85610; 85730; 86704; 86706; 86707; 86708; 86709; 86850; 86900; 86901; 87340; 88305-TC; 93005; 93010; 94760; 99285-25; C9803; U0003

== ENCOUNTER 2020-06-24 14:44 | Inpatient (IN) | payer OTHER ==
[2020-06-24 15:09] VITALS: BMI 26.9
[2020-06-24] MEDS ORDERED: SODIUM CHLORIDE 2,858 ML IV ONE (15:52)
[2020-06-24] MEDS ORDERED: ACETAMINOPHEN 1000 MG/100 ML VIAL (NON FORMULARY) IVPB ONE (16:12)
[2020-06-24] MEDS ORDERED: SODIUM CHLORIDE 0.9% 1000 ML INFUS.BAG IV ONE (16:38)
[2020-06-24] MEDS ORDERED: ACETAMINOPHEN INJECTION 100 ML IVPB ONE ×2 (16:39→23:25)
[2020-06-24 16:49] LABS: VENOUS BASE EXCESS -1.5 mmol/L (-2-2); VENOUS PCO2 28.7 mmHg (38-52); VENOUS PH 7.496 (7.310-7.410)
[2020-06-24 17:03] LABS: BASO % 1.1 % (0-2.0); EOS % 2.5 % (0-4.5); HEMATOCRIT 15.1 % (35.4-49); LYMPH % 23.2 % (8-40); MCH 27.2 pg (25.7-33.7); MEAN CELL VOLUME 82.3 fl (80-96); MEAN PLT VOLUME 8.9 fl (7.5-11.1); MONO % 13.8 % (3.8-10.2); NEUT % 59.4 % (42.8-82.8); PLATELET COUNT 186 K/MM3 (134-434); RBC 1.84 M/mm3 (4.00-5.60); RDW 19.3 % (11.9-15.9)
[2020-06-24 17:04] LABS: CHLORIDE 105 mmol/L (98-107); SODIUM 137 mmol/L (136-145)
[2020-06-24 17:06] LABS: CALCIUM 8.2 mg/dL (8.5-10.1)
[2020-06-24 17:07] LABS: ALBUMIN 2.7 g/dl (3.4-5.0); ANION GAP 7 MMOL/L (8-16); BLOOD UREA NITROGEN 16.4 mg/dL (7-18); CO2 25 mmol/L (21-32); GLUCOSE,RANDOM 137 mg/dL (74-106); MAGNESIUM 1.6 mg/dL (1.8-2.4)
[2020-06-24 17:10] LABS: CREATININE 1.1 mg/dL (0.55-1.3); SGOT/AST 37 U/L (15-37); SGPT/ALT 37 U/L (13-61)
[2020-06-24 17:12] LABS: BILIRUBIN,TOTAL 0.4 mg/dL (0.2-1); TOT PROT 5.8 g/dl (6.4-8.2)
[2020-06-24 17:13] LABS: ALK PHOS 36 U/L (45-117)
[2020-06-24] MEDS ORDERED: MAGNESIUM SULF 50% (8.12 MEQ/2 ML-1 GM VIAL) IVPB ONE (17:31)
[2020-06-24 17:41] LABS: INR 1.04 (0.83-1.09); PROTHROMBIN TIME (PATIENT) 12.6 SEC (9.7-13.0)
[2020-06-24 17:44] LABS: ACTIVATED PTT 23.6 SECONDS (25.2-36.5)
[2020-06-24] MEDS ORDERED: MAGNESIUM 1GM/D5W - 1 GM/100 ML IVPB IVPB ONE (17:51)
[2020-06-24] MEDS ORDERED: LACTATED RINGERS SOLUTION 1,000 ML/1,000 ML INFUS.BAG IV SCH (19:00)
[2020-06-24] MEDS ORDERED: DEXTROSE 5%-LACTATED RINGERS 1,000 ML IV SCH (21:00)
[2020-06-24 22:27] LABS: EPI CELLS 10 /uL (0-25.1); HYALINE CASTS 1 /uL (0-3.1); PH,URINE 6.5 (5.0-8.0); URINE APPEARANCE CLEAR; URINE BACTERIA >9,000 /uL (0-1359); URINE BILIRUBIN NEGATIVE (NEGATIVE); URINE COLOR YELLOW; URINE GLUCOSE (UA) NEGATIVE (NEGATIVE); URINE KETONE 1+ (NEGATIVE); URINE LEUK ESTERASE NEGATIVE (NEGATIVE); URINE NITRITE POSITIVE (NEGATIVE); URINE PROTEIN NEGATIVE (NEGATIVE); URINE RBC 6 /uL (0-23.9); URINE UROBILINOGEN 0.2 mg/dL (0.2-1.0); URINE WBC 10 /uL (0-25.8)
[2020-06-25] MEDS ORDERED: PANTOPRAZOLE SODIUM 40 MG VIAL ONE (00:49)
[2020-06-25] MEDS: PANTOPRAZOLE SODIUM 40 MG VIAL IVPUSH SCH ×3 (01:58→21:07)
[2020-06-25 06:49] LABS: HEMATOCRIT 19.1 % (35.4-49); MCH 29.2 pg (25.7-33.7); MCHC 34.8 g/dl (32.0-35.9); MEAN CELL VOLUME 83.7 fl (80-96); MEAN PLT VOLUME 8.5 fl (7.5-11.1); PLATELET COUNT 151 K/MM3 (134-434); RBC 2.28 M/mm3 (4.00-5.60); RDW 17.1 % (11.9-15.9); WHITE BLOOD COUNT 4.7 K/mm3 (4.0-10.0)
[2020-06-25 07:14] LABS: ALBUMIN 2.4 g/dl (3.4-5.0); CALCIUM 7.5 mg/dL (8.5-10.1)
[2020-06-25 07:15] LABS: BLOOD UREA NITROGEN 14.4 mg/dL (7-18); MAGNESIUM 1.8 mg/dL (1.8-2.4)
[2020-06-25 07:19] LABS: BILIRUBIN,TOTAL 1.1 mg/dL (0.2-1); TOT PROT 5.1 g/dl (6.4-8.2)
[2020-06-25 07:26] LABS: INR 1.05 (0.83-1.09); PROTHROMBIN TIME (PATIENT) 12.7 SEC (9.7-13.0)
[2020-06-25] MEDS ORDERED: FOLIC ACID INJECTION - 1 MG, THIAMINE HCL 200 MG, MULTIVIT INJECTION ADULT 10 ML in SOD... IVPB ONE (07:40)
[2020-06-25 07:46] LABS: HEMOGLOBIN 6.7 GM/dL (11.7-16.9)
[2020-06-25 08:18] LABS: BILIRUBIN,DIRECT 0.3 mg/dL (0.0-0.2)
[2020-06-25 08:36] LABS: RETICULOCYTES 3.18 % (0.5-1.5)
[2020-06-25] MEDS ORDERED: PT OWN MED DRAWER 7, Y5N ONE (09:01)
[2020-06-25] MEDS ORDERED: cefTRIAXone SODIUM 1 GM VIAL ONE (13:08)
[2020-06-25] MEDS ORDERED: DEXTROSE 5%-WATER - 50 ML IVPB ONE (13:08)
[2020-06-25] MEDS: CEFTRIAXONE 1 GM in DEXTROSE 5%-WATER - 50 ML IVPB SCH (14:10)
[2020-06-25 19:57] LABS: HEMATOCRIT 21.5 % (35.4-49); HEMOGLOBIN 7.2 GM/dL (11.7-16.9); MCH 28.4 pg (25.7-33.7); MCHC 33.6 g/dl (32.0-35.9); MEAN CELL VOLUME 84.4 fl (80-96); MEAN PLT VOLUME 8.6 fl (7.5-11.1); PLATELET COUNT 159 K/MM3 (134-434); RBC 2.55 M/mm3 (4.00-5.60); RDW 16.7 % (11.9-15.9); WHITE BLOOD COUNT 4.3 K/mm3 (4.0-10.0)
[2020-06-25] MEDS: FERROUS SO4 325 MG TABLET (FP) PO SCH (21:05)
[2020-06-25] MEDS: traZODone HCL 100 MG TABLET (FP) PO SCH (21:40)
[2020-06-25] MEDS: CARVEDILOL 6.25 MG TABLET (FP) PO SCH (21:40)
[2020-06-25] MEDS: ACETAMINOPHEN 325 MG TABLET (FP) PO PRN (22:19)
[2020-06-26] MEDS ORDERED: DEXTROSE 5%-WATER - 50 ML IVPB ONE (08:46)
[2020-06-26] MEDS ORDERED: cefTRIAXone SODIUM 1 GM VIAL ONE (08:46)
[2020-06-26 09:32] LABS: HEMATOCRIT 21.4 % (35.4-49); HEMOGLOBIN 7.3 GM/dL (11.7-16.9); MCH 28.8 pg (25.7-33.7); MEAN CELL VOLUME 84.7 fl (80-96); MEAN PLT VOLUME 8.8 fl (7.5-11.1); PLATELET COUNT 179 K/MM3 (134-434); RBC 2.53 M/mm3 (4.00-5.60); RDW 16.5 % (11.9-15.9); WHITE BLOOD COUNT 4.2 K/mm3 (4.0-10.0)
[2020-06-26] MEDS: CARVEDILOL 6.25 MG TABLET (FP) PO SCH ×2 (09:51→21:46)
[2020-06-26] MEDS: THIAMINE HCL 100 MG TABLET (FP) PO SCH (09:51)
[2020-06-26] MEDS: CYANOCOBALAMIN 1,000 MCG TABLET (FP) PO SCH (09:51)
[2020-06-26] MEDS: FERROUS SO4 325 MG TABLET (FP) PO SCH ×2 (09:52→21:46)
[2020-06-26] MEDS: CEFTRIAXONE 1 GM in DEXTROSE 5%-WATER - 50 ML IVPB SCH (09:52)
[2020-06-26] MEDS: PANTOPRAZOLE SODIUM 40 MG VIAL IVPUSH SCH ×2 (09:54→21:46)
[2020-06-26] MEDS ORDERED: NIFEdipine E.R. 30 MG TABLET PO SCH (10:00)
[2020-06-26 10:04] LABS: ALBUMIN 2.4 g/dl (3.4-5.0); BLOOD UREA NITROGEN 9.6 mg/dL (7-18); CALCIUM 7.7 mg/dL (8.5-10.1)
[2020-06-26 10:05] LABS: MAGNESIUM 1.9 mg/dL (1.8-2.4)
[2020-06-26 10:07] LABS: PHOSPHOROUS 3.6 mg/dL (2.5-4.9)
[2020-06-26 10:08] LABS: BILIRUBIN,TOTAL 0.4 mg/dL (0.2-1); TOT PROT 5.2 g/dl (6.4-8.2)
[2020-06-26] MEDS: ACETAMINOPHEN 325 MG TABLET (FP) PO PRN (21:46)
[2020-06-26] MEDS: traZODone HCL 100 MG TABLET (FP) PO SCH (21:47)
[2020-06-27 06:50] LABS: HEMATOCRIT 19.9 % (35.4-49); MEAN CELL VOLUME 85.3 fl (80-96); MEAN PLT VOLUME 8.5 fl (7.5-11.1); PLATELET COUNT 228 K/MM3 (134-434); RBC 2.33 M/mm3 (4.00-5.60); RDW 17.1 % (11.9-15.9); WHITE BLOOD COUNT 4.8 K/mm3 (4.0-10.0)
[2020-06-27 06:58] LABS: HEMOGLOBIN 6.7 GM/dL (11.7-16.9)
[2020-06-27 07:15] LABS: CALCIUM 7.9 mg/dL (8.5-10.1)
[2020-06-27 07:20] LABS: CREATININE 1.3 mg/dL (0.55-1.3)
[2020-06-27] MEDS ORDERED: DEXTROSE 5%-WATER - 50 ML IVPB ONE (10:59)
[2020-06-27] MEDS ORDERED: cefTRIAXone SODIUM 1 GM VIAL ONE (10:59)
[2020-06-27] MEDS: CEFTRIAXONE 1 GM in DEXTROSE 5%-WATER - 50 ML IVPB SCH (11:06)
[2020-06-27] MEDS: THIAMINE HCL 100 MG TABLET (FP) PO SCH (11:07)
[2020-06-27] MEDS: PANTOPRAZOLE SODIUM 40 MG VIAL IVPUSH SCH ×2 (11:07→21:13)
[2020-06-27] MEDS: FERROUS SO4 325 MG TABLET (FP) PO SCH ×2 (11:08→21:12)
[2020-06-27] MEDS: CYANOCOBALAMIN 1,000 MCG TABLET (FP) PO SCH (11:08)
[2020-06-27] MEDS: DOCUSATE SODIUM 100 MG CAPSULE (FP) PO SCH (17:34)
[2020-06-27 19:00] LABS: HEMATOCRIT 24.6 % (35.4-49); HEMOGLOBIN 8.3 GM/dL (11.7-16.9); MCH 28.8 pg (25.7-33.7); MCHC 33.9 g/dl (32.0-35.9); MEAN PLT VOLUME 8.5 fl (7.5-11.1); PLATELET COUNT 236 K/MM3 (134-434); RDW 15.9 % (11.9-15.9); WHITE BLOOD COUNT 4.6 K/mm3 (4.0-10.0)
[2020-06-27] MEDS ORDERED: PT OWN MED DRAWER 7, Y5N ONE (21:01)
[2020-06-27] MEDS: ACETAMINOPHEN 325 MG TABLET (FP) PO PRN (21:12)
[2020-06-27] MEDS: traZODone HCL 100 MG TABLET (FP) PO SCH (21:13)
[2020-06-28 08:13] LABS: BLOOD UREA NITROGEN 9.8 mg/dL (7-18); CALCIUM 8.5 mg/dL (8.5-10.1)
[2020-06-28 08:14] LABS: HEMATOCRIT 23.5 % (35.4-49); MAGNESIUM 2.1 mg/dL (1.8-2.4); MCHC 33.9 g/dl (32.0-35.9); MEAN CELL VOLUME 85.7 fl (80-96); MEAN PLT VOLUME 8.3 fl (7.5-11.1); PLATELET COUNT 268 K/MM3 (134-434); RBC 2.74 M/mm3 (4.00-5.60); RDW 16.3 % (11.9-15.9); WHITE BLOOD COUNT 5.1 K/mm3 (4.0-10.0)
[2020-06-28 08:17] LABS: CREATININE 1.2 mg/dL (0.55-1.3); PHOSPHOROUS 4.3 mg/dL (2.5-4.9)
[2020-06-28] MEDS: FERROUS SO4 325 MG TABLET (FP) PO SCH ×2 (09:45→21:25)
[2020-06-28] MEDS: CYANOCOBALAMIN 1,000 MCG TABLET (FP) PO SCH (09:45)
[2020-06-28] MEDS: THIAMINE HCL 100 MG TABLET (FP) PO SCH (09:45)
[2020-06-28] MEDS: PANTOPRAZOLE SODIUM 40 MG VIAL IVPUSH SCH ×3 (09:46→21:25)
[2020-06-28] MEDS: DOCUSATE SODIUM 100 MG CAPSULE (FP) PO SCH (09:46)
[2020-06-28 17:38] LABS: URINE APPEARANCE CLEAR; URINE BILIRUBIN NEGATIVE (NEGATIVE); URINE COLOR YELLOW; URINE GLUCOSE (UA) TRACE (NEGATIVE); URINE KETONE NEGATIVE (NEGATIVE); URINE LEUK ESTERASE NEGATIVE (NEGATIVE); URINE NITRITE NEGATIVE (NEGATIVE); URINE PROTEIN NEGATIVE (NEGATIVE); URINE UROBILINOGEN 0.2 mg/dL (0.2-1.0)
[2020-06-28] MEDS ORDERED: ACETAMINOPHEN 325 MG TABLET (FP) PO PRN (19:42)
[2020-06-28] MEDS ORDERED: traZODone HCL 100 MG TABLET (FP) PO SCH (22:00)
[2020-06-29] MEDS ORDERED: NIFEdipine E.R. 30 MG TABLET PO SCH (10:00)
[2020-06-29] MEDS ORDERED: CYANOCOBALAMIN 1,000 MCG TABLET (FP) PO SCH (10:00)
[2020-06-29] MEDS ORDERED: DOCUSATE SODIUM 100 MG CAPSULE (FP) PO SCH (10:00)
[2020-06-29] MEDS ORDERED: THIAMINE HCL 100 MG TABLET (FP) PO SCH (10:00)
[2020-06-29] MEDS ORDERED: PT OWN MED DRAWER 7, Y5N ONE (10:20)
[2020-06-29] MEDS: PANTOPRAZOLE SODIUM 40 MG VIAL IVPUSH SCH (10:24)
[2020-06-29] MEDS: FERROUS SO4 325 MG TABLET (FP) PO SCH (10:25)
[2020-06-29 12:21] LABS: HEMATOCRIT 23.6 % (35.4-49); HEMOGLOBIN 8.1 GM/dL (11.7-16.9); MCHC 34.2 g/dl (32.0-35.9); MEAN CELL VOLUME 84.8 fl (80-96); MEAN PLT VOLUME 8.2 fl (7.5-11.1); PLATELET COUNT 243 K/MM3 (134-434); RBC 2.79 M/mm3 (4.00-5.60); RDW 16.5 % (11.9-15.9); WHITE BLOOD COUNT 4.9 K/mm3 (4.0-10.0)
[2020-06-29 12:44] LABS: ALBUMIN 2.4 g/dl (3.4-5.0); BLOOD UREA NITROGEN 5.7 mg/dL (7-18); MAGNESIUM 1.9 mg/dL (1.8-2.4)
[2020-06-29 12:48] LABS: CREATININE 1.2 mg/dL (0.55-1.3)
[2020-06-29 12:49] LABS: BILIRUBIN,TOTAL 0.3 mg/dL (0.2-1); TOT PROT 5.5 g/dl (6.4-8.2)
[2020-06-29 14:38] VITALS: BP 134/86; PULSE 89; TEMP 99
== END 2020-06-29 18:28 | disposition home or self-care (01) | DRG 378 ==
LOC: JER 14:44 → JERBED 18:06 → J4S 06-25 01:36 → J6S 06-28 19:33
PROVIDERS: ATTEND Internal Medicine
PROC: 30233N1 Transfusion of Nonautologous Red Blood Cells into Peripheral Vein, Percutaneous Approach (ICD-10-PCS; principal; 2020-06-24)
DX: K92.2 Gastrointestinal hemorrhage, unspecified (principal); K86.3 Pseudocyst of pancreas; I10 Essential (primary) hypertension; F43.10 Post-traumatic stress disorder, unspecified; G47.00 Insomnia, unspecified; F10.10 Alcohol abuse, uncomplicated; F41.8 Other specified anxiety disorders
CPT/HCPCS: 36415; 36430; 71045-TC-FY; 74174-TC; 80048; 80053; 81003; 82248; 82272; 82550; 82728; 82803; 83010; 83605; 83615; 83735; 84100; 84484; 85025; 85027; 85045; 85384; 85610; 85730; 86850; 86900; 86901; 86922; 87040; 87086; 87186; 87804; 93005; 93010; 99285-25; C9803; J0131; P9058; U0003; U0005

== ENCOUNTER 2020-07-25 23:55 | Inpatient (IN) | payer OTHER ==
[2020-07-26] MEDS ORDERED: PANTOPRAZOLE SODIUM 40 MG VIAL IVPUSH ONE (00:13)
[2020-07-26] MEDS ORDERED: OCTREOTIDE ACETATE 200 MCG, OCTREOTIDE ACETATE 1,000 MCG in DEXTROSE 5%-WATER - 496 ML IVPB SCH (00:15)
[2020-07-26] MEDS ORDERED: OCTREOTIDE ACETATE 500 MCG/1 ML - 1 ML VIAL IVPUSH ONE (00:15)
[2020-07-26] MEDS ORDERED: PANTOPRAZOLE SODIUM 40 MG/100 ML BAG IVPB ONE (00:16)
[2020-07-26] MEDS ORDERED: OCTREOTIDE ACETATE 500 MCG/1 ML - 1 ML VIAL ONE (00:25)
[2020-07-26] MEDS ORDERED: OCTREOTIDE ACETATE 100 MCG/1 ML ONE (00:29)
[2020-07-26] MEDS ORDERED: OCTREOTIDE ACETATE 50 MCG/1 ML - 1 ML VIAL IVPUSH ONE (00:30)
[2020-07-26] MEDS ORDERED: LORazepam 2 MG/ML SDV VIAL IVPUSH ONE (00:32)
[2020-07-26] MEDS ORDERED: LORazepam 2 MG/ML SDV VIAL ONE (00:41)
[2020-07-26 00:46] LABS: CHLORIDE 112 mmol/L (98-107); SODIUM 146 mmol/L (136-145)
[2020-07-26 00:48] LABS: ALBUMIN 2.7 g/dl (3.4-5.0); BASO % 0.6 % (0-2.0); CALCIUM 7.3 mg/dL (8.5-10.1); EOS % 0.2 % (0-4.5); HEMOGLOBIN 7.3 GM/dL (11.7-16.9); LYMPH % 14.8 % (8-40); MCH 26.4 pg (25.7-33.7); MCHC 30.2 g/dl (32.0-35.9); MEAN CELL VOLUME 87.4 fl (80-96); MEAN PLT VOLUME 8.9 fl (7.5-11.1); MONO % 5.5 % (3.8-10.2); NEUT % 78.9 % (42.8-82.8); PLATELET COUNT 296 K/MM3 (134-434); RBC 2.75 M/mm3 (4.00-5.60); RDW 19.3 % (11.9-15.9); WHITE BLOOD COUNT 13.1 K/mm3 (4.0-10.0)
[2020-07-26 00:49] LABS: ANION GAP 16 MMOL/L (8-16); BLOOD UREA NITROGEN 26.1 mg/dL (7-18); CO2 18 mmol/L (21-32); GLUCOSE,RANDOM 101 mg/dL (74-106)
[2020-07-26 00:51] LABS: SGPT/ALT 13 U/L (13-61)
[2020-07-26 00:52] LABS: CREATININE 1.6 mg/dL (0.55-1.3); SGOT/AST 26 U/L (15-37)
[2020-07-26 00:53] LABS: BILIRUBIN,TOTAL 0.2 mg/dL (0.2-1); TOT PROT 5.7 g/dl (6.4-8.2)
[2020-07-26 00:54] LABS: ALK PHOS 42 U/L (45-117)
[2020-07-26 00:56] LABS: INR 1.12 (0.83-1.09); PROTHROMBIN TIME (PATIENT) 13.7 SEC (9.7-13.0)
[2020-07-26 00:59] LABS: ACTIVATED PTT 22.8 SECONDS (25.2-36.5)
[2020-07-26] MEDS ORDERED: SODIUM CHLORIDE 0.9% 500 ML INFUS.BAG IV ONE ×3 (01:08→05:36)
[2020-07-26] MEDS ORDERED: morphine CARPU-JECT 2 MG/1 ML DISP.SYRIN IVPUSH ONE (05:36)
[2020-07-26] MEDS ORDERED: ACETAMINOPHEN 325 MG TABLET (FP) PO ONE (06:41)
[2020-07-26] MEDS ORDERED: ACETAMINOPHEN 325 MG TABLET (FP) ONE (06:42)
[2020-07-26 06:54] LABS: EPI CELLS 6 /uL (0-25.1); HYALINE CASTS 2 /uL (0-3.1); PH,URINE 5.5 (5.0-8.0); URINE APPEARANCE CLEAR; URINE BILIRUBIN NEGATIVE (NEGATIVE); URINE COLOR YELLOW; URINE GLUCOSE (UA) NEGATIVE (NEGATIVE); URINE KETONE 1+ (NEGATIVE); URINE LEUK ESTERASE NEGATIVE (NEGATIVE); URINE NITRITE POSITIVE (NEGATIVE); URINE PROTEIN 1+ (NEGATIVE); URINE RBC 17 /uL (0-23.9); URINE UROBILINOGEN 0.2 mg/dL (0.2-1.0); URINE WBC 4 /uL (0-25.8)
[2020-07-26] MEDS ORDERED: FOLIC ACID INJECTION - 1 MG, THIAMINE HCL 100 MG, MULTIVIT INJECTION ADULT 10 ML in SOD... IVPB ONE (09:00)
[2020-07-26 10:44] LABS: HEMATOCRIT 26.3 % (35.4-49); HEMOGLOBIN 8.3 GM/dL (11.7-16.9); MCH 27.5 pg (25.7-33.7); MCHC 31.4 g/dl (32.0-35.9); MEAN CELL VOLUME 87.6 fl (80-96); MEAN PLT VOLUME 8.6 fl (7.5-11.1); PLATELET COUNT 273 K/MM3 (134-434); WHITE BLOOD COUNT 14.8 K/mm3 (4.0-10.0)
[2020-07-26] MEDS: PANTOPRAZOLE SODIUM 40 MG VIAL IVPUSH SCH ×2 (12:37→22:18)
[2020-07-26] MEDS: SODIUM CHLORIDE 1,000 ML IV SCH (12:37)
[2020-07-26] MEDS ORDERED: CEFTRIAXONE 1 GM in DEXTROSE 5%-WATER - 50 ML IVPB SCH (13:30)
[2020-07-26] MEDS ORDERED: cefTRIAXone SODIUM 1 GM VIAL ONE (15:39)
[2020-07-26] MEDS ORDERED: DEXTROSE 5%-WATER - 50 ML IVPB ONE (15:40)
[2020-07-26] MEDS ORDERED: BISACODYL 5 MG TABLET.DR (FP) PO ONE (16:00)
[2020-07-26] MEDS ORDERED: PEG 3350/NA SULF BICARB CL/KCL 4000 ML SOLN.RECON PO ONE (17:00)
[2020-07-26 17:02] LABS: EOS % 0.1 % (0-4.5); HEMATOCRIT 23.1 % (35.4-49); HEMOGLOBIN 7.5 GM/dL (11.7-16.9); LYMPH % 16.6 % (8-40); MCH 27.5 pg (25.7-33.7); MCHC 32.3 g/dl (32.0-35.9); MEAN CELL VOLUME 85.1 fl (80-96); MEAN PLT VOLUME 8.4 fl (7.5-11.1); MONO % 14.7 % (3.8-10.2); NEUT % 67.6 % (42.8-82.8); PLATELET COUNT 216 K/MM3 (134-434); RBC 2.71 M/mm3 (4.00-5.60); RDW 18.2 % (11.9-15.9); WHITE BLOOD COUNT 8.5 K/mm3 (4.0-10.0)
[2020-07-26 17:44] LABS: URINE BACTERIA 95.5 /uL (0-1359)
[2020-07-26 18:26] VITALS: BMI 26.3
[2020-07-27] MEDS: SODIUM CHLORIDE 1,000 ML IV SCH ×2 (02:22→13:28)
[2020-07-27] MEDS ORDERED: FOLIC ACID INJECTION - 1 MG, THIAMINE HCL 100 MG, MULTIVIT INJECTION ADULT 10 ML in SOD... IVPB ONE (04:00)
[2020-07-27] MEDS ORDERED: SODIUM CHLORIDE 1,000 ML IV SCH (04:00)
[2020-07-27 08:12] LABS: BASO % 0.8 % (0-2.0); EOS % 1.7 % (0-4.5); HEMATOCRIT 21.2 % (35.4-49); HEMOGLOBIN 7.2 GM/dL (11.7-16.9); LYMPH % 20.9 % (8-40); MCH 27.8 pg (25.7-33.7); MCHC 33.7 g/dl (32.0-35.9); MEAN CELL VOLUME 82.4 fl (80-96); MONO % 11.8 % (3.8-10.2); NEUT % 64.8 % (42.8-82.8); PLATELET COUNT 202 K/MM3 (134-434); RBC 2.58 M/mm3 (4.00-5.60); RDW 18.3 % (11.9-15.9); WHITE BLOOD COUNT 7.2 K/mm3 (4.0-10.0)
[2020-07-27 09:09] LABS: ALBUMIN 2.5 g/dl (3.4-5.0); CALCIUM 7.7 mg/dL (8.5-10.1); MAGNESIUM 1.7 mg/dL (1.8-2.4)
[2020-07-27 09:10] LABS: BLOOD UREA NITROGEN 22.1 mg/dL (7-18)
[2020-07-27 09:13] LABS: CREATININE 1.1 mg/dL (0.55-1.3); PHOSPHOROUS 1.5 mg/dL (2.5-4.9)
[2020-07-27 09:15] LABS: BILIRUBIN,TOTAL 0.7 mg/dL (0.2-1); TOT PROT 5.3 g/dl (6.4-8.2)
[2020-07-27] MEDS ORDERED: DEXTROSE 5%-WATER - 50 ML IVPB ONE (09:48)
[2020-07-27] MEDS ORDERED: cefTRIAXone SODIUM 1 GM VIAL ONE (09:48)
[2020-07-27] MEDS ORDERED: MAGNESIUM SULF 50% (8.12 MEQ/2 ML-1 GM VIAL) IVPB ONE (09:56)
[2020-07-27] MEDS ORDERED: CEFTRIAXONE 1 GM in DEXTROSE 5%-WATER - 50 ML IVPB SCH (10:00)
[2020-07-27] MEDS ORDERED: PANTOPRAZOLE SODIUM 40 MG VIAL IVPUSH SCH (10:00)
[2020-07-27] MEDS ORDERED: POTASSIUM PHOSPHATE 30 MM in DEXTROSE 5%-WATER - 500 ML IVPB ONE ×2 (11:00→11:28)
[2020-07-27] MEDS ORDERED: MAGNESIUM 1GM/D5W 100ML - 100 ML IVPB IVPB ONE (12:00)
[2020-07-27] MEDS ORDERED: traZODone HCL 50 MG TABLET (FP) ONE (21:01)
[2020-07-27] MEDS: traZODone HCL 100 MG TABLET (FP) PO SCH (21:05)
[2020-07-27] MEDS: PANTOPRAZOLE SODIUM 40 MG VIAL IVPUSH SCH (21:05)
[2020-07-27 21:24] LABS: HEMATOCRIT 26.3 % (35.4-49); HEMOGLOBIN 8.8 GM/dL (11.7-16.9); MCH 27.9 pg (25.7-33.7); MCHC 33.5 g/dl (32.0-35.9); MEAN CELL VOLUME 83.1 fl (80-96); MEAN PLT VOLUME 7.9 fl (7.5-11.1); PLATELET COUNT 132 K/MM3 (134-434); RBC 3.17 M/mm3 (4.00-5.60); RDW 16.4 % (11.9-15.9); WHITE BLOOD COUNT 5.2 K/mm3 (4.0-10.0)
[2020-07-28 07:04] LABS: BASO % 0.6 % (0-2.0); EOS % 2.2 % (0-4.5); HEMATOCRIT 24.9 % (35.4-49); HEMOGLOBIN 8.4 GM/dL (11.7-16.9); LYMPH % 19.9 % (8-40); MCH 28.1 pg (25.7-33.7); MCHC 33.7 g/dl (32.0-35.9); MEAN CELL VOLUME 83.5 fl (80-96); MEAN PLT VOLUME 8.6 fl (7.5-11.1); MONO % 12.8 % (3.8-10.2); NEUT % 64.5 % (42.8-82.8); PLATELET COUNT 136 K/MM3 (134-434); RBC 2.98 M/mm3 (4.00-5.60); RDW 16.5 % (11.9-15.9); WHITE BLOOD COUNT 4.2 K/mm3 (4.0-10.0)
[2020-07-28 07:38] LABS: BLOOD UREA NITROGEN 6.3 mg/dL (7-18)
[2020-07-28 07:41] LABS: ALBUMIN 2.4 g/dl (3.4-5.0); CALCIUM 7.3 mg/dL (8.5-10.1); MAGNESIUM 1.6 mg/dL (1.8-2.4)
[2020-07-28 07:44] LABS: CREATININE 0.8 mg/dL (0.55-1.3); PHOSPHOROUS 2.7 mg/dL (2.5-4.9)
[2020-07-28 07:45] LABS: BILIRUBIN,TOTAL 0.6 mg/dL (0.2-1)
[2020-07-28] MEDS ORDERED: DEXTROSE 5%-WATER - 50 ML IVPB ONE (08:55)
[2020-07-28] MEDS ORDERED: cefTRIAXone SODIUM 1 GM VIAL ONE (08:55)
[2020-07-28] MEDS: POTASSIUM CHLORIDE TABS 20 MEQ TABLET.ER (FP) PO ONE ×2 (11:35→12:22)
[2020-07-28] MEDS: MAGNESIUM SULF 50% (8.12 MEQ/2 ML-1 GM VIAL) IVPB ONE ×2 (11:35→12:21)
[2020-07-28] MEDS: PANTOPRAZOLE SODIUM 40 MG VIAL IVPUSH SCH ×2 (11:36→22:17)
[2020-07-28] MEDS: SODIUM CHLORIDE 1,000 ML IV SCH (11:36)
[2020-07-28] MEDS: KCL 10 MEQ IVPB 10 MEQ/100 ML INFUS.BAG IVPB SCH ×2 (11:36→12:22)
[2020-07-28] MEDS: CEFTRIAXONE 1 GM in DEXTROSE 5%-WATER - 50 ML IVPB SCH ×2 (11:36→12:21)
[2020-07-28 16:11] LABS: HEMATOCRIT 25.9 % (35.4-49); HEMOGLOBIN 8.6 GM/dL (11.7-16.9); MCH 27.8 pg (25.7-33.7); MCHC 33.1 g/dl (32.0-35.9); MEAN CELL VOLUME 83.8 fl (80-96); MEAN PLT VOLUME 8.5 fl (7.5-11.1); PLATELET COUNT 147 K/MM3 (134-434); RBC 3.09 M/mm3 (4.00-5.60); RDW 16.8 % (11.9-15.9)
[2020-07-28 22:04] LABS: HEMATOCRIT 24.9 % (35.4-49); HEMOGLOBIN 8.3 GM/dL (11.7-16.9); MCHC 33.3 g/dl (32.0-35.9); MEAN CELL VOLUME 83.9 fl (80-96); MEAN PLT VOLUME 8.6 fl (7.5-11.1); PLATELET COUNT 156 K/MM3 (134-434); RBC 2.97 M/mm3 (4.00-5.60); RDW 16.6 % (11.9-15.9)
[2020-07-28] MEDS ORDERED: traZODone HCL 50 MG TABLET (FP) ONE (22:10)
[2020-07-28] MEDS: traZODone HCL 100 MG TABLET (FP) PO SCH (22:52)
[2020-07-29 07:34] LABS: HEMATOCRIT 23.2 % (35.4-49); HEMOGLOBIN 7.9 GM/dL (11.7-16.9); MCH 28.5 pg (25.7-33.7); MCHC 34.1 g/dl (32.0-35.9); MEAN CELL VOLUME 83.4 fl (80-96); MEAN PLT VOLUME 8.3 fl (7.5-11.1); PLATELET COUNT 144 K/MM3 (134-434); RBC 2.78 M/mm3 (4.00-5.60); RDW 16.7 % (11.9-15.9); WHITE BLOOD COUNT 3.9 K/mm3 (4.0-10.0)
[2020-07-29] MEDS ORDERED: DEXTROSE 5%-WATER - 50 ML IVPB ONE (09:14)
[2020-07-29] MEDS ORDERED: cefTRIAXone SODIUM 1 GM VIAL ONE (09:14)
[2020-07-29] MEDS: CEFTRIAXONE 1 GM in DEXTROSE 5%-WATER - 50 ML IVPB SCH (09:51)
[2020-07-29] MEDS: PANTOPRAZOLE SODIUM 40 MG VIAL IVPUSH SCH ×2 (09:52→22:06)
[2020-07-29 12:30] LABS: BASO % 0.7 % (0-2.0); EOS % 2.5 % (0-4.5); HEMATOCRIT 24.2 % (35.4-49); HEMOGLOBIN 8.2 GM/dL (11.7-16.9); LYMPH % 18.3 % (8-40); MCH 28.3 pg (25.7-33.7); MEAN CELL VOLUME 83.4 fl (80-96); MEAN PLT VOLUME 8.1 fl (7.5-11.1); MONO % 11.6 % (3.8-10.2); NEUT % 66.9 % (42.8-82.8); PLATELET COUNT 134 K/MM3 (134-434); WHITE BLOOD COUNT 3.3 K/mm3 (4.0-10.0)
[2020-07-29 12:35] LABS: ALBUMIN 2.4 g/dl (3.4-5.0); BLOOD UREA NITROGEN 4.3 mg/dL (7-18); CALCIUM 7.6 mg/dL (8.5-10.1)
[2020-07-29 12:38] LABS: CREATININE 1.1 mg/dL (0.55-1.3)
[2020-07-29 12:40] LABS: BILIRUBIN,TOTAL 0.3 mg/dL (0.2-1)
[2020-07-29] MEDS: SODIUM CHLORIDE 1,000 ML IV SCH (18:53)
[2020-07-29] MEDS ORDERED: traZODone HCL 50 MG TABLET (FP) ONE (21:24)
[2020-07-29] MEDS ORDERED: PANTOPRAZOLE 40 MG TABLET PO ONE (21:51)
[2020-07-29] MEDS: traZODone HCL 100 MG TABLET (FP) PO SCH ×2 (22:00→23:06)
[2020-07-29 23:28] VITALS: BP 155/95; PULSE 85; TEMP 98.8
== END 2020-07-30 00:09 | disposition short-term general hospital (02) | DRG 378 ==
LOC: JER 23:55 → JERBED 07-26 05:15 → JICU 07-26 10:05 → J6S 07-27 00:42 → J4W 07-27 11:26
PROVIDERS: ADMIT Internal Medicine Pulmonary Disease; ATTEND Internal Medicine
PROC: 30233N1 Transfusion of Nonautologous Red Blood Cells into Peripheral Vein, Percutaneous Approach (ICD-10-PCS; 2020-07-26)
PROC: 0DB68ZX Excision of Stomach, Via Natural or Artificial Opening Endoscopic, Diagnostic (ICD-10-PCS; 2020-07-28)
PROC: 0DB98ZX Excision of Duodenum, Via Natural or Artificial Opening Endoscopic, Diagnostic (ICD-10-PCS; 2020-07-28)
PROC: 0DJD8ZZ Inspection of Lower Intestinal Tract, Via Natural or Artificial Opening Endoscopic (ICD-10-PCS; principal; 2020-07-28 12:30)
DX: K92.2 Gastrointestinal hemorrhage, unspecified (principal); K86.1 Other chronic pancreatitis; N17.9 Acute kidney failure, unspecified; E87.2 Acidosis; D62 Acute posthemorrhagic anemia; W19.XXXA Unspecified fall, initial encounter; F10.10 Alcohol abuse, uncomplicated; N18.9 Chronic kidney disease, unspecified; L81.4 Other melanin hyperpigmentation; K31.89 Other diseases of stomach and duodenum; K57.30 Diverticulosis of large intestine without perforation or abscess without bleeding; K64.8 Other hemorrhoids; K29.50 Unspecified chronic gastritis without bleeding; K44.9 Diaphragmatic hernia without obstruction or gangrene; R00.0 Tachycardia, unspecified; I10 Essential (primary) hypertension; F41.8 Other specified anxiety disorders
CPT/HCPCS: 36415; 36430; 70450-TC; 71045-TC-FY; 72125-TC; 74176-TC; 80053; 80307; 81003; 82436; 82550; 82570; 83605; 83690; 83735; 84100; 84133; 84300; 84484; 85025; 85027; 85610; 85730; 86850; 86900; 86901; 86922; 87040; 87086; 87186; 93005; 93010; 99285-25; C9803; P9058; U0003; U0005

== ENCOUNTER 2020-11-03 10:57 | Inpatient (IN) | payer OTHER ==
[2020-11-03] MEDS ORDERED: SODIUM CHLORIDE 1,000 ML IV STA (14:04)
[2020-11-03 14:45] LABS: BASO % 1.4 % (0-2.0); EOS % 0.2 % (0-4.5); HEMATOCRIT 27.7 % (35.4-49); LYMPH % 24.4 % (8-40); MCH 28.1 pg (25.7-33.7); MCHC 32.4 g/dl (32.0-35.9); MEAN CELL VOLUME 86.6 fl (80-96); MEAN PLT VOLUME 8.5 fl (7.5-11.1); MONO % 8.9 % (3.8-10.2); NEUT % 65.1 % (42.8-82.8); PLATELET COUNT 251 10^3/uL (134-434); RBC 3.19 M/mm3 (4.00-5.60); RDW 26.5 % (11.9-15.9); WHITE BLOOD COUNT 6.1 K/mm3 (4.0-10.0)
[2020-11-03 14:52] LABS: INR 1.03 (0.83-1.09); PROTHROMBIN TIME (PATIENT) 12.6 SEC (9.7-13.0)
[2020-11-03 14:55] LABS: ACTIVATED PTT 23.3 SECONDS (25.2-36.5)
[2020-11-03 15:08] LABS: EPI CELLS 13 /uL (0-25.1); HYALINE CASTS 2 /uL (0-3.1); URINE APPEARANCE CLEAR; URINE BACTERIA 58 /uL (0-1359); URINE BILIRUBIN NEGATIVE (NEGATIVE); URINE COLOR YELLOW; URINE GLUCOSE (UA) NEGATIVE (NEGATIVE); URINE KETONE 2+ (NEGATIVE); URINE LEUK ESTERASE NEGATIVE (NEGATIVE); URINE NITRITE NEGATIVE (NEGATIVE); URINE PROTEIN 1+ (NEGATIVE); URINE RBC 13 /uL (0-23.9); URINE UROBILINOGEN 0.2 mg/dL (0.2-1.0); URINE WBC 29 /uL (0-25.8)
[2020-11-03] MEDS ORDERED: LORazepam 2 MG/ML SDV VIAL IVPUSH ONE (15:12)
[2020-11-03 15:14] LABS: ANISOCYTOSIS 1+; CHLORIDE 101 mmol/L (98-107); MACROCYTOSIS 1+; OVALOCYTE 1+; PLATELET ESTIMATE NORMAL; SODIUM 134 mmol/L (136-145)
[2020-11-03 15:16] LABS: CALCIUM 8.5 mg/dL (8.5-10.1)
[2020-11-03 15:17] LABS: ALBUMIN 2.9 g/dl (3.4-5.0); BLOOD UREA NITROGEN 32.7 mg/dL (7-18); CO2 17 mmol/L (21-32); GLUCOSE,RANDOM 154 mg/dL (74-106)
[2020-11-03 15:20] LABS: CREATININE 1.1 mg/dL (0.55-1.3); SGOT/AST 38 U/L (15-37); SGPT/ALT 22 U/L (13-61)
[2020-11-03 15:22] LABS: BILIRUBIN,TOTAL 0.5 mg/dL (0.2-1); TOT PROT 6.8 g/dl (6.4-8.2)
[2020-11-03 15:23] LABS: ALK PHOS 33 U/L (45-117)
[2020-11-03 15:25] LABS: ANION GAP 15 MMOL/L (8-16)
[2020-11-03] MEDS ORDERED: LORazepam 2 MG/ML SDV VIAL ONE (15:33)
[2020-11-03 17:04] LABS: CHLORIDE 103 mmol/L (98-107); SODIUM 135 mmol/L (136-145)
[2020-11-03 17:06] LABS: ALBUMIN 2.7 g/dl (3.4-5.0); ANION GAP 9 MMOL/L (8-16); BLOOD UREA NITROGEN 32.5 mg/dL (7-18); CALCIUM 7.8 mg/dL (8.5-10.1); CO2 22 mmol/L (21-32); GLUCOSE,RANDOM 180 mg/dL (74-106)
[2020-11-03 17:09] LABS: SGPT/ALT 17 U/L (13-61)
[2020-11-03 17:10] LABS: CREATININE 1.1 mg/dL (0.55-1.3); SGOT/AST 24 U/L (15-37)
[2020-11-03 17:11] LABS: BILIRUBIN,TOTAL 0.4 mg/dL (0.2-1); TOT PROT 5.7 g/dl (6.4-8.2)
[2020-11-03 17:13] LABS: ALK PHOS 32 U/L (45-117)
[2020-11-03] MEDS ORDERED: INSULIN REGULAR HUMAN 100 UNITS/ML *VIAL IVPUSH ONE (18:42)
[2020-11-03] MEDS ORDERED: DEXTROSE 50%-WATER - 25 GM/50 ML VIAL IVPUSH ONE (18:42)
[2020-11-03] MEDS ORDERED: DEXTROSE 50%-WATER 25 GM/50 ML DISP.SYRIN ONE (19:00)
[2020-11-03] MEDS: SODIUM CHLORIDE 1,000 ML IV SCH ×2 (19:07→23:42)
[2020-11-03] MEDS ORDERED: LACTATED RINGERS SOLUTION 1000 ML INFUS.BAG IV ONE (19:08)
[2020-11-03] MEDS ORDERED: LORazepam 2 MG/ML SDV VIAL IVPUSH PRN (20:47)
[2020-11-03] MEDS ORDERED: THIAMINE HCL 200 MG/2 ML VIAL IVPB ONE (20:48)
[2020-11-03 21:18] VITALS: BMI 25.2
[2020-11-03 21:59] LABS: HEMATOCRIT 25.8 % (35.4-49); HEMOGLOBIN 8.5 GM/dL (11.7-16.9); MCH 27.8 pg (25.7-33.7); MEAN CELL VOLUME 84.3 fl (80-96); MEAN PLT VOLUME 8.3 fl (7.5-11.1); PLATELET COUNT 197 10^3/uL (134-434); RBC 3.06 M/mm3 (4.00-5.60); RDW 26.7 % (11.9-15.9); WHITE BLOOD COUNT 5.3 K/mm3 (4.0-10.0)
[2020-11-03] MEDS: PANTOPRAZOLE SODIUM 40 MG VIAL IVPUSH SCH (23:41)
[2020-11-04] MEDS: INSULIN SLIDING SCALE (NOVOLOG) 1 VIAL SQ SCH ×4 (00:08→18:02)
[2020-11-04 08:39] LABS: HEMATOCRIT 22.8 % (35.4-49); HEMOGLOBIN 7.5 GM/dL (11.7-16.9); MCH 28.1 pg (25.7-33.7); MCHC 32.8 g/dl (32.0-35.9); MEAN CELL VOLUME 85.8 fl (80-96); MEAN PLT VOLUME 8.5 fl (7.5-11.1); PLATELET COUNT 112 10^3/uL (134-434); RBC 2.66 M/mm3 (4.00-5.60); RDW 26.8 % (11.9-15.9); WHITE BLOOD COUNT 3.3 K/mm3 (4.0-10.0)
[2020-11-04 09:04] LABS: ALBUMIN 2.6 g/dl (3.4-5.0); CALCIUM 7.7 mg/dL (8.5-10.1)
[2020-11-04 09:07] LABS: CREATININE 0.9 mg/dL (0.55-1.3)
[2020-11-04 09:09] LABS: BILIRUBIN,TOTAL 0.6 mg/dL (0.2-1); TOT PROT 5.3 g/dl (6.4-8.2)
[2020-11-04] MEDS: PANTOPRAZOLE SODIUM 40 MG VIAL IVPUSH SCH (09:21)
[2020-11-04] MEDS ORDERED: FOLIC ACID 1 MG TABLET (FP) PO SCH (10:00)
[2020-11-04] MEDS ORDERED: THIAMINE HCL 100 MG TABLET (FP) PO SCH (10:00)
[2020-11-04 10:32] VITALS: TEMP 98.6
[2020-11-04] MEDS: SODIUM CHLORIDE 1,000 ML IV SCH (12:51)
[2020-11-04 14:27] VITALS: BP 136/80; PULSE 94
[2020-11-04 15:13] LABS: BASO % 1.1 % (0-2.0); EOS % 1.7 % (0-4.5); HEMATOCRIT 23.2 % (35.4-49); HEMOGLOBIN 7.7 GM/dL (11.7-16.9); LYMPH % 22.8 % (8-40); MCHC 33.2 g/dl (32.0-35.9); MEAN CELL VOLUME 84.3 fl (80-96); MEAN PLT VOLUME 8.1 fl (7.5-11.1); MONO % 10.7 % (3.8-10.2); NEUT % 63.7 % (42.8-82.8); PLATELET COUNT 112 10^3/uL (134-434); RBC 2.75 M/mm3 (4.00-5.60); RDW 26.7 % (11.9-15.9); WHITE BLOOD COUNT 3.1 K/mm3 (4.0-10.0)
[2020-11-04] MEDS ORDERED: NAPH,MB-DB/K PH,MBDB POWDER PACKET PO SCH (22:00)
== END 2020-11-04 18:33 | disposition left against medical advice (07) | DRG 378 ==
LOC: JER 10:57 → JERBED 16:37 → J7W 20:58
PROVIDERS: ADMIT Internal Medicine; ATTEND Internal Medicine
DX: K92.2 Gastrointestinal hemorrhage, unspecified (principal); D62 Acute posthemorrhagic anemia; I10 Essential (primary) hypertension; F10.10 Alcohol abuse, uncomplicated; F41.8 Other specified anxiety disorders; K44.9 Diaphragmatic hernia without obstruction or gangrene
CPT/HCPCS: 36415; 71046-TC-FY; 73030-TC-LT-FY; 80053; 81003; 82272; 82962; 83605; 83735; 84100; 84484; 85025; 85027; 85610; 85730; 87086; 93005; 93010; 99285-25; C9803; G0378; U0003; U0005

== ENCOUNTER 2022-09-24 17:40 | Emergency (ER) | payer OTHER ==
[2022-09-24 17:46] VITALS: BP 130/82; PULSE 108; RESP 18; TEMP 98.3; BMI 31.4
== END 2022-09-24 20:53 | disposition home or self-care (01) ==
LOC: JER 17:40
DX: R20.2 Paresthesia of skin (principal)
CPT/HCPCS: 99282-25